=== PATIENT | female | born 1990 | race Caucasian/White ===

== ENCOUNTER → 2018-09-27 12:26 | Outpatient (CLI) | payer MEDICAID, SELFPAY ==
[2018-09-27 13:31] LABS: Absolute Lymphocyte Count 2.85 X10^3/ul (0.83-4.51); Absolute Neutrophil Count 3.1 X10^3/uL (2.0-7.7); Basophil# 0.03 X10^3/uL; Basophil% 0.4 % (0-1); Eosinophil# 0.21 X10^3/uL; Eosinophils% 3.1 % (0-5); Hematocrit 36.6 % (37-47); Hemoglobin 11.8 g/dl (12.0-15.0); Lymphocyte # 2.85 X10^3/ul (4.0); Lymphocyte % 41.9 % (19-41); Mean Corp Hgb Conc 32.2 g/gl (32-36); Mean Corpuscular Hgb 30.6 pg (27.0-32.0); Mean Corpuscular Volume 94.8 fL (81-99); Mean Platelet Vol. 11.3 fl (6.2-12.0); Monocyte# 0.66 X10^3/uL; Monocyte% 9.7 % (0-10); Neutrophil # 3.05 X10^3/uL (2.7-7.7); Neutrophil % 44.8 % (47-70); Platelet Count 215 K/mm3 (150-450); RBC Distribution Width SD 48.4 fl (35.1-43.9); Red Blood Count 3.86 M/mm3 (4.2-5.4); White Blood Count 6.8 K/mm3 (4.4-11.0)
[2018-09-27 13:32] LABS: POSITIVE COUNT NO; POSITIVE DIFFERENTIAL NO; POSITIVE MORPHOLOGY NO
[2018-09-27 13:39] LABS: Protein, Urine (Random) 15.2 mg/dL (<11.9); Protein:Creat Ratio 217 mg/g CRE (0-200)
[2018-09-27 14:02] LABS: ALB/GLOB Ratio 0.8 RATIO (0.9-2.4); AST(SGOT) 30 U/L (15-37); Alanine Aminotransfer ALT/SGPT 41 U/L (13-56); Alkaline Phosphatase 76 U/L (45-117); Anion Gap 8 (5-15); BUN 19 mg/dL (7-18); BUN/Creat Ratio 28.1 RATIO (10-20); Calcium,Total 8.4 mg/dL (8.5-10.1); Chloride 106 mmol/L (98-107); Creatinine, Serum 0.68 mg/dL (0.55-1.02); EST Glomerular Filtration Rate 112 mL/min (>60); Est Glom Filt Rate - Afr Amer 135 mL/min (>60); Globulin 3.9 g/dL (2.2-4.2); Glucose 88 mg/dL (74-106); Phosphorus 3.8 mg/dL (2.5-4.9); Potassium 4.2 mmol/L (3.5-5.1); Protein, Total 6.9 g/dL (6.4-8.2); Sodium Level 141 mmol/L (136-145)
[2018-09-27 14:09] LABS: PTHIN 55.6 pg/mL (18.4-80.1)
[2018-09-27 14:39] LABS: Carbamazepine (Tegretol) 5.2 ug/mL (4.0-12.0); Phenytoin (Dilantin) Level 14.4 mL (10.0-20.0); Valproic Acid (Depakene) Level 63 ug/mL (50-100)
== END ==
PROVIDERS: Family Provider Family Medicine; PCP Family Medicine; Referring Provider Psychiatry & Neurology Neurology; Visit Provider Psychiatry & Neurology Neurology
DX: N18.1 Chronic kidney disease, stage 1 (principal); R56.9 Unspecified convulsions
CPT/HCPCS: 36415; 80053; 80156; 80164; 80185; 82306; 82570; 83970; 84100; 84156; 85025

== ENCOUNTER → 2019-02-15 16:44 | Outpatient (CLI) | payer MEDICAID, SELFPAY ==
--- NOTE | 2019-02-15 17:00 | RAD_ITS ---
STUDY: X-RAY CHEST REASON FOR EXAM: Female, 28 years old. Abnormal weight loss. Cough. TECHNIQUE: PA and lateral views of the chest. COMPARISON: None. FINDINGS: The lungs are clear and expanded. There is no demonstrated pleural abnormality. Normal size heart. Normal mediastinum and nora. Normal visualized pulmonary arteries. Normal visualized aortic arch and descending thoracic aorta. Is marked scoliosis of the thoracolumbar spine. Normal visualized ribs, clavicles, and shoulders. There is no demonstrated abnormality of the visualized soft tissue structures of the upper abdomen. RAD/Chest PA and Lateral IMPRESSION: No acute cardiopulmonary disease. Electronically Signed: Tejas Bethea DO at 18:12 EDT Tel [phone], Service support ,
[2019-02-15 17:04] LABS: Absolute Lymphocyte Count 4.25 X10^3/uL (0.83-4.51); Basophil# 0.06 X10^3/uL; Basophil% 0.6 % (0-1); Eosinophil# 0.09 X10^3/uL; Eosinophils% 0.8 % (0-5); Hematocrit 42.7 % (37-47); Hemoglobin 13.7 g/dL (12.0-15.0); Lymphocyte # 4.25 X10^3/ul (4.0); Lymphocyte % 39.8 % (19-41); Mean Corp Hgb Conc 32.1 g/dL (32-36); Mean Corpuscular Hgb 30.6 pg (27.0-32.0); Mean Corpuscular Volume 95.3 fL (81-99); Mean Platelet Vol. 11.1 fl (6.2-12.0); Monocyte# 1.19 X10^3/uL; Monocyte% 11.2 % (0-10); NRBC Flagged by Analyzer 0 % (0-5); Neutrophil # 5.04 X10^3/uL (2.7-7.7); Neutrophil % 47.2 % (47-70); POSITIVE MORPHOLOGY YES; Platelet Count 162 K/mm3 (150-450); RBC Distribution Width CV 13.9 % (11.6-14.6); RBC Distribution Width SD 48.9 fl (35.1-43.9); Red Blood Count 4.48 M/mm3 (4.2-5.4); White Blood Count 10.7 K/mm3 (4.4-11.0)
[2019-02-15 17:12] LABS: Differential Indicated SCAN CRITERIA MET
[2019-02-15 17:30] LABS: Differential Comment SCANNED
[2019-02-15 17:35] LABS: ALB/GLOB Ratio 0.7 RATIO (0.9-2.4); AST(SGOT) 35 U/L (15-37); Alanine Aminotransfer ALT/SGPT 56 U/L (13-56); Albumin, Serum 3.1 g/dL (3.2-5.0); Alkaline Phosphatase 71 U/L (45-117); Anion Gap 10 (5-15); BUN 32 mg/dL (7-18); BUN/Creat Ratio 36.8 RATIO (10-20); Calcium,Total 8.9 mg/dL (8.5-10.1); Chloride 111 mmol/L (98-107); Creatinine, Serum 0.87 mg/dL (0.55-1.02); EST Glomerular Filtration Rate 83 mL/min (>60); Est Glom Filt Rate - Afr Amer 101 mL/min (>60); Globulin 4.3 g/dL (2.2-4.2); Glucose 94 mg/dL (74-106); Potassium 4.2 mmol/L (3.5-5.1); Prealbumin 21.3 mg/dL (20.0-40.0); Protein, Total 7.4 g/dL (6.4-8.2); Sodium Level 142 mmol/L (136-145)
== END ==
PROVIDERS: Family Provider Family Medicine; PCP Family Medicine; Referring Provider Nurse Practitioner Family; Visit Provider Nurse Practitioner Family
DX: R13.10 Dysphagia, unspecified (principal); R63.4 Abnormal weight loss
CPT/HCPCS: 36415; 71046; 80053; 84134; 85025

== ENCOUNTER → 2019-02-28 12:43 | Outpatient (CLI) | payer MEDICAID, SELFPAY ==
--- NOTE | 2019-02-28 12:44 | RAD_ITS ---
STUDY: SWALLOWING STUDY REASON FOR EXAM: Female, 28 years old. Dysphagia. TECHNIQUE: The examination was performed with Speech Pathology in attendance. Under fluoroscopic observation, the patient ingested thin barium, thick barium, barium pudding, and barium coated cracker. FLUOROSCOPY TIME: 1:00 minutes/seconds. 1157 fluoroscopic images were obtained. RADIOLOGIST INVOLVEMENT: Radiologist was present and providing direct supervision. COMPARISON: None. FINDINGS: The following was observed during swallowing of the various mixtures of barium: Thin Barium: Solid aspiration with ingestion of thin liquids. Thick Barium: There was no evidence of aspiration or laryngeal penetration. Barium Pudding: There was no evidence of aspiration or laryngeal penetration. Barium Coated Cracker: There was no evidence of aspiration or laryngeal penetration. RAD/Swallowing Function w/Video IMPRESSION: Silent aspiration with ingestion of thin liquids. The swallow study findings were discussed with the patient by the speech pathologist at the conclusion of the examination. Please see speech pathology report for more information and recommendations. Electronically Signed: Vitor Gaines, at 15:09 EDT , Service support ,
--- NOTE | 2019-02-28 13:53 | SP.MBSS_ITS ---
PRIMARY / SECONDARY DIAGNOSIS: Dysphagia, unspecified (R13.10) REFERRING PHYSICIAN: Werner Cummings DIRECTOR INTERNAL AUDIT-C CURRENT DIET: regular textures, thin liquids DENTITION: natural teeth MENTAL STATUS: Pt nonverbal with mother present to respond to questions. RESPIRATORY STATUS: O2 via room air PREVIOUS MODIFIED BARIUM SWALLOW STUDY: N/A ?REASON FOR REFERRAL: The patient?s mother has reported the patient is not eating well with roughly 20lb weight loss since November 2018. Patients mother reports patient having occasional coughing with liquids. MEDICAL HISTORY: chronic kidney disease, scoliosis, seizures ? STUDY FINDINGS: Patient participated in a Modified Barium Swallow (MBS) study on 02/28/2019. Dr. Gaines was the radiologist present for this evaluation. This study was recorded in the lateral view and images were sent to PACs for storage. The following consistencies were presented to this patient for analysis of oropharyngeal swallow function: thin liquid, nectar thick liquid, honey thick liquid, and Kitty Doone cookie. Results of the MBS are as follows: ? ? ? PENETRATION / ASPIRATION SCALE (JONES): 1 = does not enter airway 2 = enters airway/above vocal folds/ejected 3 = enters airway/above vocal folds/not ejected 4 = enters airway/contacts vocal folds/ejected 5 = enters airway/contacts vocal folds/not ejected 6 = enters airway/below vocal folds/ejected 7 = enters airway/below vocal folds/not ejected despite effort 8 = enters airway/below vocal folds/no effort ? PENETRATION / ASPIRATION SCALE (SCORE): 1) Thin liquid via single sip from cup= 8 2) [place] thick liquid via single sip from cup = 2 3) [place] thick liquid via single sip from cup =3 4) Honey thick liquid via single sip from cup = 1 5) Cookie = 5 *mixed with residue from honey thick liquid ? IMPRESSION: moderate oropharyngeal dysphagia (R13.12) ? ORAL PHASE CHARACTERIZED BY: ? LABIAL SEAL: no labial escape TONGUE CONTROL DURING BOLUS MANIPULATION: posterior escape of less than half of bolus BOLUS PREPARATION / MASTICATION: slow prolonged chewing/mashing with complete recollection BOLUS TRANSPORT / LINGUAL MOTION: slowed tongue motion ORAL RESIDUE: residue collection on oral structures PHARYNGEAL PHASE CHARACTERIZED BY: INITIATION OF PHARYNGEAL SWALLOW: bolus head in pyriforms at first hyoid excursion SOFT PALATE ELEVATION: no bolus between soft palate and pharyngeal wall LARYNGEAL ELEVATION: partial superior movement of thyroid cartilage/partial approximation of arytenoids cartilage to epiglottic petiole ANTERIOR HYOID EXCURSION: trace anterior movement EPIGLOTTIC MOVEMENT: partial epiglottic inversion *difficult to view due to patient positioning LARYNGEAL VESTIBULE CLOSURE AT HEIGHT OF SWALLOW: incomplete laryngeal vestibule closure with narrow column of air/contrast in laryngeal vestibule PHARYNGEAL STRIPPING WAVE: pharyngeal stripping wave present / complete PHARYNGOESOPHAGEAL SEGMENT OPENING: minimal distension and minimal duration with marked obstruction of flow TONGUE BASE RETRACTION: wide column of contrast between tongue base and posterior pharyngeal wall PHARYNGEAL RESIDUE: collection of residue within or on pharyngeal structures ESOPHAGEAL PHASE CHARACTERIZED BY: ESOPHAGEAL BOLUS CLEARANCE IN THE UPRIGHT POSITION: could not view due to patient positioning ? INTERPRETATION OF RESULTS: Patient presents with moderate oropharyngeal dysphagia (R13.12) likely secondary to increased lethargy and muscle atrophy of swallowing musculature due to decreased appetite over course of past several months. Results of this test were limited due to patient decreased participation (i.e. not initially wanting to trial sips/bites and pulling away) and decreased ability to follow directions. Assistance from patient?s mother required to feed patient bolus trials. Therefore, only a limited amount of trials were able to be completed this date. Oral phase primarily marked by mastication inefficiency with Kitty Doone shortbread cookie resulting in swallow onset delay and premature bolus loss. Oral residue remained. Pharyngeal phase primarily marked by delayed pharyngeal swallow onset timing resulting in reduced closure of the airway during deglutition leading to silent aspiration of thin liquids and penetration above vocal cords with nectar thick liquids. No aspiration with honey thick liquids. Pharyngeal residue noted with all consistencies. Given silent aspiration observed during assessment, clinical assessment at bedside relying on identification of classic overt signs and symptoms of aspiration would be unreliable. RECOMMENDATIONS: DIET TEXTURE RECOMMENDATIONS: Will recommend a mechanical soft textured, nectar liquid diet.? ? COMPENSATORY STRATEGIES RECOMMENDED: Will recommend 1:1 supervision during meals, double swallow with every bite/sip, reduced bolus volume, reduced rate of intake, avoid straws, seated upright at 90 degrees during PO intake, and remain upright for 30-60 minutes post meal (GERD precaution). The patient requires intensive skilled speech-language intervention targeting continued diet texture management, training and implementation of recommended compensatory strategies, training and implementation of recommended oropharyngeal strengthening exercises to facilitate improved oropharyngeal strength and coordination, training, implementation, and patient education regarding implementation of the May Free Water Protocol (FFWP), and patient and caregiver training targeting meal preparation / thickened liquid preparation. This patient would be an excellent candidate for the May Free Water Protocol (FFWP) to facilitate improved liquid intake between meals due to the patient?s strong family support following patient and family training. Would strongly discourage advancement past nectar thickened liquids without completion of a repeat modified barium swallow study in 3-6 months (if clinically appropriate) due to the extent of silent aspiration. The patient demonstrated significant difficulty following all directions presented, with concern for likelihood of compromise in successful execution of recommended compensatory strategies. Results and recommendations were discussed with the patient, patient?s mother, and patient?s sister immediately following MBS completion, with the patient?s mother and sister verbalizing understanding and agreement with all recommendations and education provided. ? IMAGE COUNT: [id number] Narda Singh M.A., CCC-PATIENT FINANCIAL SERVICES SPECIALIST Speech Language Pathologist [facility] [address] [place] [address] [phone]
== END ==
PROVIDERS: Family Provider Family Medicine; PCP Family Medicine; Referring Provider Nurse Practitioner Family; Visit Provider Nurse Practitioner Family
DX: R13.10 Dysphagia, unspecified (principal); R63.4 Abnormal weight loss
CPT/HCPCS: 74230; 92611

== ENCOUNTER 2019-03-26 11:08 | Inpatient (IN) | payer MEDICAID, SELFPAY ==
[2019-03-26] VITALS (12 sets, daily range): BP systolic 74–92; BP diastolic 48–60; PULSE 63–79; RESP 16–32; TEMP 36.1–37.4; O2SAT 95–99; BMI 17.3; BMI 16.5
[2019-03-26 12:46] LABS: Absolute Lymphocyte Count 1.21 X10^3/uL (0.83-4.51); Basophil# 0.03 X10^3/uL; Basophil% 0.3 % (0-1); Hematocrit 42.7 % (37-47); Hemoglobin 14.2 g/dL (12.0-15.0); Lymphocyte # 1.21 X10^3/ul (4.0); Lymphocyte % 11.6 % (19-41); Mean Corp Hgb Conc 33.3 g/dL (32-36); Mean Corpuscular Volume 93.2 fL (81-99); Mean Platelet Vol. 10.4 fl (6.2-12.0); Monocyte# 1.13 X10^3/uL; Monocyte% 10.9 % (0-10); NRBC Flagged by Analyzer 0 % (0-5); Neutrophil # 7.98 X10^3/uL (2.7-7.7); Neutrophil % 76.8 % (47-70); Platelet Count 98 K/mm3 (150-450); RBC Distribution Width CV 15.2 % (11.6-14.6); RBC Distribution Width SD 51.8 fl (35.1-43.9); Red Blood Count 4.58 M/mm3 (4.2-5.4); White Blood Count 10.4 K/mm3 (4.4-11.0)
[2019-03-26 13:04] LABS: ALB/GLOB Ratio 0.7 RATIO (0.9-2.4); AST(SGOT) 109 U/L (15-37); Alanine Aminotransfer ALT/SGPT 92 U/L (13-56); Albumin, Serum 3.3 g/dL (3.2-5.0); Alkaline Phosphatase 72 U/L (45-117); Anion Gap 11 (5-15); BUN 34 mg/dL (7-18); BUN/Creat Ratio 31.2 RATIO (10-20); Calcium,Total 9.5 mg/dL (8.5-10.1); Chloride 105 mmol/L (98-107); Creatinine, Serum 1.09 mg/dL (0.55-1.02); EST Glomerular Filtration Rate 64 mL/min (>60); Est Glom Filt Rate - Afr Amer 78 mL/min (>60); Estimated Creatinine Clearance 56.57 ml/min; Globulin 4.9 g/dL (2.2-4.2); Glucose 62 mg/dL (74-106); Potassium 5.2 mmol/L (3.5-5.1); Protein, Total 8.2 g/dL (6.4-8.2); Sodium Level 138 mmol/L (136-145)
[2019-03-26 13:11] LABS: White Blood Cells 0 SEEN /hpf (0-5)
[2019-03-26 13:16] LABS: Color, Urine Yellow (Yellow); Glucose, Dipstick Normal (Normal); Ketone-Dipstick 50 mg/dl (Negative); Leukocyte Esterase-Dipstick Negative /ul (Negative); Nitrite-Dipstick Negative (Negative); Occult Blood-Urine 25 /ul (Negative); Protein-Dipstick 30 mg/dl (Negative); Urine Clarity Sl. Cloudy (Clear); Urine Urobilinogen 4 mg/dl (Normal)
[2019-03-26 13:18] LABS: Urine Bilirubin Dipstick 1 mg/dL (Negative)
[2019-03-26 13:25] LABS: Bacteria RARE /hpf (None Seen); Mucous, Urine 1+ /hpf (<or=2+); Red Blood Cells-Urine 0-5 SEEN /hpf (0-5); Squamous Epithelial Cells - UA 0-5 SEEN /hpf (5-10)
[2019-03-26 13:47] LABS: Valproic Acid (Depakene) Level 86 ug/mL (50-100)
--- NOTE | 2019-03-26 15:20 | CM.ED ---
Social Work Consult: Support Informant: Dr. Rodriguez Met with patient and patient parents in room. Patient is unable to speak with this social media intern. Patient family stating that patient is dependent for care and treatment. Patient was able to eat on own up until the past few days when patient started to need family to feed patient. Patient family stating that patient has stopped swallowing food and that patient family believes patient change in behavior is due to medication change in 2018. Patient family concerned about patient having needed intake. Patient family stating to have support in the community and to want to see patient taken care of. This social media intern voicing that Emergency department doctor will work with patient and patient family on setting up course of treatment. Collaborating with Dr. Rodriguez, Dr. Rodriguez updated on above information and plans to speak with family about PEG tube options. Cody Marcial MSW, PUJA
--- NOTE | 2019-03-26 15:22 | CT_ITS ---
We are attempting to reach an attending provider to discuss findings. An addendum with communication details will be sent when the communication is complete. STUDY: CT BRAIN WITHOUT CONTRAST REASON FOR EXAM: Female, 28 years old. Mental status change. Seizures. RADIATION DOSAGE (If Supplied By Facility): CTDIvol = ( 44.99 ) mGy, DLP = ( 897.35 ) mGycm TECHNIQUE: Transaxial CT imaging of the brain was performed without administration of intravenous contrast material. Individualized dose optimization techniques were used for this CT. COMPARISON: No relevant priors. FINDINGS: Normal soft tissue structures. Normal calvarium. Normal size ventricles and extra-axial spaces for the patient's age. Normal white matter tracts of the cerebral hemispheres. There is incomplete development of the corpus callosum. There is calcification of the basal ganglia. There is subtle increased density of the right anterior basal ganglia, series 2 image 17/49. Normal brainstem. Normal cerebellum. There are no findings of an acute ischemic infarction. Normal visualized paranasal sinuses. CT/Brain/Head without Contrast IMPRESSION: Right basal ganglia increased density with hemorrhage versus early calcification. There is no mass effect or shift of midline structures. Congenital anomaly suggested. MRI recommended for further evaluation. Electronically Signed: Gerber Flores MD at 15:51 EDT , Service support ,
--- NOTE | 2019-03-26 15:31 | ED.VIS.GEN ---
History of Present Illness Chief Complaint: General Illness Detail of Chief Complaint: Not eating or drinking Informant: Family Limited by: - - Nonverbal with seizure disorder Onset: Days Context: Sudden Onset Timing: Continuous Quality: No solid intake for several days and minimal liquid intake Location: Home Current Severity: Severe Maximum Severity: Severe Worsened by: Unknown Relieved by: Nothing Associated Symptoms: No recent seizure Narrative: Patient is a 28-year-old cognitively impaired female with history of seizure disorder who was brought to the emerge department because she has not had anything to eat or drink of substance in the past week. She has not taken any of her medication. There is been no reported vomiting or diarrhea. Parent states she is nonverbal. History is limited. There is been no documented fever. There is no change in the color of her urine or odor to her urine. Prior similar symptoms: Yes Recent Illness/Hospitalization: No - Past Medical History (1) Chronic kidney disease Status: Chronic (2) Mental retardation, idiopathic moderate Status: Chronic (3) Scoliosis Status: Chronic (4) Seizures Status: Chronic Past Medical History - Allergies and Home Meds Allergies/Adverse Reactions: Allergies No Known Allergies Allergy (Unverified 03/26/19 11:23) Primary Care Physician: Zacarias Paz DO [Primary Care Provider] - Prior records reviewed: Yes Surgical History: no surgical history Lives: With Family Smoking Status: Never smoker Alcohol: None Drugs: None Review of Systems ROS: Unable to Obtain - Nonverbal Physical Exam Vital Signs/Narrative: Vital Signs Temp Pulse Resp BP Pulse Ox 03/26/19 15:00 97.6 F L 70 19 H 87/54 L 98 03/26/19 14:00 97.8 F 67 26 H 92/56 L 98 03/26/19 13:08 65 27 H 88/60 L 99 03/26/19 13:00 97.5 F L 67 27 H 88/60 L 99 03/26/19 12:56 97.5 F L 71 32 H 88/60 L 99 Inital Vital Signs reviewed: Yes General: Cachectic, - - Depressed level of consciousness Head: Normocephalic, Atraumatic Eyes: Perrl, EOMI. Negative for: Pale conjunctiva, Scleral icterus ENT: No rhinorrhea, TM's clear, Dry mucous membranes Neck: Supple, Nontender, No lymphadenopathy, No JVD Cardiovascular: Regular rate, Regular rhythm, No murmurs, Normal S1, Normal S2 Respiratory: No distress, CTA bilaterally, Chest nontender Abdomen: Soft, Nontender, Nondistended, Normal bowel sounds Rectal: Deferred Back: Nontender, Normal Inspection Extremities: Nontender, No edema Skin: No rash, Pallor. Negative for: Cyanosis, Diaphoresis, Jaundice Neurological: Cranial nerves II-XII grossly intact. Negative for: Alert, Oriented x3 Psychological: - - Nonverbal Diagnostic/Tx/Re-eval 03/26/19 15:22 CT Head [Brain/Head without Contrast] [CT] Stat Laboratory Results 03/26/19 03/26/19 03/26/19 12:35 12:35 12:35 WBC 10.4 RBC 4.58 Hgb 14.2 Hct 42.7 MCV 93.2 MCH 31.0 MCHC 33.3 RDW Std Deviation 51.8 H RDW Coeff of Narendra 15.2 H Plt Count 98 L MPV 10.4 Immature Gran % (Auto) 0.400 Neut % (Auto) 76.8 H Lymph % (Auto) 11.6 L Wilkes % (Auto) 10.9 H Eos % (Auto) 0.0 Baso % (Auto) 0.3 Absolute Neuts (auto) 8.0 H Absolute Lymphs (auto) 1.21 Nucleated RBC % 0 Sodium 138 Potassium 5.2 H Chloride 105 Carbon Dioxide 22.0 Anion Gap 11 BUN 34 H Creatinine 1.09 H Estim Creat Clear Calc 56.57 Est GFR (MDRD) Af Amer 78 Est GFR (MDRD) Non-Af 64 BUN/Creatinine Ratio 31.2 H Glucose 62 L Calcium 9.5 Total Bilirubin 0.70 AST 109 H ALT 92 H Alkaline Phosphatase 72 Total Protein 8.2 Albumin 3.3 Globulin 4.9 H Albumin/Globulin Ratio 0.7 L Urine Color Urine Clarity Urine pH Ur Specific Burg[place] Urine Protein Urine Glucose (UA) Urine Ketones Urine Occult Blood Urine Nitrite Urine Bilirubin Urine Urobilinogen Ur Leukocyte Esterase Urine RBC Urine WBC Ur Squamous Epith Cells Urine Bacteria Urine Mucus Valproic Acid 86 03/26/19 13:05 WBC RBC Hgb Hct MCV MCH MCHC RDW Std Deviation RDW Coeff of Narendra Plt Count MPV Immature Gran % (Auto) Neut % (Auto) Lymph % (Auto) Wilkes % (Auto) Eos % (Auto) Baso % (Auto) Absolute Neuts (auto) Absolute Lymphs (auto) Nucleated RBC % Sodium Potassium Chloride Carbon Dioxide Anion Gap BUN Creatinine Estim Creat Clear Calc Est GFR (MDRD) Af Amer Est GFR (MDRD) Non-Af BUN/Creatinine Ratio Glucose Calcium Total Bilirubin AST ALT Alkaline Phosphatase Total Protein Albumin Globulin Albumin/Globulin Ratio Urine Color Yellow Urine Clarity Sl. Cloudy Urine pH 5.0 Ur Specific [place] 1.020 Urine Protein 30 H Urine Glucose (UA) Normal Urine Ketones 50 H Urine Occult Blood 25 H Urine Nitrite Negative Urine Bilirubin 1 H Urine Urobilinogen 4 H Ur Leukocyte Esterase Negative Urine RBC 0-5 SEEN Urine WBC 0 SEEN Ur Squamous Epith Cells 0-5 SEEN Urine Bacteria RARE Urine Mucus 1+ Valproic Acid CT was reviewed by me. There is no acute intracranial pathology noted. Awaiting formal read. Hospitalist was paged for admission and placement of feeding tube by surgery tomorrow. - Medical Decision Making Patient brought in for evaluation because of poor p.o. intake. Parents were made aware of lab results. Clinically child is dehydrated. Discussed placement of feeding tube. Also had case management see patient. Case was discussed with Dr. Pratt who is willing to put a feeding tube in. Since we are concerned with her change in behavior. For this reason a CT of the head was obtained. ED Disposition - Plan for ED Patient: Disposition: Acute Care [facility] Diagnosis: Change in mental status, Weight loss of more than 10% body weight, Severe dehydration, History of seizure disorder, Mental retardation, idiopathic moderate Referrals: Zacarias Paz DO [Primary Care Provider] -
--- NOTE | 2019-03-26 15:51 | HP.PCM_ITS ---
Problem List (1) Weight loss of more than 10% body weight Status: Acute (2) Severe dehydration Status: Acute (3) History of seizure disorder Status: Chronic (4) Mental retardation, idiopathic moderate Status: Chronic (5) Chronic kidney disease Status: Chronic Qualifiers: Chronic kidney disease stage: stage 2 (mild) Qualified Code(s): N18.2 - Chronic kidney disease, stage 2 (mild) (6) Scoliosis Status: Chronic Qualifiers: Scoliosis type: idiopathic Idiopathic scoliosis type: adolescent Spinal region: thoracolumbar Qualified Code(s): M41.125 - Adolescent idiopathic scoliosis, thoracolumbar region (7) Seizures Status: Chronic History of Present Illness Date of Admission: 03/26/19 Chief Complaint: Fatigue, malaise, poor intake The patient is a 28 y/o F w/ PMHx: Moderate MRR, Seizure disorder, CKD stage II (baseilne 0.6-0.8), severe protein calorie nutrition who presents to the [facility] on 03/26/2019 with history of progressive decline over the last 4 weeks following changes to her antiepileptic drugs including di scontinuation of Tegretol with initiation of Keppra with increased seizure activity following with then transition to Zonegran and now Keppra wean with poor oral intake including both food and water with no specific intake of either over the last 3 days with > 10 pound weight loss over this time prompting ED presentation. Family notes that initially with Tegretol discontinuation patient has been much more alert and awake but then did have onset of increased seizure activity. Patient had breakthrough seizure approximately 1 week prior to current presentation and per family report was described as severe per school. Work-up in the ED included CBC with WBC 10.4, hemoglobin 14.2, platelet 98 with left shift, CMP with potassium 5.2, BUN/creatinine 34/1.09, glucose 62, AST/ALT 109/92, urinalysis with evidence of notable dehydration, 50 ketones, 25 blood, negative nitrite, negative leukocyte esterase, no evidence of UTI, CT brain with right basal ganglia increased density with hemorrhage versus early calcification with no mass-effect or shift of midline structures, congenital anomaly suggested. In the ED patient administered 10 cc/kg IVFs. ED discussion with General surgery with given notable decline, 15 lb weight loss < 4 weeks, no intake x 3 days, planned PEG tube placement 03/27/19 pending MRI of the brain given CT findings per discussion with the ED physician. Discussed the CT head findings with family and they understand that if there is any bleed patient would necessitate transfer to tertiary facility with neurosurgeon availability. Past Medical History Past Medical History (Chronic Problems): Chronic Problems (Last Reviewed 02/27/19 @ 10:29 by Zacarias Paz DO) History of seizure disorder (Chronic) Mental retardation, idiopathic moderate (Chronic) Chronic kidney disease (Chronic) Scoliosis (Chronic) Seizures (Chronic) Medical History: Medical History (Last Reviewed 02/27/19 @ 10:29 by Zacarias Paz DO) Chronic kidney disease (Chronic) N18.9 Scoliosis (Chronic) M41.9 Seizures (Chronic) R56.9 Allergies No Known Allergies Allergy (Unverified 03/26/19 11:23) Home Medications: Ambulatory Orders Medication Instructions Recorded divalproex 500 mg tablet,delayed 1,500 mg PO BID tab 02/15/19 release levetiracetam 500 mg tablet 500 mg PO BID tab 02/15/19 Clonazepam 0.5 mg PO UD 03/26/19 Multivitamin with Iron [Daily Dario 1 tab PO DAILY 03/26/19 with Iron] Zonisamide [Zonegran] 200 mg PO BID 03/26/19 Surgical History: Surgical History (Last Reviewed 02/27/19 @ 10:29 by Zacarias Paz DO) History of oral surgery Z98.890 Surgical History: - - Oral surgery, specifically gum surgery. 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 Patient does have a maternal grandfather with diabetes and hypertension. Paternal Family History: Family History (Last Reviewed 02/27/19 @ 10:29 by Zacarias Paz DO) Grandfather Diabetes Hypertension History Items: - - Patient denies any market maternal or paternal family history specifically with no history of heart disease, diabetes or cancer. Patient does have a maternal grandfather with diabetes and hypertension. Review of Systems Constitutional: Reports: Anorexia, Malaise, Weakness, Fatigue. Denies: Chills, Fever, Weight Change HEENT: Denies: Head Aches, Sinus Congestion, Sinus Drainage Cardiovascular: Denies: Chest Pain, Palpitations Respiratory: Denies: Cough, Shortness of breath at rest, Sputum production Gastrointestinal: Denies: Abdominal Pain, Nausea, Vomiting Genitourinary: Denies: Dysuria Musculoskeletal: Denies: Joint Pain, Joint Tenderness Skin: Denies: Rash, Wounds Neurological: Reports: Seizures. Denies: Focal weakness, Numbness, Tingling Psychiatric: Denies: Anxiety, Depression, Homicidal Ideations, Suicidal Ideations Hematologic/ Lymphatic: Denies: Easy Bruising, Easy Bleeding Comment: ROS given per family, patient non-verbal. VTE Information - Inpt Only VTE Present on Admission: No VTE Mechan Device Prophylaxis: SCD's VTE Pharm Prophylaxis ordered?: Yes Patient Problems: Active and Suspected Problems (Last Reviewed 02/27/19 @ 10:29 by Zacarias Paz DO) Change in mental status (Acute) Weight loss of more than 10% body weight (Acute) Severe dehydration (Acute) Subjective: Patient lying in the ED bed, fatigued appearance, very flat affect. Objective: Physical Examination: General: awake, appears alert, not answering any questions, remains cooperative, laying in the ED bed, fatigued appearance. Skin: No color, turgor, no icterus, cyanosis. HEENT: AT/NC, EOM appear intact, lazy eye left eye, PERRLA, dry MM, poor dentition, no carotid bruits or JVD noted. Lungs: Diminished breath sounds bilaterally, poor effort, no rales, ronchi or wheezing. Heart: Regular rate and rhythm; no gallop, rub audible. Abdomen: soft, thin mildly cachectic appearing habitus, NTTP, ND, normal BS, no HSM. Extremities: no cyanosis, clubbing, or edema. Neurological: patient awake, alert, not answering orientation questions; cognitive function baseline decreased given moderate MRDD, currently not baseline intact; pupils equally reactive to light and accomodation; cranial nerves II-XII grossly normal, moving all 4 extremities, no focal deficits, strength moderately to severely global decrease secondary to acute presentation. Psychiatric: affect appears flat, fatigued, no acute evidence of depressive or anxiety feelings. - Physical Exam Vital Signs Temp Pulse Resp BP Pulse Ox 97.6 F L 70 19 H 87/54 L 99 03/26/19 15:00 03/26/19 15:00 03/26/19 15:00 03/26/19 15:00 03/26/19 15:00 Weight: 101 lb Body Mass Index (BMI) 17.3 Intake and Output for Last 24 Hours 03/24/19 03/25/19 03/26/19 23:59 23:59 23:59 Intake Total 500 / 500 Balance 500 / 500 Laboratory Tests Past 24 Hrs 03/26/19 03/26/19 03/26/19 12:35 12:35 12:35 WBC 10.4 RBC 4.58 Hgb 14.2 Hct 42.7 MCV 93.2 MCH 31.0 MCHC 33.3 RDW Std Deviation 51.8 H RDW Coeff of Narendra 15.2 H Plt Count 98 L MPV 10.4 Immature Gran % (Auto) 0.400 Neut % (Auto) 76.8 H Lymph % (Auto) 11.6 L [place] % (Auto) 10.9 H Eos % (Auto) 0.0 Baso % (Auto) 0.3 Absolute Neuts (auto) 8.0 H Absolute Lymphs (auto) 1.21 Nucleated RBC % 0 Sodium 138 Potassium 5.2 H Chloride 105 Carbon Dioxide 22.0 Anion Gap 11 BUN 34 H Creatinine 1.09 H Estim Creat Clear Calc 56.57 Est GFR (MDRD) Af Amer 78 Est GFR (MDRD) Non-Af 64 BUN/Creatinine Ratio 31.2 H Glucose 62 L Calcium 9.5 Total Bilirubin 0.70 AST 109 H ALT 92 H Alkaline Phosphatase 72 Total Protein 8.2 Albumin 3.3 Globulin 4.9 H Albumin/Globulin Ratio 0.7 L Urine Color Urine Clarity Urine pH Ur Specific [place] Urine Protein Urine Glucose (UA) Urine Ketones Urine Occult Blood Urine Nitrite Urine Bilirubin Urine Urobilinogen Ur Leukocyte Esterase Urine RBC Urine WBC Ur Squamous Epith Cells Urine Bacteria Urine Mucus Valproic Acid 86 03/26/19 13:05 WBC RBC Hgb Hct MCV MCH MCHC RDW Std Deviation RDW Coeff of Narendra Plt Count MPV Immature Gran % (Auto) Neut % (Auto) Lymph % (Auto) [place] % (Auto) Eos % (Auto) Baso % (Auto) Absolute Neuts (auto) Absolute Lymphs (auto) Nucleated RBC % Sodium Potassium Chloride Carbon Dioxide Anion Gap BUN Creatinine Estim Creat Clear Calc Est GFR (MDRD) Af Amer Est GFR (MDRD) Non-Af BUN/Creatinine Ratio Glucose Calcium Total Bilirubin AST ALT Alkaline Phosphatase Total Protein Albumin Globulin Albumin/Globulin Ratio Urine Color Yellow Urine Clarity Sl. Cloudy Urine pH 5.0 Ur Specific [place] 1.020 Urine Protein 30 H Urine Glucose (UA) Normal Urine Ketones 50 H Urine Occult Blood 25 H Urine Nitrite Negative Urine Bilirubin 1 H Urine Urobilinogen 4 H Ur Leukocyte Esterase Negative Urine RBC 0-5 SEEN Urine WBC 0 SEEN Ur Squamous Epith Cells 0-5 SEEN Urine Bacteria RARE Urine Mucus 1+ Valproic Acid Assessment/Plan All Active Problems (Last Reviewed 02/27/19 @ 10:29 by Zacarias Paz DO) Change in mental status (Acute) Weight loss of more than 10% body weight (Acute) Severe dehydration (Acute) The patient is a 28 y/o F w/ PMHx: Moderate MRR, Seizure disorder, CKD stage II (baseilne 0.6-0.8), severe protein calorie nutrition who presents to the [facility] on 03/26/2019 with history of progressive decline over the l ast 4 weeks following changes to her antiepileptic drugs including discontinuation of Tegretol with initiation of Keppra with increased seizure activity following with then transition to Zonegran and now Keppra wean with poor oral intake including both food and water with no specific intake of either over the last 3 days with > 10 pound weight loss over this time. 1. Failure to thrive, adult with greater than 15 pound weight loss in <4 weeks, Lack of Intake: Work-up in the ED included CBC with WBC 10.4, hemoglobin 14.2, platelet 98 with left shift, CMP with potassium 5.2, BUN/creatinine 34/1.09, glucose 62, AST/ALT 109/92, urinalysis with evidence of notable dehydration, 50 ketones, 25 blood, negative nitrite, negative leukocyte esterase, no evidence of UTI, CT brain with right basal ganglia increased density with hemorrhage versus early calcification with no mass-effect or shift of midline structures, congenital anomaly suggested. In the ED patient administered 10 cc/kg IVFs. ED discussion with General surgery with given notable decline, 15 lb weight loss < 4 weeks, no intake x 3 days, planned PEG tube placement 03/27/19. In interim if MRI brain as noted with no evidence of intracranial hemorrhage would plan to maintain patient was to [facility] and would admit to medical surgical floor, maintain on IV fluids, obtain mag and fossa levels with supplementation as needed, nutrition consulted for recommendations with tube feed initiation once cleared per surgery. 2. Seizure disorder w/ Breakthrough seizures: Will continue patient home AEDs including Depakote, Keppra, Zonegran, valproic level 86 upon presentation. From discussion with patient family she had previously been on Depakote, Tegretol and Dilantin with breakthrough seizures however and was transitioned at that time to Keppra with discontinuation of Tegretol especially given increased lethargy and fatigue with Tegretol dosing but continued to have increased seizure activity and family noted this is when decline started to occur with most recent evaluation 03/04/2019 with her [facility] neurologist with at that time initiation of Zonegran with wean off Keppra. 3. Hyperkalemia: Admission K 5.2, aggressively hydrating given notable dehydration, repeat BMP. 4. Severe protein-calorie malnutrition: Evidenced per BMI, habitus, muscle and fat loss, extremely poor oral intake including foods and liquids with decline over the last several weeks, nutrition consulted, as noted planned PEG tube 03/27/2019. 5. CKD stage II with Insufficiency secondary to acute presentation, dehydration: Admission BUN/Cr 34/1.09, baseline C 0.6-0.8, hydrating as noted, repeat BMP in AM. 6. DVT Prophylaxis: SCDs, if MRI brain confirms no hemorrhage then would maintain on lovenox. 7. CODE status: Discussed CODE status at length including difference between FULL code, DNR-CCA and DNR-CC status. Following discussions about the differences in these status and currently has been differ on their i ntervention decisions. Has been noted his preference for DNR CCA no intubation however is still not sure and recommended that during this time patient remain full code until they have further discussed and come to a joint decision. Advanced Care Planning Face to Face Time: 18 minutes. Code Visit Inpatient E&M: 95987 Init Hosp L3 Procedures: 01553 Advncd Care Plan 30 Min
--- NOTE | 2019-03-26 15:59 | MRI_ITS ---
STUDY: MRI BRAIN WITHOUT CONTRAST REASON FOR EXAM: Female, [address] brain and altered mental status. TECHNIQUE: Standardized multiplanar fat and water weighted pulse sequences were obtained. COMPARISON: CT brain March 26, 2019 FINDINGS: Normal size of the ventricles and extra-axial spaces for the patient's age. Normal white matter tracts of the supratentorial brain. There is no evidence for recent intracranial ischemia or other cause of cytotoxic edema on diffusion weighted imaging (DWI). Subtle T1 shortening near the caudate head on the right. Basal ganglia otherwise normal. No magnetic susceptibility artifact on SWI. Normal thalami. There is no extra-axial fluid accumulation. Normal flow voids within the major intracranial circulation suggesting patency by spin echo criteria. Normal sella turcica, pituitary gland, infundibular stalk, optic chiasm and hypothalamus. Normal tectal plate and pineal gland. Normal midbrain, alicia and medulla. Normal cerebellum. Normal basal cisterns. Normal bilateral temporal bones. Normal bilateral internal auditory canals. No demonstrated orbital abnormality, within the constraints of a routine brain study. Normal visualized paranasal sinuses. Normal calvarium and skull base. Normal visualized soft tissue structures. Normal visualized upper cervical spine. MRI/Brain without Contrast IMPRESSION: Sagittal T1 shortening right caudate head of uncertain significance. No evidence of magnetic susceptibility to suggest hemorrhage at this time. Follow-up postcontrast image recommended. Electronically Signed: David Melgoza MD at 19:23 EDT , Service support ,
--- NOTE | 2019-03-26 16:47 | NURSING ---
Upon assessing information to prepare to take pt- noticed that CT scan impression is hemorrhage vs. early calcification. Vicki, casework specialist notified that pt would have MRI completed with results prior to leaving ER. Noticed that BGT at 1235 on labs was 62. No meds found on AUG to correct hypoglycemia- ED charge out clerk notified via cortext.
[2019-03-26] MEDS: 0.9% Normal Saline 1,000 ML 999 ML IV (20:37)
[2019-03-26] MEDS: 0.9% NaCl Peripheral Flush Adult/Peds IV ×2 (20:39→21:23)
[2019-03-26 20:40] LABS: Magnesium 2.1 mg/dL (1.6-2.6); Phosphorus 5.6 mg/dL (2.5-4.9)
[2019-03-26] MEDS: Dextrose 50%-Water 25 GM/50 ML DISP.SYRIN IV (21:24)
[2019-03-26 21:56] LABS: Bedside Glucose 50 mg/dL (70-110)
[2019-03-26 23:26] LABS: Bedside Glucose 113 mg/dL (70-110)
[2019-03-27] VITALS (23 sets, daily range): BP systolic 73–111; BP diastolic 42–71; PULSE 53–107; RESP 14–24; TEMP 36.2–38.8; O2SAT 94–100; BMI 16.5
--- NOTE | 2019-03-27 00:37 | NURSING ---
0037- spoke to Dr. Nowak to clarify order for clonazepam, per family pt only takes it prn for seizures. also made Dr. tovar pt BG after D50 was given went up to 113. pts bp still low 86/56 and vsa is q2 hes checks made Dr. Nowak aware per family pt runs on 90's DrBuck states to do vitals q4h. made Dr. tovar NS bolus still running because pt removed her IV line again and we have to insert another one and that we have to give her IV keppra and depakote as well.
[2019-03-27] MEDS: Dextrose 5%/0.9% NaCl 1,000 ML 100 ML IV ×3 (02:14→23:46)
--- NOTE | 2019-03-27 05:55 | RAD_ITS ---
STUDY: X-RAY CHEST REASON FOR EXAM: Female, 28 years old. Cough. TECHNIQUE: Frontal and lateral views of the chest. COMPARISON: None. FINDINGS: There are monitoring devices. The lungs are clear and expanded. There is no demonstrated pleural abnormality. Normal size heart. Normal mediastinum and nora. Normal visualized pulmonary arteries. Normal visualized aortic arch and descending thoracic aorta. There is thoracolumbar scoliosis. Normal visualized ribs, clavicles, and shoulders. There is no demonstrated abnormality of the visualized soft tissue structures of the upper abdomen. RAD/Chest PA and Lateral IMPRESSION: No acute cardiopulmonary disease. Electronically Signed: Gerber Flores MD at 13:13 EDT , Service support ,
[2019-03-27] MEDS: 0.9% NaCl Peripheral Flush Adult/Peds IV (06:02)
[2019-03-27 06:06] LABS: Absolute Lymphocyte Count 2.36 X10^3/uL (0.83-4.51); Absolute Neutrophil Count 3.9 X10^3/uL (2.0-7.7); Basophil# 0.04 X10^3/uL; Basophil% 0.5 % (0-1); Hemoglobin 10.7 g/dL (12.0-15.0); Lymphocyte # 2.36 X10^3/ul (4.0); Lymphocyte % 30.6 % (19-41); Mean Corp Hgb Conc 32.4 g/dL (32-36); Mean Corpuscular Hgb 30.6 pg (27.0-32.0); Mean Corpuscular Volume 94.3 fL (81-99); Monocyte# 1.35 X10^3/uL; Monocyte% 17.5 % (0-10); NRBC Flagged by Analyzer 0 % (0-5); Neutrophil # 3.92 X10^3/uL (2.7-7.7); RBC Distribution Width CV 15.4 % (11.6-14.6); RBC Distribution Width SD 53.1 fl (35.1-43.9); White Blood Count 7.7 K/mm3 (4.4-11.0)
[2019-03-27 06:08] LABS: Partial Thromboplast Time 32.9 Seconds (24.1-36.2)
[2019-03-27 06:22] LABS: ALB/GLOB Ratio 0.7 RATIO (0.9-2.4); AST(SGOT) 67 U/L (15-37); Alanine Aminotransfer ALT/SGPT 60 U/L (13-56); Albumin, Serum 2.3 g/dL (3.2-5.0); Alkaline Phosphatase 47 U/L (45-117); Anion Gap 10 (5-15); BUN 29 mg/dL (7-18); BUN/Creat Ratio 38.4 RATIO (10-20); Calcium,Total 8.1 mg/dL (8.5-10.1); Chloride 115 mmol/L (98-107); Creatinine, Serum 0.76 mg/dL (0.55-1.02); EST Glomerular Filtration Rate 98 mL/min (>60); Est Glom Filt Rate - Afr Amer 118 mL/min (>60); Estimated Creatinine Clearance 77.03 ml/min; Globulin 3.3 g/dL (2.2-4.2); Glucose 83 mg/dL (74-106); Platelet Count 72 K/mm3 (150-450); Potassium 4.5 mmol/L (3.5-5.1); Protein, Total 5.6 g/dL (6.4-8.2); Sodium Level 145 mmol/L (136-145)
--- NOTE | 2019-03-27 09:09 | PCM.PN.HOSP ---
Patient Problems: Active and Suspected Problems (Last Reviewed 02/27/19 @ 10:29 by Zacarias Paz DO) Change in mental status (Acute) Weight loss of more than 10% body weight (Acute) Severe dehydration (Acute) Vitals/I&O's: Vital Signs Temp Pulse Resp BP Pulse Ox 98.6 F 71 18 93/60 97 03/27/19 05:58 03/27/19 05:58 03/27/19 05:58 03/27/19 05:58 03/27/19 05:58 Oxygen Delivery Method Room Air Weight: 43.5 kg Body Mass Index (BMI) 16.5 Intake and Output for Last 24 Hours 03/25/19 03/26/19 03/27/19 23:59 23:59 23:59 Intake Total 1218.02 / 1218.02 1053.65 / 1053.65 Balance 1218.02 / 1218.02 1053.65 / 1053.65 Laboratory Results 03/26/19 12:35: WBC 10.4, RBC 4.58, Hgb 14.2, Hct 42.7, MCV 93.2, MCH 31.0, MCHC 33.3, RDW Std Deviation 51.8 H, RDW Coeff of Narendra 15.2 H, Plt Count 98 L, MPV 10.4, Immature Gran % (Auto) 0.400, Neut % (Auto) 76.8 H, Lymph % (Auto) 11.6 L, [place] % (Auto) 10.9 H, Eos % (Auto) 0.0, Baso % (Auto) 0.3, Absolute Neuts (auto) 8.0 H, Absolute Lymphs (auto) 1.21, Nucleated RBC % 0 03/26/19 12:35: Sodium 138, Potassium 5.2 H, Chloride 105, Carbon Dioxide 22.0, Anion Gap 11, BUN 34 H, Creatinine 1.09 H, Estim Creat Clear Calc 56.57, Est GFR (MDRD) Af Amer 78, Est GFR (MDRD) Non-Af 64, BUN/Creatinine Ratio 31.2 H, Glucose 62 L, Calcium 9.5, Total Bilirubin 0.70, AST 109 H, ALT 92 H, Alkaline Phosphatase 72, Total Protein 8.2, Albumin 3.3, Globulin 4.9 H, Albumin/Globulin Ratio 0.7 L 03/26/19 12:35: Valproic Acid 86 03/26/19 12:35: Phosphorus 5.6 H, Magnesium 2.1 03/26/19 13:05: Urine Color Yellow, Urine Clarity Sl. Cloudy, Urine pH 5.0, Ur Specific [place] 1.020, Urine Protein 30 H, Urine Glucose (UA) Normal, Urine Ketones 50 H, Urine Occult Blood 25 H, Urine Nitrite Negative, Urine Bilirubin 1 H, Urine Urobilinogen 4 H, Ur Leukocyte Esterase Negative, Urine RBC 0-5 SEEN, Urine WBC 0 SEEN, Ur Squamous Epith Cells 0-5 SEEN, Urine Bacteria RARE, Urine Mucus 1+ 03/26/19 20:36: POC Glucose 50 L 03/26/19 23:22: POC Glucose 113 H 03/27/19 05:40: WBC 7.7, RBC 3.50 L, Hgb 10.7 L, Hct 33.0 L, MCV 94.3, MCH 30.6, MCHC 32.4, RDW Std Deviation 53.1 H, RDW Coeff of Narendra 15.4 H, Plt Count 72 L, MPV 11.0, Immature Gran % (Auto) 0.400, Neut % (Auto) 51.0, Lymph % (Auto) 30.6, [place] % (Auto) 17.5 H, Eos % (Auto) 0.0, Baso % (Auto) 0.5, Absolute Neuts (auto) 3.9, Absolute Lymphs (auto) 2.36, Nucleated RBC % 0 03/27/19 05:40: Sodium 145, Potassium 4.5, Chloride 115 H, Carbon Dioxide 20.0 L, Anion Gap 10, BUN 29 H, Creatinine 0.76, Estim Creat Clear Calc 77.03, Est GFR (MDRD) Af Amer 118, Est GFR (MDRD) Non-Af 98, BUN/Creatinine Ratio 38.4 H, Glucose 83, Calcium 8.1 L, Total Bilirubin 0.60, AST 67 H, ALT 60 H, Alkaline Phosphatase 47, Total Protein 5.6 L, Albumin 2.3 L, Globulin 3.3, Albumin/Globulin Ratio 0.7 L 03/27/19 05:40: APTT 32.9 Current Medications Acetaminophen (Tylenol) 650 mg PO Q6H PRN PRN PRN Reason: Non-cardiac pain (mod-severe) Albuterol Sulfate (Ventolin Aerosols) 2.5 mg INHALATION Q2H PRN PRN PRN Reason: dyspnea, wheezing Clonazepam (Klonopin) 0.5 mg PO X1 PRN PRN Reason: SEIZURE Dextrose (D50w Syringe) 0 gm IV X1 PRN; Protocol PRN Reason: Hypoglycemia Last Admin: 03/26/19 21:24 Dose: 25 gm Documented by: Glucagon () 1 mg IM .X1 PRN PRN Reason: Hypoglycemia Hydralazine HCl (Apresoline Iv) 10 mg IV Q4H PRN PRN PRN Reason: SBP > 160 Sodium Chloride () 250 mls @ 15 mls/hr IV .[id number] PRN PRN Reason: SALINE FLUSH Dextrose/Sodium Chloride (Dextrose 5%/0.9% Nacl) 1,000 mls @ 100 mls/hr IV .Q10H ERWIN Last Infusion: 03/27/19 08:53 Dose: 0 mls/hr Documented by: Levetiracetam 500 mg/ Sodium (Chloride) 105 mls @ 400 mls/hr IV Q12 ERWIN Last Infusion: 03/26/19 23:15 Dose: Infused Documented by: Valproic Acid 750 mg/ Dextrose 57.5 mls @ 50 mls/hr IV Q6 ERWIN Last Infusion: 03/27/19 07:10 Dose: Infused Documented by: Lorazepam (Ativan) 2 mg IV X1 PRN PRN Reason: SEIZURES Multivitamins/Minerals (Multivitamin With Minerals) 1 tablet PO DAILY@0800 [facility] Last Admin: 03/27/19 09:08 Dose: Not Given Documented by: Ondansetron HCl (Zofran) 4 mg IV Q8H PRN PRN PRN Reason: NAUSEA/VOMITING Sodium Chloride () 5 - 15 ml IV UD PRN PRN Reason: SALINE FLUSH Last Admin: 03/27/19 06:02 Dose: 10 ml Documented by: Zonisamide (Zonegran) 200 mg PO BID ERWIN Last Admin: 03/27/19 09:08 Dose: Not Given Documented by: Medical Necessity - Tobacco Use Smoking Status: Never smoker Tobacco Use: Non-smoker Assessment/Plan All Active Problems (Last Reviewed 02/27/19 @ 10:29 by Zacarias Paz DO) Change in mental status (Acute) Weight loss of more than 10% body weight (Acute) Severe dehydration (Acute)
--- NOTE | 2019-03-27 09:31 | CON.PCM_ITS ---
Problem List (1) Weight loss of more than 10% body weight Status: Acute (2) Severe dehydration Status: Acute Reason for Consult Date of Consultation: 03/27/19 Reason for Consultation: Severe malnutrition History of Present Illness: The patient is a 28 year old F who presents with decreased appetite and lack of taking any liquid or solid food items for 1 week. Patient's mother and father provide all of patient's history as she is non-verbal and has moderate MRR and seizure disorder. Patient follows with a seizure specialist out of [facility]. Patient's last seizure was on March 18 per parents. Patient has recently had her seizure medication changed multiple times. Her mother notes an average of 2-3 seizures per month. She has only been hospitalized for 2 episodes in the past. She recently had a videofluoroscopy study and Barium swallow on 02/28 which demonstrated the following: Silent aspiration with ingestion of thin liquids. Recommendations included: RECOMMENDATIONS: DIET TEXTURE RECOMMENDATIONS: Will recommend a mechanical soft textured, nectar liquid diet. COMPENSATORY STRATEGIES RECOMMENDED: Will recommend 1:1 supervision during meals, double swallow with every bite/sip, reduced bolus volume, reduced rate of intake, avoid straws, seated upright at 90 degrees during PO intake, and remain upright for 30-60 minutes post meal (GERD precaution). The patient requires intensive skilled speech-language intervention targeting continued diet texture management, training and implementation of recommended compensatory strategies, training and implementation of recommended oropharyngeal strengthening exercises to facilitate improved oropharyngeal strength and coordination, training, implementation, and patient education regarding implementation of the May Free Water Protocol (FFWP), and patient and caregiver training targeting meal preparation / thickened liquid preparation. This patient would be an excellent candidate for the May Free W ater Protocol (FFWP) to facilitate improved liquid intake between meals due to the patient?s strong family support following patient and family training. Would strongly discourage advancement past nectar thickened liquids without completion of a repeat modified barium swallow study in 3-6 months (if clinically appropriate) due to the extent of silent aspiration. The patient demonstrated significant difficulty following all directions presented, with concern for likelihood of compromise in successful execution of recommended compensatory strategies. Results and recommendations were discussed with the patient, patient?s mother, and patient?s sister immediately following MBS completion, with the patient?s mother and sister verbalizing understanding and agreement with all recommendations and education provided. Patient's mother noted her lack of appetite started in January. She noted early February she would only consume liquids more specifically water an cappuccino. Patient's mother noted for the last week she has not even had this. Patient note no previous cardiac history or pulmonary history. Parents note only previous anesthesia was with a dental procedure. They deny any complications. She has no previous history of abdominal surgeries. Past Medical History Past Medical History (Chronic Problems): Chronic Problems (Last Reviewed 02/27/19 @ 10:29 by Zacarias Paz DO) History of seizure disorder (Chronic) Mental retardation, idiopathic moderate (Chronic) Chronic kidney disease (Chronic) Scoliosis (Chronic) Seizures (Chronic) Medical History: Medical History (Last Reviewed 03/27/19 @ 10:49 by Eunice Walsh PA-C) Chronic kidney disease (Chronic) N18.9 Scoliosis (Chronic) M41.9 Seizures (Chronic) R56.9 Allergies No Known Allergies Allergy (Unverified 03/26/19 11:23) Home Medications: Ambulatory Orders Medication Instructions Recorded divalproex 500 mg tablet,delayed 1,500 mg PO BID tab 02/15/19 release levetiracetam 500 mg tablet 500 mg PO BID tab 02/15/19 Clonazepam 0.5 mg PO UD 03/26/19 Multivitamin with Iron [Daily Dario 1 tab PO DAILY 03/26/19 with Iron] Zonisamide [Zonegran] 200 mg PO BID 03/26/19 Surgical History: Surgical History (Last Reviewed 03/27/19 @ 10:49 by Eunice Walsh PA-C) History of oral surgery Z98.890 Surgical History: - - Oral surgery, specifically gum surgery. Psychiatric History: No pertinent psych hx [employer] History: No pertinent [employer] history Lives: With Family Smoking Status: Never smoker Tobacco Use: Non-smoker Alcohol: None Drugs: None - *Family History Maternal Family History: Family History (Last Reviewed 03/27/19 @ 10:49 by Eunice Walsh PA-C) Grandfather Diabetes Hypertension History Items: - - Patient denies any market maternal or paternal family history specifically with no history of heart disease, diabetes or cancer. Patient does have a maternal grandfather with diabetes and hypertension. Paternal Family History: Family History (Last Reviewed 03/27/19 @ 10:49 by Eunice Walsh, PA-C) Grandfather Diabetes Hypertension History Items: - - Patient denies any market maternal or paternal family history specifically with no history of heart disease, diabetes or cancer. Patient does have a maternal grandfather with diabetes and hypertension. Review of Systems Constitutional: Reports: Anorexia, Weight Change HEENT: Reports: Difficulty Swallowing, Dysphasia Cardiovascular: Denies: Chest Pain, Palpitations Respiratory: Denies: Cough, Shortness of breath at rest, Sputum production Gastrointestinal: Denies: Abdominal Pain, Nausea, Vomiting Genitourinary: Denies: Dysuria Musculoskeletal: Denies: Joint Pain, Joint Tenderness Skin: Denies: Rash, Wounds Neurological: Reports: Seizures Psychiatric: Denies: Anxiety, Depression, Homicidal Ideations, Suicidal Ideations Hematologic/ Lymphatic: Reports: Anemia Patient Problems: Active and Suspected Problems (Last Reviewed 02/27/19 @ 10:29 by Zacarias Paz DO) Change in mental status (Acute) Weight loss of more than 10% body weight (Acute) Severe dehydration (Acute) - Physical Exam General: Alert, Cooperative, - - Poor dental hygiene HEENT: Atraumatic Neck: Supple Lungs: Clear to auscultation, Normal air movement Cardiovascular: Regular rate, No murmurs Abdomen: Soft, Non Tender, Non-Distended Extremities: - - Upper extremities contracted. Lower extremities constantly moving Skin: No rashes, No breakdown Musculoskeletal: No Tenderness to Palpation of Joints or Extremities Psych/Mental Status: Appropriate Vital Signs Temp Pulse Resp BP Pulse Ox 98.6 F 60 18 93/60 97 03/27/19 05:58 03/27/19 09:20 03/27/19 05:58 03/27/19 05:58 03/27/19 05:58 Oxygen Delivery Method Room Air Weight: 95 lb 14.4 oz Body Mass Index (BMI) 16.5 Intake and Output for Last 24 Hours 03/25/19 03/26/19 03/27/19 23:59 23:59 23:59 Intake Total 1218.02 / 1218.02 1053.65 / 1053.65 Balance 1218.02 / 1218.02 1053.65 / 1053.65 Laboratory Tests Past 24 Hrs 03/26/19 03/26/19 03/26/19 12:35 12:35 12:35 WBC 10.4 RBC 4.58 Hgb 14.2 Hct 42.7 MCV 93.2 MCH 31.0 MCHC 33.3 RDW Std Deviation 51.8 H RDW Coeff of Narendra 15.2 H Plt Count 98 L MPV 10.4 Immature Gran % (Auto) 0.400 Neut % (Auto) 76.8 H Lymph % (Auto) 11.6 L [place] % (Auto) 10.9 H Eos % (Auto) 0.0 Baso % (Auto) 0.3 Absolute Neuts (auto) 8.0 H Absolute Lymphs (auto) 1.21 Nucleated RBC % 0 APTT Sodium 138 Potassium 5.2 H Chloride 105 Carbon Dioxide 22.0 Anion Gap 11 BUN 34 H Creatinine 1.09 H Estim Creat Clear Calc 56.57 Est GFR (MDRD) Af Amer 78 Est GFR (MDRD) Non-Af 64 BUN/Creatinine Ratio 31.2 H Glucose 62 L Calcium 9.5 Phosphorus Magnesium Total Bilirubin 0.70 AST 109 H ALT 92 H Alkaline Phosphatase 72 Total Protein 8.2 Albumin 3.3 Globulin 4.9 H Albumin/Globulin Ratio 0.7 L Urine Color Urine Clarity Urine pH Ur Specific [place] Urine Protein Urine Glucose (UA) Urine Ketones Urine Occult Blood Urine Nitrite Urine Bilirubin Urine Urobilinogen Ur Leukocyte Esterase Urine RBC Urine WBC Ur Squamous Epith Cells Urine Bacteria Urine Mucus Valproic Acid 86 03/26/19 03/26/19 03/27/19 12:35 13:05 05:40 WBC 7.7 RBC 3.50 L Hgb 10.7 L Hct 33.0 L MCV 94.3 MCH 30.6 MCHC 32.4 RDW Std Deviation 53.1 H RDW Coeff of Narendra 15.4 H Plt Count 72 L MPV 11.0 Immature Gran % (Auto) 0.400 Neut % (Auto) 51.0 Lymph % (Auto) 30.6 [place] % (Auto) 17.5 H Eos % (Auto) 0.0 Baso % (Auto) 0.5 Absolute Neuts (auto) 3.9 Absolute Lymphs (auto) 2.36 Nucleated RBC % 0 APTT Sodium Potassium Chloride Carbon Dioxide Anion Gap BUN Creatinine Estim Creat Clear Calc Est GFR (MDRD) Af Amer Est GFR (MDRD) Non-Af BUN/Creatinine Ratio Glucose Calcium Phosphorus 5.6 H Magnesium 2.1 Total Bilirubin AST ALT Alkaline Phosphatase Total Protein Albumin Globulin Albumin/Globulin Ratio Urine Color Yellow Urine Clarity Sl. Cloudy Urine pH 5.0 Ur Specific [place] 1.020 Urine Protein 30 H Urine Glucose (UA) Normal Urine Ketones 50 H Urine Occult Blood 25 H Urine Nitrite Negative Urine Bilirubin 1 H Urine Urobilinogen 4 H Ur Leukocyte Esterase Negative Urine RBC 0-5 SEEN Urine WBC 0 SEEN Ur Squamous Epith Cells 0-5 SEEN Urine Bacteria RARE Urine Mucus 1+ Valproic Acid 03/27/19 03/27/19 05:40 05:40 WBC RBC Hgb Hct MCV MCH MCHC RDW Std Deviation RDW Coeff of Narendra Plt Count MPV Immature Gran % (Auto) Neut % (Auto) Lymph % (Auto) [place] % (Auto) Eos % (Auto) Baso % (Auto) Absolute Neuts (auto) Absolute Lymphs (auto) Nucleated RBC % APTT 32.9 Sodium 145 Potassium 4.5 Chloride 115 H Carbon Dioxide 20.0 L Anion Gap 10 BUN 29 H Creatinine 0.76 Estim Creat Clear Calc 77.03 Est GFR (MDRD) Af Amer 118 Est GFR (MDRD) Non-Af 98 BUN/Creatinine Ratio 38.4 H Glucose 83 Calcium 8.1 L Phosphorus Magnesium Total Bilirubin 0.60 AST 67 H ALT 60 H Alkaline Phosphatase 47 Total Protein 5.6 L Albumin 2.3 L Globulin 3.3 Albumin/Globulin Ratio 0.7 L Urine Color Urine Clarity Urine pH Ur Specific [place] Urine Protein Urine Glucose (UA) Urine Ketones Urine Occult Blood Urine Nitrite Urine Bilirubin Urine Urobilinogen Ur Leukocyte Esterase Urine RBC Urine WBC Ur Squamous Epith Cells Urine Bacteria Urine Mucus Valproic Acid POC Glucose 03/26/19 03/26/19 23:22 20:36 POC Glucose 113 H 50 L Assessment/Plan All Active Problems (Last Reviewed 02/27/19 @ 10:29 by Zacarias Paz, DO) Change in mental status (Acute) Weight loss of more than 10% body weight (Acute) Severe dehydration (Acute) I have been consulted in conjunction with Dr. Pratt. He will independently evaluate this patient. Impression: Severe malnutrition. Lack of appetite and difficulty swallowing Plan: Patient was discussed with Dr. Pratt. Dr. Pratt will plan to perform an upper scope with PEG tube placement. Procedure was explained to the mother and father with patient listening. Mother and father have had the opportunity to ask and have questions answered. Patient verbally understands and agrees to proceed with the proposed procedure. Thank you for allowing us to participate in this patient's care. Code Visit Office Visits / Consults: [id number] IP Consult L3
--- NOTE | 2019-03-27 09:56 | PCM.PN.HOSP ---
Patient Problems: Active and Suspected Problems (Last Reviewed 02/27/19 @ 10:29 by Zacarias Paz DO) Change in mental status (Acute) Weight loss of more than 10% body weight (Acute) Severe dehydration (Acute) Subjective: Patient is a 28-year-old lady with past medical history single for seizure disorder, moderate MRDD admitted with failure to thrive. Patient apparently lost over 15 pounds in less than a month. BMI on admission was 16.5. Objective: GENERAL: Not seen distress HEENT: Atraumatic; EYES; Anicteric, Normal Conjunctiva NECK; supple, normal thyroid, RESPIRATORY: Clear to auscultation CARDIOVASCULAR: Regular S1 S2, GI: soft, non-tender, normoactive bowel sounds, : No Renal angle tenderness; EXTREMITIES: No edema, no clubbing, MUSCULOSKELETAL:muscle waisting NEURO: Awake; appears not to have any lateralizing signs SKIN: No Rash PSYCH; significantly flat Vitals/I&O's: Vital Signs Temp Pulse Resp BP Pulse Ox 98.3 F 74 16 91/62 100 03/27/19 09:36 03/27/19 09:36 03/27/19 09:36 03/27/19 09:36 03/27/19 09:36 Oxygen Delivery Method Room Air Weight: 43.5 kg Body Mass Index (BMI) 16.5 Intake and Output for Last 24 Hours 03/25/19 03/26/19 03/27/19 23:59 23:59 23:59 Intake Total 1218.02 / 1218.02 1053.65 / 1053.65 Balance 1218.02 / 1218.02 1053.65 / 1053.65 Laboratory Results 03/26/19 12:35: WBC 10.4, RBC 4.58, Hgb 14.2, Hct 42.7, MCV 93.2, MCH 31.0, MCHC 33.3, RDW Std Deviation 51.8 H, RDW Coeff of Narendra 15.2 H, Plt Count 98 L, MPV 10.4, Immature Gran % (Auto) 0.400, Neut % (Auto) 76.8 H, Lymph % (Auto) 11.6 L, [place] % (Auto) 10.9 H, Eos % (Auto) 0.0, Baso % (Auto) 0.3, Absolute Neuts (auto) 8.0 H, Absolute Lymphs (auto) 1.21, Nucleated RBC % 0 03/26/19 12:35: Sodium 138, Potassium 5.2 H, Chloride 105, Carbon Dioxide 22.0, Anion Gap 11, BUN 34 H, Creatinine 1.09 H, Estim Creat Clear Calc 56.57, Est GFR (MDRD) Af Amer 78, Est GFR (MDRD) Non-Af 64, BUN/Creatinine Ratio 31.2 H, Glucose 62 L, Calcium 9.5, Total Bilirubin 0.70, AST 109 H, ALT 92 H, Alkaline Phosphatase 72, Total Protein 8.2, Albumin 3.3, Globulin 4.9 H, Albumin/Globulin Ratio 0.7 L 03/26/19 12:35: Valproic Acid 86 03/26/19 12:35: Phosphorus 5.6 H, Magnesium 2.1 03/26/19 13:05: Urine Color Yellow, Urine Clarity Sl. Cloudy, Urine pH 5.0, Ur Specific [place] 1.020, Urine Protein 30 H, Urine Glucose (UA) Normal, Urine Ketones 50 H, Urine Occult Blood 25 H, Urine Nitrite Negative, Urine Bilirubin 1 H, Urine Urobilinogen 4 H, Ur Leukocyte Esterase Negative, Urine RBC 0-5 SEEN, Urine WBC 0 SEEN, Ur Squamous Epith Cells 0-5 SEEN, Urine Bacteria RARE, Urine Mucus 1+ 03/26/19 20:36: POC Glucose 50 L 03/26/19 23:22: POC Glucose 113 H 03/27/19 05:40: WBC 7.7, RBC 3.50 L, Hgb 10.7 L, Hct 33.0 L, MCV 94.3, MCH 30.6, MCHC 32.4, RDW Std Deviation 53.1 H, RDW Coeff of Narendra 15.4 H, Plt Count 72 L, MPV 11.0, Immature Gran % (Auto) 0.400, Neut % (Auto) 51.0, Lymph % (Auto) 30.6, [place] % (Auto) 17.5 H, Eos % (Auto) 0.0, Baso % (Auto) 0.5, Absolute Neuts (auto) 3.9, Absolute Lymphs (auto) 2.36, Nucleated RBC % 0 03/27/19 05:40: Sodium 145, Potassium 4.5, Chloride 115 H, Carbon Dioxide 20.0 L, Anion Gap 10, BUN 29 H, Creatinine 0.76, Estim Creat Clear Calc 77.03, Est GFR (MDRD) Af Amer 118, Est GFR (MDRD) Non-Af 98, BUN/Creatinine Ratio 38.4 H, Glucose 83, Calcium 8.1 L, Total Bilirubin 0.60, AST 67 H, ALT 60 H, Alkaline Phosphatase 47, Total Protein 5.6 L, Albumin 2.3 L, Globulin 3.3, Albumin/Globulin Ratio 0.7 L 03/27/19 05:40: APTT 32.9 Current Medications Acetaminophen (Tylenol) 650 mg PO Q6H PRN PRN PRN Reason: Non-cardiac pain (mod-severe) Albuterol Sulfate (Ventolin Aerosols) 2.5 mg INHALATION Q2H PRN PRN PRN Reason: dyspnea, wheezing Clonazepam (Klonopin) 0.5 mg PO X1 PRN PRN Reason: SEIZURE Dextrose (D50w Syringe) 0 gm IV X1 PRN; Protocol PRN Reason: Hypoglycemia Last Admin: 03/26/19 21:24 Dose: 25 gm Documented by: Glucagon () 1 mg IM .X1 PRN PRN Reason: Hypoglycemia Hydralazine HCl (Apresoline Iv) 10 mg IV Q4H PRN PRN PRN Reason: SBP > 160 Sodium Chloride () 250 mls @ 15 mls/hr IV .[id number] PRN PRN Reason: SALINE FLUSH Dextrose/Sodium Chloride (Dextrose 5%/0.9% Nacl) 1,000 mls @ 100 mls/hr IV .Q10H [facility] Last Infusion: 03/27/19 09:41 Dose: 100 mls/hr Documented by: Levetiracetam 500 mg/ Sodium (Chloride) 105 mls @ 400 mls/hr IV Q12 ERWIN Last Infusion: 03/26/19 23:15 Dose: Infused Documented by: Valproic Acid 750 mg/ Dextrose 57.5 mls @ 50 mls/hr IV Q6 [facility] Last Infusion: 03/27/19 07:10 Dose: Infused Documented by: Lorazepam (Ativan) 2 mg IV X1 PRN PRN Reason: SEIZURES Multivitamins/Minerals (Multivitamin With Minerals) 1 tablet PO DAILY@0800 [facility] Last Admin: 03/27/19 09:08 Dose: Not Given Documented by: Ondansetron HCl (Zofran) 4 mg IV Q8H PRN PRN PRN Reason: NAUSEA/VOMITING Sodium Chloride () 5 - 15 ml IV UD PRN PRN Reason: SALINE FLUSH Last Admin: 03/27/19 06:02 Dose: 10 ml Documented by: Zonisamide (Zonegran) 200 mg PO BID ERWIN Last Admin: 03/27/19 09:08 Dose: Not Given Documented by: Medical Necessity - Tobacco Use Smoking Status: Never smoker Tobacco Use: Non-smoker Assessment/Plan All Active Problems (Last Reviewed 02/27/19 @ 10:29 by Zacarias Paz, DO) Change in mental status (Acute) Weight loss of more than 10% body weight (Acute) Severe dehydration (Acute) Patient is a 28-year-old lady with past medical history single for seizure disorder, moderate MRDD admitted with failure to thrive. Patient apparently lost over 15 pounds in less than a month. BMI on admission was 16.5. 1. Adult failure to thrive patient has been admitted to regular nursing floor for subsequent evaluation. In view of patient's severe cachexia and malnutrition consult was placed to general surgery to have a PEG tube placed 2. Severe protein calorie malnutrition as evidenced by significant weight loss, muscle wasting low BMI. Consult was placed to dietitian as well as general surgery patient is scheduled to undergo PEG tube placement on 03/27/2019 3. Seizure disorder patient placed on a seizure precautions 4. Moderate MRDD supportive care 5. DVT prophylaxis bilateral SCDs Code Visit Inpatient E&M: 00219 Subs Hosp L2
--- NOTE | 2019-03-27 10:39 | PN.SURG_ITS ---
Patient Problems: Active and Suspected Problems (Last Reviewed 02/27/19 @ 10:29 by Zacarias Paz DO) Change in mental status (Acute) Weight loss of more than 10% body weight (Acute) Severe dehydration (Acute) Subjective: Patient nonverbal - Physical Exam General: Alert, No apparent distress Lungs: Normal air movement Cardiovascular: Regular rate, Regular Rhythm Abdomen: Soft, Non Tender, Non-Distended Vital Signs Temp Pulse Resp BP Pulse Ox 98.3 F 74 16 91/62 100 03/27/19 09:36 03/27/19 09:36 03/27/19 09:36 03/27/19 09:36 03/27/19 09:36 Oxygen Delivery Method Room Air Weight: 95 lb 14.4 oz Body Mass Index (BMI) 16.5 Intake and Output for Last 24 Hours 03/25/19 03/26/19 03/27/19 23:59 23:59 23:59 Intake Total 1218.02 / 1218.02 1053.65 / 1053.65 Balance 1218.02 / 1218.02 1053.65 / 1053.65 Laboratory Tests Past 24 Hrs 03/26/19 03/26/19 03/26/19 12:35 12:35 12:35 WBC 10.4 RBC 4.58 Hgb 14.2 Hct 42.7 MCV 93.2 MCH 31.0 MCHC 33.3 RDW Std Deviation 51.8 H RDW Coeff of Narendra 15.2 H Plt Count 98 L MPV 10.4 Immature Gran % (Auto) 0.400 Neut % (Auto) 76.8 H Lymph % (Auto) 11.6 L [place] % (Auto) 10.9 H Eos % (Auto) 0.0 Baso % (Auto) 0.3 Absolute Neuts (auto) 8.0 H Absolute Lymphs (auto) 1.21 Nucleated RBC % 0 APTT Sodium 138 Potassium 5.2 H Chloride 105 Carbon Dioxide 22.0 Anion Gap 11 BUN 34 H Creatinine 1.09 H Estim Creat Clear Calc 56.57 Est GFR (MDRD) Af Amer 78 Est GFR (MDRD) Non-Af 64 BUN/Creatinine Ratio 31.2 H Glucose 62 L Calcium 9.5 Phosphorus Magnesium Total Bilirubin 0.70 AST 109 H ALT 92 H Alkaline Phosphatase 72 Total Protein 8.2 Albumin 3.3 Globulin 4.9 H Albumin/Globulin Ratio 0.7 L Urine Color Urine Clarity Urine pH Ur Specific [place] Urine Protein Urine Glucose (UA) Urine Ketones Urine Occult Blood Urine Nitrite Urine Bilirubin Urine Urobilinogen Ur Leukocyte Esterase Urine RBC Urine WBC Ur Squamous Epith Cells Urine Bacteria Urine Mucus Valproic Acid 86 03/26/19 03/26/19 03/27/19 12:35 13:05 05:40 WBC 7.7 RBC 3.50 L Hgb 10.7 L Hct 33.0 L MCV 94.3 MCH 30.6 MCHC 32.4 RDW Std Deviation 53.1 H RDW Coeff of Narendra 15.4 H Plt Count 72 L MPV 11.0 Immature Gran % (Auto) 0.400 Neut % (Auto) 51.0 Lymph % (Auto) 30.6 [place] % (Auto) 17.5 H Eos % (Auto) 0.0 Baso % (Auto) 0.5 Absolute Neuts (auto) 3.9 Absolute Lymphs (auto) 2.36 Nucleated RBC % 0 APTT Sodium Potassium Chloride Carbon Dioxide Anion Gap BUN Creatinine Estim Creat Clear Calc Est GFR (MDRD) Af Amer Est GFR (MDRD) Non-Af BUN/Creatinine Ratio Glucose Calcium Phosphorus 5.6 H Magnesium 2.1 Total Bilirubin AST ALT Alkaline Phosphatase Total Protein Albumin Globulin Albumin/Globulin Ratio Urine Color Yellow Urine Clarity Sl. Cloudy Urine pH 5.0 Ur Specific [place] 1.020 Urine Protein 30 H Urine Glucose (UA) Normal Urine Ketones 50 H Urine Occult Blood 25 H Urine Nitrite Negative Urine Bilirubin 1 H Urine Urobilinogen 4 H Ur Leukocyte Esterase Negative Urine RBC 0-5 SEEN Urine WBC 0 SEEN Ur Squamous Epith Cells 0-5 SEEN Urine Bacteria RARE Urine Mucus 1+ Valproic Acid 03/27/19 03/27/19 05:40 05:40 WBC RBC Hgb Hct MCV MCH MCHC RDW Std Deviation RDW Coeff of Narendra Plt Count MPV Immature Gran % (Auto) Neut % (Auto) Lymph % (Auto) [place] % (Auto) Eos % (Auto) Baso % (Auto) Absolute Neuts (auto) Absolute Lymphs (auto) Nucleated RBC % APTT 32.9 Sodium 145 Potassium 4.5 Chloride 115 H Carbon Dioxide 20.0 L Anion Gap 10 BUN 29 H Creatinine 0.76 Estim Creat Clear Calc 77.03 Est GFR (MDRD) Af Amer 118 Est GFR (MDRD) Non-Af 98 BUN/Creatinine Ratio 38.4 H Glucose 83 Calcium 8.1 L Phosphorus Magnesium Total Bilirubin 0.60 AST 67 H ALT 60 H Alkaline Phosphatase 47 Total Protein 5.6 L Albumin 2.3 L Globulin 3.3 Albumin/Globulin Ratio 0.7 L Urine Color Urine Clarity Urine pH Ur Specific [place] Urine Protein Urine Glucose (UA) Urine Ketones Urine Occult Blood Urine Nitrite Urine Bilirubin Urine Urobilinogen Ur Leukocyte Esterase Urine RBC Urine WBC Ur Squamous Epith Cells Urine Bacteria Urine Mucus Valproic Acid POC Glucose 03/26/19 03/26/19 23:22 20:36 POC Glucose 113 H 50 L Medical Necessity - Tobacco Use Smoking Status: Never smoker Tobacco Use: Non-smoker Assessment/Plan All Active Problems (Last Reviewed 02/27/19 @ 10:29 by Zacarias Paz DO) Change in mental status (Acute) Weight loss of more than 10% body weight (Acute) Severe dehydration (Acute) 28-year-old female with malnutrition and dehydration 1. The family is requesting PEG placement for nutrition for the patient who is nonverbal and has seizure disorder. She has not been eating or drinking well lately. I discussed PEG placement with the patient's parents in detail. I discussed the risks including but not limited to bleeding, infection, injury to colon, PEG dislodgment, PEG clogging. The patient's family understands risks and is willing to proceed. I will order a dose of Ancef prior to surgery. Alvaro Pratt MD Pager: [facility] [address] [place] [address], [address] [place] [address] Office:
--- NOTE | 2019-03-27 10:39 | CASEMGMT ---
RN CM Assessment Introduced role of RN CM to patient parents Marvel Mora at bedside.? Patient is currently resting, h/o Nonverbal and cognitively impaired. Information obtained from parents. ?Care providers, pharmacy, and demographics verified. Presentation: Change in mental status, has not been eating or drinking anything of substance in the past week, hasn't taken any medications, weight loss of 10% of body weight. Admit Dx: Weight Loss, FTT Re-Admit: No Barriers/Issues: Patient parents assist with ADLs. Patient attends [facility] and Patient SSA is Sheridan Whipple- person whom calls with any questions. PCP: Zacarias Paz Specialists: Neuro- Dr Ramirez, Nephro- Dr Warner Preferred Pharmacy: [facility], [place] Insurance: PATEL Rx Benefit: Yes? ?LNOK: Parents Henny and Hesham Mora Living Arrangements:?Lives with her parents in a 2 story home, bedroom on fl. 13 steps to enter home from the garage, 4-5 steps to enter from the back. ADL?s: Independent with ambulation, does hold on to things some times. Requires assistance with all ADLs- mother assists. States that patient is Non verbal but can signal when she is hungry or wants something and does go to the cabinets or get things out. Transportation: Hired drivers DME: None HHC: None SNF: None Goal: Home would like to learn from the hospital on how to administer feedings prior to DC if possible. States that if not, ok with HHC to educate them, List provided. This CM discussed would have to call HHC to see if they take PATEL once they choose if it goes that route. Mother states that she will call patient's SSA to see if they know how and teach on administering feedings. Also state that their neighbor who has a child that has had a PEG with feedings for a couple years and possible for them to ask who they used to teach them. Do not want SNF. Denies any further questions/concerns/or issues with DC planning at this time. Aware CM remains available for any emerging needs. DC PLAN: Home with TF set up/coordination and possible HHC for PEG tube Feeding training. NATASHA Wilder
--- NOTE | 2019-03-27 10:46 | NURSING ---
called report to Juanjose in AC
--- NOTE | 2019-03-27 10:48 | NURSING ---
1026 this RN at bedside. Father stated patient is having an episode. Patient with mild tremors and conscious. Lasted 30 seconds. Parents stated this has been the first episode since pt has been off medication for seizures. Stated this was not a seizure just an episode she has when she goes off her medication. Patient condition stable.
--- NOTE | 2019-03-27 11:31 | NURSING ---
1040- iv Depacon ivpb bag tubed down to AC for pt.
[2019-03-27] MEDS: Cefazolin 2 GM in 0.9% Normal Saline 100 ML IV (11:40)
--- NOTE | 2019-03-27 11:58 | OP.ENDO_ITS ---
03/27/2019 Zacarias Paz Re : Upper GI endoscopy procedure for Billie Mora Dear Dr. Paz This procedure was performed on Wednesday, March 27, 2019. My impressions and recommendations are as follows: Impressions : - An externally removable PEG placement was successfully completed. - No specimens collected. Recommendations : - Please follow the post-PEG recommendations including: Nutrition consult for formula and volume, advance food and medications per primary care provider, external bolster snug to abdominal wall, change dressing once per day, may use PEG today for meds and water, may use PEG tomorrow for feedings, antibiotic ointment to site, check site for bleeding q 4 hrs and clean site with soap and water daily and dry thoroughly. - Continue present medications. My findings are described in the full procedure note, which is enclosed. If I can be of further assistance, please feel free to contact me at Doctor phone number(s): , Work: . Sincerely, Alvaro Pratt MD 03/27/2019 11:58:02 AM This report has been signed electronically.
--- NOTE | 2019-03-27 11:58 | PCM.PN.BLA ---
Progress Note PEG successfully placed. May use for meds and tube feeds starting tomorrow. Alvaro Pratt MD
[2019-03-27] MEDS: Morphine 2 MG/ML Syringe IV (15:42)
[2019-03-27] MEDS: Acetaminophen 650 MG Suppository RECTAL (21:05)
--- NOTE | 2019-03-27 23:10 | NURSING ---
Pt mother requested patient not be turned or awaken during the night, unless for vitals signs or medications.
[2019-03-28] VITALS (15 sets, daily range): BP systolic 93–119; BP diastolic 61–94; PULSE 83–113; RESP 14–20; TEMP 36.7–38.2; O2SAT 93–99
--- NOTE | 2019-03-28 00:59 | RAD_ITS ---
STUDY: X-RAY CHEST REASON FOR EXAM: Female, 28 years old. Fever. Questionable aspiration. TECHNIQUE: Single AP portable view of the chest. COMPARISON: March 27, 2019 FINDINGS: Cardiac monitoring leads are present. The lungs are hyperexpanded. Heterogeneous groundglass attenuation is visible at the right lung base. There is patchy left basilar airspace consolidation and possible postobstructive atelectasis. There is no demonstrated pleural abnormality. Normal size heart. Normal mediastinum and nora. There is prominence of the pulmonary hilar arteries without peripheral pulmonary vascular congestion. There is atherosclerotic calcification of the aortic arch with tortuosity. There is a moderate curvature of the lower thoracic spine with convexity towards the left. Normal visualized ribs, clavicles, and shoulders. There is no demonstrated abnormality of the visualized soft tissue structures of the upper abdomen. RAD/Chest 1 View (Portable) IMPRESSION: Left lower lobe airspace consolidation and postobstructive atelectasis and possible right basilar airspace disease. Electronically Signed: Genoveva Mora MD at 3:27 EDT , Service support ,
--- NOTE | 2019-03-28 01:01 | PCM.HOSP.N ---
Hospitalist Note Patient having fever 101.8, 100.4 Fahrenheit; 2 times with heart rate in 90s to 107/min. Respiratory rate about 9 PM yesterday was 24. Patient had PEG tube placement for failure to thrive. She has history of seizure and physical deconditioning and severe protein calorie malnutrition. Sepsis screen labs ordered. First UA was negative WBC 0. UA with urine culture and blood cultures x2 ordered. Empirically started on IV Zosyn.
[2019-03-28] MEDS: Morphine 2 MG/ML Syringe IV ×2 (01:04→14:47)
[2019-03-28 01:52] LABS: Hematocrit 33.9 % (37-47); Hemoglobin 11.4 g/dL (12.0-15.0); Mean Corp Hgb Conc 33.6 g/dL (32-36); Mean Corpuscular Hgb 31.5 pg (27.0-32.0); Mean Corpuscular Volume 93.6 fL (81-99); Mean Platelet Vol. 11.1 fl (6.2-12.0); Platelet Count 64 K/mm3 (150-450); RBC Distribution Width CV 15.4 % (11.6-14.6); RBC Distribution Width SD 52.2 fl (35.1-43.9); Red Blood Count 3.62 M/mm3 (4.2-5.4); White Blood Count 19.4 K/mm3 (4.4-11.0)
[2019-03-28 02:00] LABS: International Normalized Ratio 1.5; Prothrombin Time (Protime)PT. 17.6 SECONDS (11.7-14.9)
[2019-03-28] MEDS: 0.9% NaCl IVPB Med Flush (250 mL) 15 ML IV (02:00)
[2019-03-28 02:08] LABS: Bacteria 0 SEEN /hpf (None Seen); Mucous, Urine 0 SEEN /hpf (<or=2+); Squamous Epithelial Cells - UA 0 SEEN /hpf (5-10); White Blood Cells 0 SEEN /hpf (0-5)
[2019-03-28 02:14] LABS: ALB/GLOB Ratio 0.6 RATIO (0.9-2.4); AST(SGOT) 48 U/L (15-37); Alanine Aminotransfer ALT/SGPT 48 U/L (13-56); Albumin, Serum 2.2 g/dL (3.2-5.0); Alkaline Phosphatase 47 U/L (45-117); Anion Gap 4 (5-15); BUN 16 mg/dL (7-18); BUN/Creat Ratio 18.9 RATIO (10-20); Chloride 116 mmol/L (98-107); Creatinine, Serum 0.84 mg/dL (0.55-1.02); EST Glomerular Filtration Rate 86 mL/min (>60); Est Glom Filt Rate - Afr Amer 104 mL/min (>60); Estimated Creatinine Clearance 69.69 ml/min; Globulin 3.4 g/dL (2.2-4.2); Glucose 145 mg/dL (74-106); Potassium 3.9 mmol/L (3.5-5.1); Protein, Total 5.6 g/dL (6.4-8.2); Sodium Level 143 mmol/L (136-145)
[2019-03-28 02:19] LABS: Lactic Acid 1.9 mmol/L (0.4-2.0)
[2019-03-28 02:20] LABS: Color, Urine Yellow (Yellow); Glucose, Dipstick Normal (Normal); Ketone-Dipstick 5 mg/dl (Negative); Leukocyte Esterase-Dipstick Negative /ul (Negative); Nitrite-Dipstick Negative (Negative); Occult Blood-Urine 25 /ul (Negative); Protein-Dipstick 15 mg/dl (Negative); Urine Bilirubin Dipstick Negative (Negative); Urine Clarity Clear (Clear); Urine Urobilinogen 1 mg/dl (Normal)
[2019-03-28 02:21] LABS: Red Blood Cells-Urine 0-5 SEEN /hpf (0-5)
--- NOTE | 2019-03-28 07:10 | PCM.PN.HOSP ---
Patient Problems: Active and Suspected Problems (Last Reviewed 03/27/19 @ 10:49 by Eunice Walsh PA-C) Change in mental status (Acute) Weight loss of more than 10% body weight (Acute) Severe dehydration (Acute) Subjective: CC: Aspiration pneumonia Patient is a 28-year-old lady admitted with severe adult failure to thrive and severe protein calorie malnutrition. Underwent PEG tube placement on 03/27/[address] Pratt. Her night was complicated by fever tachypnea and subsequent imaging studies demonstrated evidence of aspiration pneumonia subsequently started on Zosyn Objective: GENERAL: Noncommunicative HEENT: Atraumatic; EYES; Anicteric, Normal Conjunctiva NECK; supple, normal thyroid, RESPIRATORY: Diminished to auscultation CARDIOVASCULAR: Regular S1 S2, GI: soft, non-tender, normoactive bowel sounds, : No Renal angle tenderness; EXTREMITIES: No edema, no clubbing, MUSCULOSKELETAL:muscle waisting NEURO: easily arousable SKIN: No Rash PSYCH; significantly flat Vitals/I&O's: Vital Signs Temp Pulse Resp BP Pulse Ox 99.1 F 90 20 H 119/94 H 93 03/28/19 06:20 03/28/19 03:57 03/28/19 02:03 03/28/19 02:03 03/28/19 02:03 Oxygen Delivery Method Room Air Weight: 43.5 kg Body Mass Index (BMI) 16.5 Intake and Output for Last 24 Hours 03/26/19 03/27/19 03/28/19 23:59 23:59 23:59 Intake Total 1218.02 / 1218.02 2716.98 / 2716.98 665.67 / 665.67 Output Total 60 / 60 Balance 1218.02 / 1218.02 2716.98 / 2716.98 605.67 / 605.67 Microbiology Past 72 Hours 03/28/19 01:55 Urine Catheter - Catheter Streptococcus pneumoniae Antigen (M - Final 03/28/19 01:55 Urine Catheter - Catheter Legionella Antigen - Final Laboratory Results 03/28/19 01:36: WBC 19.4 H, RBC 3.62 L, Hgb 11.4 L, Hct 33.9 L, MCV 93.6, MCH 31.5, MCHC 33.6, RDW Std Deviation 52.2 H, RDW Coeff of Narendra 15.4 H, Plt Count 64 L, MPV 11.1 03/28/19 01:36: PT 17.6 H, INR 1.5, APTT 33.0 03/28/19 01:36: Sodium 143, Potassium 3.9, Chloride 116 H, Carbon Dioxide 23.0, Anion Gap 4 L, BUN 16, Creatinine 0.84, Estim Creat Clear Calc 69.69, Est GFR (MDRD) Af Amer 104, Est GFR (MDRD) Non-Af 86, BUN/Creatinine Ratio 18.9, Glucose 145 H, Calcium 8.0 L, Total Bilirubin 0.40, AST 48 H, ALT 48, Alkaline Phosphatase 47, Total Protein 5.6 L, Albumin 2.2 L, Globulin 3.4, Albumin/Globulin Ratio 0.6 L 03/28/19 01:36: Lactic Acid 1.9 03/28/19 01:55: Urine Color Yellow, Urine Clarity Clear, Urine pH 6.0, Ur Specific [place] 1.020, Urine Protein 15 H, Urine Glucose (UA) Normal, Urine Ketones 5 H, Urine Occult Blood 25 H, Urine Nitrite Negative, Urine Bilirubin Negative, Urine Urobilinogen 1 H, Ur Leukocyte Esterase Negative, Urine RBC 0-5 SEEN, Urine WBC 0 SEEN, Ur Squamous Epith Cells 0 SEEN, Urine Bacteria 0 SEEN, Urine Mucus 0 SEEN 03/28/19 06:20: MRSA (PCR) Pending Current Medications Acetaminophen (Tylenol) 650 mg PO Q6H PRN PRN PRN Reason: Non-cardiac pain (mod-severe) Acetaminophen (Tylenol) 650 mg RECTAL Q4H PRN PRN PRN Reason: FEVER, t>101F, Mild pain Last Admin: 03/27/19 21:05 Dose: 650 mg Documented by: Albuterol Sulfate (Ventolin Aerosols) 2.5 mg INHALATION Q2H PRN PRN PRN Reason: dyspnea, wheezing Clonazepam (Klonopin) 0.5 mg PO X1 PRN PRN Reason: SEIZURE Dextrose (D50w Syringe) 0 gm IV X1 PRN; Protocol PRN Reason: Hypoglycemia Last Admin: 03/26/19 21:24 Dose: 25 gm Documented by: Glucagon () 1 mg IM .X1 PRN PRN Reason: Hypoglycemia Guaifenesin (Robitussin Dm) 10 ml PO Q6H PRN PRN PRN Reason: COUGH Hydralazine HCl (Apresoline Iv) 10 mg IV Q4H PRN PRN PRN Reason: SBP > 160 Sodium Chloride () 250 mls @ 15 mls/hr IV .[id number] PRN PRN Reason: SALINE FLUSH Last Infusion: 03/28/19 06:00 Dose: 15 mls/hr Documented by: Dextrose/Sodium Chloride (Dextrose 5%/0.9% Nacl) 1,000 mls @ 100 mls/hr IV .Q10H [facility] Last Infusion: 03/28/19 06:29 Dose: 0 mls/hr Documented by: Levetiracetam 500 mg/ Sodium (Chloride) 105 mls @ 400 mls/hr IV Q12 [facility] Last Infusion: 03/27/19 21:29 Dose: Infused Documented by: Valproic Acid 750 mg/ Dextrose 57.5 mls @ 50 mls/hr IV Q6 [facility] Last Admin: 03/28/19 06:28 Dose: 50 mls/hr Documented by: Piperacillin Sod/Tazobactam (Sod 3.375 gm/ Sodium Chloride) 50 mls @ 12.5 mls/hr IV Q8 [facility] Last Infusion: 03/28/19 06:00 Dose: Infused Documented by: Lorazepam (Ativan) 2 mg IV X1 PRN PRN Reason: SEIZURES Morphine Sulfate () 2 mg IV Q4H PRN PRN PRN Reason: Pain Score 1-10/10 Last Admin: 03/28/19 01:04 Dose: 2 mg Documented by: Multivitamins/Minerals (Multivitamin With Minerals) 1 tablet PO DAILY@0800 [facility] Last Admin: 03/27/19 09:08 Dose: Not Given Documented by: Ondansetron HCl (Zofran) 4 mg IV Q8H PRN PRN PRN Reason: NAUSEA/VOMITING Sodium Chloride () 5 - 15 ml IV UD PRN PRN Reason: SALINE FLUSH Last Admin: 03/27/19 06:02 Dose: 10 ml Documented by: Zonisamide (Zonegran) 200 mg PO BID [facility] Last Admin: 03/27/19 21:59 Dose: Not Given Documented by: Medical Necessity - Tobacco Use Smoking Status: Never smoker Tobacco Use: Non-smoker Assessment/Plan All Active Problems (Last Reviewed 03/27/19 @ 10:49 by Eunice Walsh PA-C) Change in mental status (Acute) Weight loss of more than 10% body weight (Acute) Severe dehydration (Acute) Patient is a 28-year-old lady with past medical history single for seizure disorder, moderate MRDD admitted with failure to thrive. Patient apparently lost over 15 pounds in less than a month. BMI on admission was 16.5. 1. Aspiration pneumonia. ~Patient did develop fever and tachypnea following her procedure. Subsequent imaging studies demonstrated left lower lobe airspace consolidation and possible right basilar airspace disease. Her WBC count also did worsen. Patient was subsequently placed on supplemental oxygen and broad-spectrum antibiotic therapy with IV Zosyn after cultures obtained. 2. Adult failure to thrive ~patient has been admitted to regular nursing floor for subsequent evaluation. In view of patient's severe cachexia and malnutrition consult was placed to general surgery to have a PEG tube placed ~PEG tube was placed on 03/27/2019 3. Severe protein calorie malnutrition as evidenced by significant weight loss, muscle wasting low BMI. Consult was placed to dietitian as well as general surgery patient is scheduled to undergo PEG tube placement on 03/27/2019 ~PEG tube was placed on 03/27/2019 4. Seizure disorder ~patient placed on a seizure precautions ~Continued with Keppra 5. Moderate MRDD ~supportive care 5. DVT prophylaxis ~bilateral SCDs ~Started on Lovenox on 03/28/2019 Active Medications Acetaminophen (Tylenol) 650 mg PO Q6H PRN PRN PRN Reason: Non-cardiac pain (mod-severe) Acetaminophen (Tylenol) 650 mg RECTAL Q4H PRN PRN PRN Reason: FEVER, t>101F, Mild pain Last Admin: 03/27/19 21:05 Dose: 650 mg Documented by: Albuterol Sulfate (Ventolin Aerosols) 2.5 mg INHALATION Q2H PRN PRN PRN Reason: dyspnea, wheezing Clonazepam (Klonopin) 0.5 mg PO X1 PRN PRN Reason: SEIZURE Dextrose (D50w Syringe) 0 gm IV X1 PRN; Protocol PRN Reason: Hypoglycemia Last Admin: 03/26/19 21:24 Dose: 25 gm Documented by: Glucagon () 1 mg IM .X1 PRN PRN Reason: Hypoglycemia Guaifenesin (Robitussin Dm) 10 ml PO Q6H PRN PRN PRN Reason: COUGH Hydralazine HCl (Apresoline Iv) 10 mg IV Q4H PRN PRN PRN Reason: SBP > 160 Sodium Chloride () 250 mls @ 15 mls/hr IV .[id number] PRN PRN Reason: SALINE FLUSH Last Infusion: 03/28/19 06:00 Dose: 15 mls/hr Documented by: Dextrose/Sodium Chloride (Dextrose 5%/0.9% Nacl) 1,000 mls @ 100 mls/hr IV .Q10H [facility] Last Infusion: 03/28/19 06:29 Dose: 0 mls/hr Documented by: Levetiracetam 500 mg/ Sodium (Chloride) 105 mls @ 400 mls/hr IV Q12 [facility] Last Infusion: 03/27/19 21:29 Dose: Infused Documented by: Valproic Acid 750 mg/ Dextrose 57.5 mls @ 50 mls/hr IV Q6 [facility] Last Admin: 03/28/19 06:28 Dose: 50 mls/hr Documented by: Piperacillin Sod/Tazobactam (Sod 3.375 gm/ Sodium Chloride) 50 mls @ 12.5 mls/hr IV Q8 [facility] Last Infusion: 03/28/19 06:00 Dose: Infused Documented by: Lorazepam (Ativan) 2 mg IV X1 PRN PRN Reason: SEIZURES Morphine Sulfate () 2 mg IV Q4H PRN PRN PRN Reason: Pain Score 1-10/10 Last Admin: 03/28/19 01:04 Dose: 2 mg Documented by: Multivitamins/Minerals (Multivitamin With Minerals) 1 tablet PO DAILY@0800 [facility] Last Admin: 03/27/19 09:08 Dose: Not Given Documented by: Ondansetron HCl (Zofran) 4 mg IV Q8H PRN PRN PRN Reason: NAUSEA/VOMITING Sodium Chloride () 5 - 15 ml IV UD PRN PRN Reason: SALINE FLUSH Last Admin: 03/27/19 06:02 Dose: 10 ml Documented by: Zonisamide (Zonegran) 200 mg PO BID [facility] Last Admin: 03/27/19 21:59 Dose: Not Given Documented by: Clinical Impression(s) from Imaging Studies Chest X-Ray 03/27/19 05:55 IMPRESSION: No acute cardiopulmonary disease. Electronically Signed: Gerber Flores MD at 13:13 EDT , Service support , Chest X-Ray 03/28/19 00:59 IMPRESSION: Left lower lobe airspace consolidation and postobstructive atelectasis and possible right basilar airspace disease. Electronically Signed: Genoveva Mora MD at 3:27 EDT , Service support , Code Visit Inpatient E&M: 02092 Subs Hosp L3
[2019-03-28 08:55] LABS: M R Staph aureus DNA By PCR Negative (Negative); Probe Check PASS; Specimen Processing Control PASS
[2019-03-28] MEDS: Enoxaparin 40 MG/0.4 ML Syringe SC (10:20)
[2019-03-28] MEDS: Dextrose 5%/0.9% NaCl 1,000 ML 100 ML IV ×2 (12:32→22:55)
[2019-03-28] MEDS: Zonisamide 50 MG Capsule 200 MG PO ×2 (12:37→22:29)
[2019-03-28] MEDS: Multivitamins,Ther W-Minerals Tablet 1 TABLET PO (12:37)
--- NOTE | 2019-03-28 12:48 | PCM.PN.SRG ---
Patient Problems: Active and Suspected Problems (Last Reviewed 03/27/19 @ 10:49 by Eunice Walsh PA-C) Change in mental status (Acute) Weight loss of more than 10% body weight (Acute) Severe dehydration (Acute) Subjective: Patient had fevers overnight. She also developed a cough. - Physical Exam General: Alert Lungs: Normal air movement Cardiovascular: Regular rate Abdomen: Soft, Non Tender, Non-Distended Vital Signs Temp Pulse Resp BP Pulse Ox 98.9 F 102 H 14 97/61 93 03/28/19 10:21 03/28/19 08:00 03/28/19 08:00 03/28/19 08:00 03/28/19 08:02 Oxygen Delivery Method Room Air Weight: 95 lb 14.4 oz Body Mass Index (BMI) 16.5 Intake and Output for Last 24 Hours 03/26/19 03/27/19 03/28/19 23:59 23:59 23:59 Intake Total 1218.02 / 1218.02 2716.98 / 2716.98 1110.00 / 1110.00 Output Total 60 / 60 Balance 1218.02 / 1218.02 2716.98 / 2716.98 1050.00 / 1050.00 Microbiology Past 72 Hours 03/28/19 05:35 Respiratory Panel (PCR) - Final Mucosa - Nasopharyngeal 03/28/19 01:55 Streptococcus pneumoniae Antigen (M - Final Urine Catheter - Catheter 03/28/19 01:55 Legionella Antigen - Final Urine Catheter - Catheter Laboratory Tests Past 24 Hrs 03/28/19 03/28/19 03/28/19 01:36 01:36 01:36 WBC 19.4 H RBC 3.62 L Hgb 11.4 L Hct 33.9 L MCV 93.6 MCH 31.5 MCHC 33.6 RDW Std Deviation 52.2 H RDW Coeff of Narendra 15.4 H Plt Count 64 L MPV 11.1 PT 17.6 H INR 1.5 APTT 33.0 Sodium 143 Potassium 3.9 Chloride 116 H Carbon Dioxide 23.0 Anion Gap 4 L BUN 16 Creatinine 0.84 Estim Creat Clear Calc 69.69 Est GFR (MDRD) Af Amer 104 Est GFR (MDRD) Non-Af 86 BUN/Creatinine Ratio 18.9 Glucose 145 H Lactic Acid Calcium 8.0 L Total Bilirubin 0.40 AST 48 H ALT 48 Alkaline Phosphatase 47 Total Protein 5.6 L Albumin 2.2 L Globulin 3.4 Albumin/Globulin Ratio 0.6 L Urine Color Urine Clarity Urine pH Ur Specific [place] Urine Protein Urine Glucose (UA) Urine Ketones Urine Occult Blood Urine Nitrite Urine Bilirubin Urine Urobilinogen Ur Leukocyte Esterase Urine RBC Urine WBC Ur Squamous Epith Cells Urine Bacteria Urine Mucus MRSA (PCR) 03/28/19 03/28/19 03/28/19 01:36 01:55 06:20 WBC RBC Hgb Hct MCV MCH MCHC RDW Std Deviation RDW Coeff of Narendra Plt Count MPV PT INR APTT Sodium Potassium Chloride Carbon Dioxide Anion Gap BUN Creatinine Estim Creat Clear Calc Est GFR (MDRD) Af Amer Est GFR (MDRD) Non-Af BUN/Creatinine Ratio Glucose Lactic Acid 1.9 Calcium Total Bilirubin AST ALT Alkaline Phosphatase Total Protein Albumin Globulin Albumin/Globulin Ratio Urine Color Yellow Urine Clarity Clear Urine pH 6.0 Ur Specific [place] 1.020 Urine Protein 15 H Urine Glucose (UA) Normal Urine Ketones 5 H Urine Occult Blood 25 H Urine Nitrite Negative Urine Bilirubin Negative Urine Urobilinogen 1 H Ur Leukocyte Esterase Negative Urine RBC 0-5 SEEN Urine WBC 0 SEEN Ur Squamous Epith Cells 0 SEEN Urine Bacteria 0 SEEN Urine Mucus 0 SEEN MRSA (PCR) Negative Medical Necessity - Tobacco Use Smoking Status: Never smoker Tobacco Use: Non-smoker Assessment/Plan All Active Problems (Last Reviewed 03/27/19 @ 10:49 by Eunice Walsh PA-C) Change in mental status (Acute) Weight loss of more than 10% body weight (Acute) Severe dehydration (Acute) 28-year-old female status post PEG insertion 1. The patient had fever overnight and chest x-ray showed bilateral lower lobe infiltrate. There is concern for aspiration. The abdomen is soft and nontender and PEG tube is able to be used today. Alvaro Pratt MD Pager: [facility] [address] [place] [address], [address] [place] [address] Office:
[2019-03-28] MEDS: 0.9% NaCl Peripheral Flush Adult/Peds IV (14:47)
[2019-03-28] MEDS: Jevity 1.5. 1,000 ML Bottle 240 ML GT ×2 (18:15→22:31)
[2019-03-28] MEDS: BACITRACIN 15 GM Tube 1 APPLIC TOPICAL (22:31)
[2019-03-28] MEDS: Albuterol 2.5 MG/3 ML VIAL.NEB. INHALATION (23:38)
[2019-03-29] VITALS (10 sets, daily range): BP systolic 100–107; BP diastolic 62–74; PULSE 82–109; RESP 16–18; TEMP 37.1–37.8; O2SAT 94–100
[2019-03-29] MEDS: Jevity 1.5. 1,000 ML Bottle 240 ML GT ×4 (06:17→21:22)
[2019-03-29 06:33] LABS: Absolute Lymphocyte Count 2.26 X10^3/uL (0.83-4.51); Absolute Neutrophil Count 8.6 X10^3/uL (2.0-7.7); Basophil# 0.02 X10^3/uL; Basophil% 0.2 % (0-1); Hematocrit 32.8 % (37-47); Hemoglobin 10.7 g/dL (12.0-15.0); Lymphocyte # 2.26 X10^3/ul (4.0); Lymphocyte % 17.1 % (19-41); Mean Corp Hgb Conc 32.6 g/dL (32-36); Mean Corpuscular Hgb 31.2 pg (27.0-32.0); Mean Corpuscular Volume 95.6 fL (81-99); Mean Platelet Vol. 11.1 fl (6.2-12.0); Monocyte# 2.36 X10^3/uL; Monocyte% 17.8 % (0-10); NRBC Flagged by Analyzer 0 % (0-5); Neutrophil # 8.55 X10^3/uL (2.7-7.7); Neutrophil % 64.4 % (47-70); POSITIVE DIFFERENTIAL YES; POSITIVE MORPHOLOGY YES; Platelet Count 71 K/mm3 (150-450); Red Blood Count 3.43 M/mm3 (4.2-5.4); White Blood Count 13.3 K/mm3 (4.4-11.0)
[2019-03-29 06:35] LABS: Differential Indicated SCAN CRITERIA MET
[2019-03-29 06:47] LABS: Anion Gap 5 (5-15); BUN 13 mg/dL (7-18); BUN/Creat Ratio 19.8 RATIO (10-20); Calcium,Total 7.6 mg/dL (8.5-10.1); Chloride 120 mmol/L (98-107); Creatinine, Serum 0.66 mg/dL (0.55-1.02); EST Glomerular Filtration Rate 115 mL/min (>60); Est Glom Filt Rate - Afr Amer 139 mL/min (>60); Glucose 88 mg/dL (74-106); Magnesium 1.8 mg/dL (1.6-2.6); Potassium 3.6 mmol/L (3.5-5.1); Sodium Level 148 mmol/L (136-145)
--- NOTE | 2019-03-29 08:03 | PCM.PN.HOSP ---
Patient Problems: Active and Suspected Problems (Last Reviewed 03/27/19 @ 10:49 by Eunice Walsh PA-C) Change in mental status (Acute) Weight loss of more than 10% body weight (Acute) Severe dehydration (Acute) Subjective: CC follow-up aspiration pneumonia Patient seen appears comfortable at rest. Did spike fever during the night. WBC count trending down but still elevated at 13 K Objective: GENERAL: Noncommunicative HEENT: Atraumatic; EYES; Anicteric, Normal Conjunctiva NECK; supple, normal thyroid, RESPIRATORY: Diminished to auscultation CARDIOVASCULAR: Regular S1 S2, GI: soft, non-tender, normoactive bowel sounds, : No Renal angle tenderness; EXTREMITIES: No edema, no clubbing, MUSCULOSKELETAL:muscle waisting NEURO: easily arousable SKIN: No Rash PSYCH; significantly flat Vitals/I&O's: Vital Signs Temp Pulse Resp BP Pulse Ox 98.9 F 100 18 100/62 100 03/29/19 04:27 03/29/19 04:27 03/29/19 04:27 03/29/19 04:27 03/29/19 04:27 Oxygen Delivery Method Room Air Weight: 43.5 kg Body Mass Index (BMI) 16.5 Intake and Output for Last 24 Hours 03/27/19 03/28/19 03/29/19 23:59 23:59 23:59 Intake Total 2716.98 / 2716.98 3584.34 / 3584.34 106.75 / 106.75 Output Total 60 / 60 Balance 2716.98 / 2716.98 3524.34 / 3524.34 106.75 / 106.75 Microbiology Past 72 Hours 03/28/19 05:35 Mucosa - Nasopharyngeal Respiratory Panel (PCR) - Final 03/28/19 01:55 Urine Catheter - Catheter Streptococcus pneumoniae Antigen (M - Final 03/28/19 01:55 Urine Catheter - Catheter Legionella Antigen - Final Laboratory Results 03/28/19 06:20: MRSA (PCR) Negative 03/29/19 06:06: WBC 13.3 H, RBC 3.43 L, Hgb 10.7 L, Hct 32.8 L, MCV 95.6, MCH 31.2, MCHC 32.6, RDW Std Deviation 57.0 H, RDW Coeff of Narendra 16.0 H, Plt Count 71 L, MPV 11.1, Immature Gran % (Auto) 0.500, Neut % (Auto) 64.4, Lymph % (Auto) 17.1 L, [place] % (Auto) 17.8 H, Eos % (Auto) 0.0, Baso % (Auto) 0.2, Absolute Neuts (auto) 8.6 H, Absolute Lymphs (auto) 2.26, Nucleated RBC % 0, Diff Path Review October03/29/19 06:06: Sodium 148 H, Potassium 3.6, Chloride 120 H, Carbon Dioxide 23.0, Anion Gap 5, BUN 13, Creatinine 0.66, Estim Creat Clear Calc 88.70, Est GFR (MDRD) Af Amer 139, Est GFR (MDRD) Non-Af 115, BUN/Creatinine Ratio 19.8, Glucose 88, Calcium 7.6 L, Magnesium 1.8 Current Medications Acetaminophen (Tylenol) 650 mg PO Q6H PRN PRN PRN Reason: Non-cardiac pain (mod-severe) Acetaminophen (Tylenol) 650 mg RECTAL Q4H PRN PRN PRN Reason: FEVER, t>101F, Mild pain Last Admin: 03/27/19 21:05 Dose: 650 mg Documented by: Albuterol Sulfate (Ventolin Aerosols) 2.5 mg INHALATION Q2H PRN PRN PRN Reason: dyspnea, wheezing Last Admin: 03/28/19 23:38 Dose: 2.5 mg Documented by: Bacitracin (Bacitracin Ointment) 1 applic TOPICAL DAILY ERWIN; Protocol Last Admin: 03/28/19 22:31 Dose: 1 applicatio Documented by: Clonazepam (Klonopin) 0.5 mg PO X1 PRN PRN Reason: SEIZURE Dextrose (D50w Syringe) 0 gm IV X1 PRN; Protocol PRN Reason: Hypoglycemia Last Admin: 03/26/19 21:24 Dose: 25 gm Documented by: Enoxaparin Sodium (Lovenox) 40 mg SC DAILY ERWIN Last Admin: 03/28/19 10:20 Dose: 40 mg Documented by: Enteral Nutritional Formula (Jevity 1.5) 240 ml GT 5X/DAY [facility] Last Admin: 03/29/19 06:17 Dose: 240 ml Documented by: Glucagon () 1 mg IM .X1 PRN PRN Reason: Hypoglycemia Guaifenesin (Robitussin Dm) 10 ml PO Q6H PRN PRN PRN Reason: COUGH Hydralazine HCl (Apresoline Iv) 10 mg IV Q4H PRN PRN PRN Reason: SBP > 160 Sodium Chloride () 250 mls @ 15 mls/hr IV .[id number] PRN PRN Reason: SALINE FLUSH Last Infusion: 03/29/19 06:17 Dose: 0 mls/hr Documented by: Dextrose/Sodium Chloride (Dextrose 5%/0.9% Nacl) 1,000 mls @ 100 mls/hr IV .Q10H [facility] Last Admin: 03/28/19 22:55 Dose: 100 mls/hr Documented by: Piperacillin Sod/Tazobactam (Sod 3.375 gm/ Sodium Chloride) 50 mls @ 12.5 mls/hr IV Q8 [facility] Last Admin: 03/29/19 06:16 Dose: 12.5 mls/hr Documented by: Levetiracetam (Keppra Tablet) 500 mg GT BID [facility] Lorazepam (Ativan) 2 mg IV X1 PRN PRN Reason: SEIZURES Morphine Sulfate () 2 mg IV Q4H PRN PRN PRN Reason: Pain Score 1-1010 Last Admin: 03/28/19 14:47 Dose: 2 mg Documented by: Multivitamins/Minerals (Multivitamin With Minerals) 1 tablet PO DAILY@0800 [facility] Last Admin: 03/28/19 12:37 Dose: 1 tablet Documented by: Ondansetron HCl (Zofran) 4 mg IV Q8H PRN PRN PRN Reason: NAUSEA/VOMITING Sodium Chloride () 5 - 15 ml IV UD PRN PRN Reason: SALINE FLUSH Last Admin: 03/28/19 14:47 Dose: 10 ml Documented by: Valproic Acid (Depakene) 750 mg GT Q6 [facility] Last Admin: 03/29/19 06:15 Dose: 750 mg Documented by: Zonisamide (Zonegran) 200 mg PO BID [facility] Last Admin: 03/28/19 22:29 Dose: 200 mg Documented by: Medical Necessity - Tobacco Use Smoking Status: Never smoker Tobacco Use: Non-smoker Assessment/Plan All Active Problems (Last Reviewed 03/27/19 @ 10:49 by Eunice Walsh PA-C) Change in mental status (Acute) Weight loss of more than 10% body weight (Acute) Severe dehydration (Acute) Patient is a 28-year-old lady with past medical history single for seizure disorder, moderate MRDD admitted with failure to thrive. Patient apparently lost over 15 pounds in less than a month. BMI on admission was 16.5. 1. Aspiration pneumonia. ~Patient did develop fever and tachypnea following her procedure. Subsequent imaging studies demonstrated left lower lobe airspace consolidation and possible right basilar airspace disease. Her WBC count also did worsen. Patient was subsequently placed on supplemental oxygen and broad-spectrum antibiotic therapy with IV Zosyn after cultures obtained. ~03/29/2019: Patient continues to experience fever WBC count is however trending down. 2. Adult failure to thrive ~patient has been admitted to regular nursing floor for subsequent evaluation. In view of patient's severe cachexia and malnutrition consult was placed to general surgery to have a PEG tube placed ~PEG tube was placed on 03/27/2019 ~03/29/2019: Tube feeding was started the day prior and has tolerated well so far 3. Severe protein calorie malnutrition as evidenced by significant weight loss, muscle wasting low BMI. Consult was placed to dietitian as well as general surgery patient is scheduled to undergo PEG tube placement on 03/27/2019 ~PEG tube was placed on 03/27/2019 4. Seizure disorder ~patient placed on a seizure precautions ~Continued with Keppra 5. Moderate MRDD ~supportive care 5. DVT prophylaxis ~bilateral SCDs ~Started on Lovenox on 03/28/2019 Code Visit Inpatient E&M: 92417 Subs Hosp L2
[2019-03-29] MEDS: Dextrose 5%/0.9% NaCl 1,000 ML 100 ML IV ×2 (09:31→19:52)
[2019-03-29] MEDS: Multivitamins,Ther W-Minerals Tablet 1 TABLET PO (09:40)
[2019-03-29] MEDS: Enoxaparin 40 MG/0.4 ML Syringe SC (09:40)
[2019-03-29] MEDS: BACITRACIN 15 GM Tube 1 APPLIC TOPICAL (09:40)
[2019-03-29] MEDS: levETIRAcetam 500 MG Tablet GT ×2 (09:41→21:22)
[2019-03-29 10:16] LABS: Pathologist Review Reviewed
[2019-03-29] MEDS: Zonisamide 50 MG Capsule 200 MG PO (14:52)
--- NOTE | 2019-03-29 15:28 | CASEMGMT ---
MAHI LEAL updated that patient may discharge over the weekend and will require tube feed and HHC at discharge. MAHI LEAL received script for tube feed. MAHI LEAL in to talk with patient's mother who is agreeable to HHC with a company in-network with insurance and goes to [place] and accepts insurance. Family updated with choice for suppliers for tube feed and agreeable to [facility]. MAHI LEAL sent referral to [facility] and patient is covered at 100%. [facility] will call nursing floor on weekend to confirm discharge. MAHI LEAL sent referrals to [facility], and [facility] and they are not able to provided HHC services due to staffing. MAHI LEAL sent referral to [facility] and they are able to accept the patient. MAHI LEAL updated the patient's mother regarding setup of tube feed and HHC. Mother voiced understanding. Disposition Plan: Patient to discharge home with [facility] for HHC and [facility] for tube feed supplies.
[2019-03-30] VITALS (7 sets, daily range): BP systolic 101–133; BP diastolic 53–68; PULSE 77–92; RESP 16–18; TEMP 36.6–37.6; O2SAT 95–100
[2019-03-30] MEDS: Zonisamide 50 MG Capsule 200 MG PO ×3 (00:32→22:56)
[2019-03-30] MEDS: Jevity 1.5. 1,000 ML Bottle 240 ML GT ×5 (06:17→22:35)
[2019-03-30] MEDS: 0.9% NaCl IVPB Med Flush (250 mL) 15 ML IV (06:17)
[2019-03-30 07:33] LABS: Absolute Lymphocyte Count 2.81 X10^3/uL (0.83-4.51); Absolute Neutrophil Count 5.7 X10^3/uL (2.0-7.7); Basophil# 0.04 X10^3/uL; Basophil% 0.4 % (0-1); Hematocrit 29.3 % (37-47); Hemoglobin 9.8 g/dL (12.0-15.0); Lymphocyte # 2.81 X10^3/ul (4.0); Lymphocyte % 27.5 % (19-41); Mean Corp Hgb Conc 33.4 g/dL (32-36); Mean Corpuscular Hgb 31.4 pg (27.0-32.0); Mean Corpuscular Volume 93.9 fL (81-99); Mean Platelet Vol. 11.2 fl (6.2-12.0); Monocyte# 1.63 X10^3/uL; NRBC Flagged by Analyzer 0 % (0-5); Neutrophil # 5.69 X10^3/uL (2.7-7.7); Neutrophil % 55.7 % (47-70); POSITIVE DIFFERENTIAL YES; Platelet Count 85 K/mm3 (150-450); RBC Distribution Width CV 16.1 % (11.6-14.6); RBC Distribution Width SD 55.6 fl (35.1-43.9); Red Blood Count 3.12 M/mm3 (4.2-5.4); White Blood Count 10.2 K/mm3 (4.4-11.0)
[2019-03-30 07:47] LABS: Differential Indicated SCAN CRITERIA MET
[2019-03-30 07:49] LABS: Anion Gap 6 (5-15); BUN 16 mg/dL (7-18); BUN/Creat Ratio 27.3 RATIO (10-20); Calcium,Total 7.6 mg/dL (8.5-10.1); Chloride 116 mmol/L (98-107); Creatinine, Serum 0.59 mg/dL (0.55-1.02); EST Glomerular Filtration Rate 131 mL/min (>60); Est Glom Filt Rate - Afr Amer 159 mL/min (>60); Estimated Creatinine Clearance 99.23 ml/min; Glucose 80 mg/dL (74-106); Potassium 3.5 mmol/L (3.5-5.1); Sodium Level 145 mmol/L (136-145)
[2019-03-30 08:09] LABS: Differential Comment SCANNED
--- NOTE | 2019-03-30 08:10 | PN_ITS ---
Patient Problems: Active and Suspected Problems (Last Reviewed 03/27/19 @ 10:49 by Eunice Walsh PA-C) Change in mental status (Acute) Weight loss of more than 10% body weight (Acute) Severe dehydration (Acute) Subjective: CC follow-up aspiration pneumonia Per family patient was restless during the evening. Patient underwent speech evaluation today prior and she was given okay to have medications via mouth Objective: GENERAL: Noncommunicative HEENT: Atraumatic; EYES; Anicteric, Normal Conjunctiva NECK; supple, normal thyroid, RESPIRATORY: Diminished to auscultation CARDIOVASCULAR: Regular S1 S2, GI: soft, non-tender, normoactive bowel sounds, : No Renal angle tenderness; EXTREMITIES: No edema, no clubbing, MUSCULOSKELETAL:muscle waisting NEURO: easily arousable SKIN: No Rash PSYCH; significantly flat Vitals/I&O's: Vital Signs Temp Pulse Resp BP Pulse Ox 99.4 F H 86 16 103/62 99 03/30/19 06:13 03/30/19 06:13 03/30/19 06:13 03/30/19 06:13 03/30/19 06:13 Oxygen Delivery Method Room Air Weight: 43.5 kg Body Mass Index (BMI) 16.5 Intake and Output for Last 24 Hours 03/28/19 03/29/19 03/30/19 23:59 23:59 23:59 Intake Total 3584.34 / 3584.34 3866.75 / 3866.75 465.25 / 465.25 Output Total 60 / 60 Balance 3524.34 / 3524.34 3866.75 / 3866.75 465.25 / 465.25 Microbiology Past 72 Hours 03/28/19 01:55 Urine, Catheterized Urine Culture - Final Culture exhibits no growth. 03/28/19 05:35 Mucosa - Nasopharyngeal Respiratory Panel (PCR) - Final 03/28/19 01:55 Urine Catheter - Catheter Streptococcus pneumoniae Antigen (M - Final 03/28/19 01:55 Urine Catheter - Catheter Legionella Antigen - Final Laboratory Results 03/29/19 06:06: Diff Path Review Reviewed 03/30/19 06:18: WBC 10.2, RBC 3.12 L, Hgb 9.8 L, Hct 29.3 L, MCV 93.9, MCH 31.4, MCHC 33.4, RDW Std Deviation 55.6 H, RDW Coeff of Narendra 16.1 H, Plt Count 85 L, MPV 11.2, Immature Gran % (Auto) 0.400, Neut % (Auto) 55.7, Lymph % (Auto) 27.5, [place] % (Auto) 16.0 H, Eos % (Auto) 0.0, Baso % (Auto) 0.4, Absolute Neuts (auto) 5.7, Absolute Lymphs (auto) 2.81, Nucleated RBC % 0, Differential Comment SCANNED 03/30/19 06:18: Sodium 145, Potassium 3.5, Chloride 116 H, Carbon Dioxide 23.0, Anion Gap 6, BUN 16, Creatinine 0.59, Estim Creat Clear Calc 99.23, Est GFR (MDRD) Af Amer 159, Est GFR (MDRD) Non-Af 131, BUN/Creatinine Ratio 27.3 H, Glucose 80, Calcium 7.6 L Current Medications Acetaminophen (Tylenol) 650 mg PO Q6H PRN PRN PRN Reason: Non-cardiac pain (mod-severe) Acetaminophen (Tylenol) 650 mg RECTAL Q4H PRN PRN PRN Reason: FEVER, t>101F, Mild pain Last Admin: 03/27/19 21:05 Dose: 650 mg Documented by: Albuterol Sulfate (Ventolin Aerosols) 2.5 mg INHALATION Q2H PRN PRN PRN Reason: dyspnea, wheezing Last Admin: 03/28/19 23:38 Dose: 2.5 mg Documented by: Bacitracin (Bacitracin Ointment) 1 applic TOPICAL DAILY ERWIN; Protocol Last Admin: 03/29/19 09:40 Dose: 1 applicatio Documented by: Clonazepam (Klonopin) 0.5 mg PO X1 PRN PRN Reason: SEIZURE Dextrose (D50w Syringe) 0 gm IV X1 PRN; Protocol PRN Reason: Hypoglycemia Last Admin: 03/26/19 21:24 Dose: 25 gm Documented by: Enteral Nutritional Formula (Jevity 1.5) 240 ml GT 5X/DAY [facility] Last Admin: 03/30/19 06:17 Dose: 240 ml Documented by: Glucagon () 1 mg IM .X1 PRN PRN Reason: Hypoglycemia Guaifenesin (Robitussin Dm) 10 ml PO Q6H PRN PRN PRN Reason: COUGH Hydralazine HCl (Apresoline Iv) 10 mg IV Q4H PRN PRN PRN Reason: SBP > 160 Sodium Chloride () 250 mls @ 15 mls/hr IV .[id number] PRN PRN Reason: SALINE FLUSH Last Infusion: 03/30/19 06:18 Dose: 0 mls/hr Documented by: Dextrose/Sodium Chloride (Dextrose 5%/0.9% Nacl) 1,000 mls @ 100 mls/hr IV .Q10H [facility] Last Admin: 03/29/19 19:52 Dose: 100 mls/hr Documented by: Piperacillin Sod/Tazobactam (Sod 3.375 gm/ Sodium Chloride) 50 mls @ 12.5 mls/hr IV Q8 [facility] Last Admin: 03/30/19 06:15 Dose: 12.5 mls/hr Documented by: Levetiracetam (Keppra Tablet) 500 mg GT BID [facility] Last Admin: 03/29/19 21:22 Dose: 500 mg Documented by: Lorazepam (Ativan) 2 mg IV X1 PRN PRN Reason: SEIZURES Morphine Sulfate () 2 mg IV Q4H PRN PRN PRN Reason: Pain Score 1-1010 Last Admin: 03/28/19 14:47 Dose: 2 mg Documented by: Multivitamins/Minerals (Multivitamin With Minerals) 1 tablet PO DAILY@0800 [facility] Last Admin: 03/29/19 09:40 Dose: 1 tablet Documented by: Ondansetron HCl (Zofran) 4 mg IV Q8H PRN PRN PRN Reason: NAUSEA/VOMITING Sodium Chloride () 5 - 15 ml IV UD PRN PRN Reason: SALINE FLUSH Last Admin: 03/28/19 14:47 Dose: 10 ml Documented by: Valproic Acid (Depakene) 750 mg GT Q6 [facility] Last Admin: 03/30/19 06:16 Dose: 750 mg Documented by: Zonisamide (Zonegran) 200 mg PO BID [facility] Last Admin: 03/30/19 00:32 Dose: 200 mg Documented by: Medical Necessity - Tobacco Use Smoking Status: Never smoker Tobacco Use: Non-smoker Assessment/Plan All Active Problems (Last Reviewed 03/27/19 @ 10:49 by Eunice Walsh PA-C) Change in mental status (Acute) Weight loss of more than 10% body weight (Acute) Severe dehydration (Acute) Patient is a 28-year-old lady with past medical history single for seizure disorder, moderate MRDD admitted with failure to thrive. Patient apparently lost over 15 pounds in less than a month. BMI on admission was 16.5. 1. Aspiration pneumonia. ~Patient did develop fever and tachypnea following her procedure. Subsequent imaging studies demonstrated left lower lobe airspace consolidation and possible right basilar airspace disease. Her WBC count also did worsen. Patient was subsequently placed on supplemental oxygen and broad-spectrum antibiotic therapy with IV Zosyn after cultures obtained. ~03/29/2019: Patient continues to experience fever WBC count is however trending down. ~03/30/2019 patient seen WBC count continues to trend down still experiencing low-grade fevers 2. Adult failure to thrive ~patient has been admitted to regular nursing floor for subsequent evaluation. In view of patient's severe cachexia and malnutrition consult was placed to general surgery to have a PEG tube placed ~PEG tube was placed on 03/27/2019 ~03/29/2019: Tube feeding was started the day prior and has tolerated well so far 3. Severe protein calorie malnutrition as evidenced by significant weight loss, muscle wasting low BMI. Consult was placed to dietitian as well as general surgery patient is scheduled to undergo PEG tube placement on 03/27/2019 ~PEG tube was placed on 03/27/2019 4. Seizure disorder ~patient placed on a seizure precautions ~Continued with Keppra ~Zonisamide and on 03/29/2019 after getting the okay from speech therapy for patient to swallow pills 5. Moderate MRDD ~supportive care 5. DVT prophylaxis ~bilateral SCDs ~Started on Lovenox on 03/28/2019 Active Medications Acetaminophen (Tylenol) 650 mg PO Q6H PRN PRN PRN Reason: Non-cardiac pain (mod-severe) Acetaminophen (Tylenol) 650 mg RECTAL Q4H PRN PRN PRN Reason: FEVER, t>101F, Mild pain Last Admin: 03/27/19 21:05 Dose: 650 mg Documented by: Albuterol Sulfate (Ventolin Aerosols) 2.5 mg INHALATION Q2H PRN PRN PRN Reason: dyspnea, wheezing Last Admin: 03/28/19 23:38 Dose: 2.5 mg Documented by: Bacitracin (Bacitracin Ointment) 1 applic TOPICAL DAILY ERWIN; Protocol Last Admin: 03/30/19 09:32 Dose: 1 applicatio Documented by: Clonazepam (Klonopin) 0.5 mg PO X1 PRN PRN Reason: SEIZURE Dextrose (D50w Syringe) 0 gm IV X1 PRN; Protocol PRN Reason: Hypoglycemia Last Admin: 03/26/19 21:24 Dose: 25 gm Documented by: Enteral Nutritional Formula (Jevity 1.5) 240 ml GT 5X/DAY [facility] Last Admin: 03/30/19 06:17 Dose: 240 ml Documented by: Glucagon () 1 mg IM .X1 PRN PRN Reason: Hypoglycemia Guaifenesin (Robitussin Dm) 10 ml PO Q6H PRN PRN PRN Reason: COUGH Hydralazine HCl (Apresoline Iv) 10 mg IV Q4H PRN PRN PRN Reason: SBP > 160 Sodium Chloride () 250 mls @ 15 mls/hr IV .[id number] PRN PRN Reason: SALINE FLUSH Last Infusion: 03/30/19 06:18 Dose: 0 mls/hr Documented by: Dextrose/Sodium Chloride (Dextrose 5%/0.9% Nacl) 1,000 mls @ 100 mls/hr IV .Q10H [facility] Last Admin: 03/30/19 09:28 Dose: 100 mls/hr Documented by: Piperacillin Sod/Tazobactam (Sod 3.375 gm/ Sodium Chloride) 50 mls @ 12.5 mls/hr IV Q8 [facility] Last Admin: 03/30/19 06:15 Dose: 12.5 mls/hr Documented by: Levetiracetam (Keppra Oral Solution) 500 mg GT BID [facility] Lorazepam (Ativan) 2 mg IV X1 PRN PRN Reason: SEIZURES Morphine Sulfate () 2 mg IV Q4H PRN PRN PRN Reason: Pain Score 1-10/10 Last Admin: 03/28/19 14:47 Dose: 2 mg Documented by: Multivitamins/Minerals (Multivitamin With Minerals) 1 tablet PO DAILY@0800 [facility] Last Admin: 03/30/19 08:58 Dose: 1 tablet Documented by: Ondansetron HCl (Zofran) 4 mg IV Q8H PRN PRN PRN Reason: NAUSEA/VOMITING Sodium Chloride () 5 - 15 ml IV UD PRN PRN Reason: SALINE FLUSH Last Admin: 03/28/19 14:47 Dose: 10 ml Documented by: Valproic Acid (Depakene) 750 mg GT Q6 [facility] Last Admin: 03/30/19 06:16 Dose: 750 mg Documented by: Zonisamide (Zonegran) 200 mg PO BID [facility] Last Admin: 03/30/19 09:11 Dose: 200 mg Documented by: Code Visit Inpatient E&M: [id number] Subs Hosp L2
[2019-03-30] MEDS: Multivitamins,Ther W-Minerals Tablet 1 TABLET PO (08:58)
[2019-03-30] MEDS: levETIRAcetam 500 MG Tablet GT (09:05)
[2019-03-30] MEDS: Dextrose 5%/0.9% NaCl 1,000 ML 100 ML IV ×2 (09:28→19:31)
[2019-03-30] MEDS: BACITRACIN 15 GM Tube 1 APPLIC TOPICAL (09:32)
--- NOTE | 2019-03-30 14:30 | NURSING ---
pt bladder scanned for 550cc. assisted pt to bathroom, pt unable to void at this time. mother wants to wait for straight cath. Will continue to monitor.
[2019-03-30] MEDS: Acetaminophen 325 MG Tablet 650 MG PO (14:35)
[2019-03-30] MEDS: levETIRAcetam Oral Solution 500 MG/5 ML GT (22:33)
[2019-03-31 05:17] VITALS: BP 103/71; PULSE 79; RESP 18; TEMP 36.9; O2SAT 99
[2019-03-31] MEDS: 0.9% NaCl Peripheral Flush Adult/Peds IV ×2 (05:42→06:05)
[2019-03-31] MEDS: Dextrose 5%/0.9% NaCl 1,000 ML 100 ML IV (06:00)
[2019-03-31] MEDS: Jevity 1.5. 1,000 ML Bottle 240 ML GT ×3 (06:07→15:32)
[2019-03-31 06:28] LABS: Absolute Lymphocyte Count 2.71 X10^3/uL (0.83-4.51); Absolute Neutrophil Count 2.8 X10^3/uL (2.0-7.7); Anion Gap 5 (5-15); BUN 20 mg/dL (7-18); Basophil# 0.03 X10^3/uL; Basophil% 0.5 % (0-1); Calcium,Total 7.3 mg/dL (8.5-10.1); Chloride 116 mmol/L (98-107); Creatinine, Serum 0.54 mg/dL (0.55-1.02); EST Glomerular Filtration Rate 144 mL/min (>60); Eosinophil# 0.11 X10^3/uL; Eosinophils% 1.7 % (0-5); Est Glom Filt Rate - Afr Amer 174 mL/min (>60); Estimated Creatinine Clearance 108.41 ml/min; Glucose 77 mg/dL (74-106); Hematocrit 31.4 % (37-47); Hemoglobin 10.3 g/dL (12.0-15.0); Lymphocyte # 2.71 X10^3/ul (4.0); Lymphocyte % 40.9 % (19-41); Mean Corp Hgb Conc 32.8 g/dL (32-36); Mean Corpuscular Hgb 31.2 pg (27.0-32.0); Mean Corpuscular Volume 95.2 fL (81-99); Monocyte# 0.97 X10^3/uL; Monocyte% 14.7 % (0-10); NRBC Flagged by Analyzer 0 % (0-5); Neutrophil # 2.76 X10^3/uL (2.7-7.7); Neutrophil % 41.6 % (47-70); Platelet Count 85 K/mm3 (150-450); Potassium 3.7 mmol/L (3.5-5.1); RBC Distribution Width CV 15.8 % (11.6-14.6); RBC Distribution Width SD 54.9 fl (35.1-43.9); Sodium Level 143 mmol/L (136-145); White Blood Count 6.6 K/mm3 (4.4-11.0)
[2019-03-31 07:05] VITALS: O2SAT 96
--- NOTE | 2019-03-31 09:45 | PCM.PN.HOSP ---
Patient Problems: Active and Suspected Problems (Last Reviewed 03/27/19 @ 10:49 by Eunice Walsh PA-C) Change in mental status (Acute) Weight loss of more than 10% body weight (Acute) Severe dehydration (Acute) Subjective: CC follow-up aspiration pneumonia Patient seen she appears much more awake and engaging compared to the prior day. Patient did remain afebrile during the night. Patient appears medically stable for discharge however scheduled to have home health on 04/01/2019 for education and teaching regarding tube feeding. More so patient will need her oral medication except for Zonegran(cannot be crushed) switched from p.o. to liquid for GT use. Family pharmacy closed on 03/31/2019. Family requested to stay an additional day in view of above logistics reason. Objective: GENERAL: Noncommunicative HEENT: Atraumatic; EYES; Anicteric, Normal Conjunctiva NECK; supple, normal thyroid, RESPIRATORY: Diminished to auscultation CARDIOVASCULAR: Regular S1 S2, GI: soft, non-tender, normoactive bowel sounds, : No Renal angle tenderness; EXTREMITIES: No edema, no clubbing, MUSCULOSKELETAL:muscle waisting NEURO: easily arousable SKIN: No Rash PSYCH; significantly flat Vitals/I&O's: Vital Signs Temp Pulse Resp BP Pulse Ox 98.4 F 79 18 103/71 96 03/31/19 05:17 03/31/19 05:17 03/31/19 05:17 03/31/19 05:17 03/31/19 07:05 Oxygen Delivery Method Room Air Weight: 43.5 kg Body Mass Index (BMI) 16.5 Intake and Output for Last 24 Hours 03/29/19 03/30/19 03/31/19 23:59 23:59 23:59 Intake Total 3866.75 / 3866.75 4265.25 / 4265.25 1936.75 / 1936.75 Output Total 2700 / 2700 600 / 600 Balance 3866.75 / 3866.75 1565.25 / 1565.25 1336.75 / 1336.75 Microbiology Past 72 Hours 03/28/19 01:36 Blood Culture (Wb) - Anticubital Right Blood Culture - Preliminary No growth in 48 hours. 03/28/19 01:29 Blood Culture (Wb) - Anticubital Right Blood Culture - Preliminary No growth in 48 hours. 03/28/19 01:55 Urine, Catheterized Urine Culture - Final Culture exhibits no growth. 03/28/19 05:35 Mucosa - Nasopharyngeal Respiratory Panel (PCR) - Final Laboratory Results 03/31/19 05:44: WBC 6.6, RBC 3.30 L, Hgb 10.3 L, Hct 31.4 L, MCV 95.2, MCH 31.2, MCHC 32.8, RDW Std Deviation 54.9 H, RDW Coeff of Narendra 15.8 H, Plt Count 85 L, MPV 11.0, Immature Gran % (Auto) 0.600, Neut % (Auto) 41.6 L, Lymph % (Auto) 40.9, [place] % (Auto) 14.7 H, Eos % (Auto) 1.7, Baso % (Auto) 0.5, Absolute Neuts (auto) 2.8, Absolute Lymphs (auto) 2.71, Nucleated RBC % 0 03/31/19 05:44: Sodium 143, Potassium 3.7, Chloride 116 H, Carbon Dioxide 22.0, Anion Gap 5, BUN 20 H, Creatinine 0.54 L, Estim Creat Clear Calc 108.41, Est GFR (MDRD) Af Amer 174, Est GFR (MDRD) Non-Af 144, BUN/Creatinine Ratio 37.0 H, Glucose 77, Calcium 7.3 L Current Medications Acetaminophen (Tylenol) 650 mg PO Q6H PRN PRN PRN Reason: Non-cardiac pain (mod-severe) Last Admin: 03/30/19 14:35 Dose: 650 mg Documented by: Acetaminophen (Tylenol) 650 mg RECTAL Q4H PRN PRN PRN Reason: FEVER, t>101F, Mild pain Last Admin: 03/27/19 21:05 Dose: 650 mg Documented by: Albuterol Sulfate (Ventolin Aerosols) 2.5 mg INHALATION Q2H PRN PRN PRN Reason: dyspnea, wheezing Last Admin: 03/28/19 23:38 Dose: 2.5 mg Documented by: Bacitracin (Bacitracin Ointment) 1 applic TOPICAL DAILY ERWIN; Protocol Last Admin: 03/30/19 09:32 Dose: 1 applicatio Documented by: Clonazepam (Klonopin) 0.5 mg PO X1 PRN PRN Reason: SEIZURE Dextrose (D50w Syringe) 0 gm IV X1 PRN; Protocol PRN Reason: Hypoglycemia Last Admin: 03/26/19 21:24 Dose: 25 gm Documented by: Enteral Nutritional Formula (Jevity 1.5) 240 ml GT 5X/DAY [facility] Last Admin: 03/31/19 06:07 Dose: 240 ml Documented by: Glucagon () 1 mg IM .X1 PRN PRN Reason: Hypoglycemia Guaifenesin (Robitussin Dm) 10 ml PO Q6H PRN PRN PRN Reason: COUGH Hydralazine HCl (Apresoline Iv) 10 mg IV Q4H PRN PRN PRN Reason: SBP > 160 Sodium Chloride () 250 mls @ 15 mls/hr IV .[id number] PRN PRN Reason: SALINE FLUSH Last Infusion: 03/31/19 06:05 Dose: 0 mls/hr Documented by: Dextrose/Sodium Chloride (Dextrose 5%/0.9% Nacl) 1,000 mls @ 100 mls/hr IV .Q10H [facility] Last Admin: 03/31/19 06:00 Dose: 100 mls/hr Documented by: Piperacillin Sod/Tazobactam (Sod 3.375 gm/ Sodium Chloride) 50 mls @ 12.5 mls/hr IV Q8 [facility] Last Admin: 03/31/19 06:05 Dose: 12.5 mls/hr Documented by: Levetiracetam (Keppra Oral Solution) 500 mg GT BID [facility] Last Admin: 03/30/19 22:33 Dose: 500 mg Documented by: Lorazepam (Ativan) 2 mg IV X1 PRN PRN Reason: SEIZURES Morphine Sulfate () 2 mg IV Q4H PRN PRN PRN Reason: Pain Score 1-10/10 Last Admin: 03/28/19 14:47 Dose: 2 mg Documented by: Multivitamins/Minerals (Multivitamin With Minerals) 1 tablet PO DAILY@0800 [facility] Last Admin: 03/30/19 08:58 Dose: 1 tablet Documented by: Ondansetron HCl (Zofran) 4 mg IV Q8H PRN PRN PRN Reason: NAUSEA/VOMITING Sodium Chloride () 5 - 15 ml IV UD PRN PRN Reason: SALINE FLUSH Last Admin: 03/31/19 06:05 Dose: 10 ml Documented by: Valproic Acid (Depakene) 750 mg GT Q6 [facility] Last Admin: 03/31/19 06:08 Dose: 750 mg Documented by: Zonisamide (Zonegran) 200 mg PO BID [facility] Last Admin: 03/30/19 22:56 Dose: 200 mg Documented by: Medical Necessity - Tobacco Use Smoking Status: Never smoker Tobacco Use: Non-smoker Assessment/Plan All Active Problems (Last Reviewed 03/27/19 @ 10:49 by Eunice Walsh PA-C) Change in mental status (Acute) Weight loss of more than 10% body weight (Acute) Severe dehydration (Acute) Patient is a 28-year-old lady with past medical history single for seizure disorder, moderate MRDD admitted with failure to thrive. Patient apparently lost over 15 pounds in less than a month. BMI on admission was 16.5. 1. Aspiration pneumonia. ~Patient did develop fever and tachypnea following her procedure. Subsequent imaging studies demonstrated left lower lobe airspace consolidation and possible right basilar airspace disease. Her WBC count also did worsen. Patient was subsequently placed on supplemental oxygen and broad-spectrum antibiotic therapy with IV Zosyn after cultures obtained. ~03/29/2019: Patient continues to experience fever WBC count is however trending down. ~03/30/2019 patient seen WBC count continues to trend down still experiencing low-grade fevers ~03/31/2019. Patient did remain afebrile however has a wet cough 2. Adult failure to thrive ~patient has been admitted to regular nursing floor for subsequent evaluation. In view of patient's severe cachexia and malnutrition consult was placed to general surgery to have a PEG tube placed ~PEG tube was placed on 03/27/2019 ~03/29/2019: Tube feeding was started the day prior and has tolerated well so far 3. Severe protein calorie malnutrition as evidenced by significant weight loss, muscle wasting low BMI. Consult was placed to dietitian as well as general surgery patient is scheduled to undergo PEG tube placement on 03/27/2019 ~PEG tube was placed on 03/27/2019 4. Seizure disorder ~patient placed on a seizure precautions ~Continued with Keppra ~Zonisamide and on 03/29/2019 after getting the okay from speech therapy for patient to swallow pills 5. Moderate MRDD ~supportive care 6. Thrombocytopenia present on admission; remained fairly stable 7. DVT prophylaxis ~bilateral SCDs Active Medications Acetaminophen (Tylenol) 650 mg PO Q6H PRN PRN PRN Reason: Non-cardiac pain (mod-severe) Acetaminophen (Tylenol) 650 mg RECTAL Q4H PRN PRN PRN Reason: FEVER, t>101F, Mild pain Last Admin: 03/27/19 21:05 Dose: 650 mg Documented by: Albuterol Sulfate (Ventolin Aerosols) 2.5 mg INHALATION Q2H PRN PRN PRN Reason: dyspnea, wheezing Last Admin: 03/28/19 23:38 Dose: 2.5 mg Documented by: Bacitracin (Bacitracin Ointment) 1 applic TOPICAL DAILY ERWIN; Protocol Last Admin: 03/30/19 09:32 Dose: 1 applicatio Documented by: Clonazepam (Klonopin) 0.5 mg PO X1 PRN PRN Reason: SEIZURE Dextrose (D50w Syringe) 0 gm IV X1 PRN; Protocol PRN Reason: Hypoglycemia Last Admin: 03/26/19 21:24 Dose: 25 gm Documented by: Enteral Nutritional Formula (Jevity 1.5) 240 ml GT 5X/DAY [facility] Last Admin: 03/30/19 06:17 Dose: 240 ml Documented by: Glucagon () 1 mg IM .X1 PRN PRN Reason: Hypoglycemia Guaifenesin (Robitussin Dm) 10 ml PO Q6H PRN PRN PRN Reason: COUGH Hydralazine HCl (Apresoline Iv) 10 mg IV Q4H PRN PRN PRN Reason: SBP > 160 Sodium Chloride () 250 mls @ 15 mls/hr IV .[id number] PRN PRN Reason: SALINE FLUSH Last Infusion: 03/30/19 06:18 Dose: 0 mls/hr Documented by: Dextrose/Sodium Chloride (Dextrose 5%/0.9% Nacl) 1,000 mls @ 100 mls/hr IV .Q10H [facility] Last Admin: 03/30/19 09:28 Dose: 100 mls/hr Documented by: Piperacillin Sod/Tazobactam (Sod 3.375 gm/ Sodium Chloride) 50 mls @ 12.5 mls/hr IV Q8 [facility] Last Admin: 03/30/19 06:15 Dose: 12.5 mls/hr Documented by: Levetiracetam (Keppra Oral Solution) 500 mg GT BID [facility] Lorazepam (Ativan) 2 mg IV X1 PRN PRN Reason: SEIZURES Morphine Sulfate () 2 mg IV Q4H PRN PRN PRN Reason: Pain Score -03/28 Last Admin: 03/28/19 14:47 Dose: 2 mg Documented by: Multivitamins/Minerals (Multivitamin With Minerals) 1 tablet PO DAILY@0800 [facility] Last Admin: 03/30/19 08:58 Dose: 1 tablet Documented by: Ondansetron HCl (Zofran) 4 mg IV Q8H PRN PRN PRN Reason: NAUSEA/VOMITING Sodium Chloride () 5 - 15 ml IV UD PRN PRN Reason: SALINE FLUSH Last Admin: 03/28/19 14:47 Dose: 10 ml Documented by: Valproic Acid (Depakene) 750 mg GT Q6 [facility] Last Admin: 03/30/19 06:16 Dose: 750 mg Documented by: Zonisamide (Zonegran) 200 mg PO BID [facility] Last Admin: 03/30/19 09:11 Dose: 200 mg Documented by: Code Visit Inpatient E&M: 85944 Subs Hosp L2
[2019-03-31] MEDS: BACITRACIN 15 GM Tube 1 APPLIC TOPICAL (11:22)
[2019-03-31] MEDS: Zonisamide 50 MG Capsule 200 MG PO (11:23)
[2019-03-31] MEDS: Multivitamins,Ther W-Minerals Tablet 1 TABLET PO (11:23)
[2019-03-31] MEDS: levETIRAcetam Oral Solution 500 MG/5 ML GT (11:24)
--- NOTE | 2019-03-31 13:14 | DCINST_ITS ---
- Discharge Diagnoses Current Active Problems: Current Active and Chronic Problems (Last Reviewed 03/27/19 @ 10:49 by Eunice Walsh PA-C) Change in mental status (Acute) Weight loss of more than 10% body weight (Acute) Severe dehydration (Acute) History of seizure disorder (Chronic) Mental retardation, idiopathic moderate (Chronic) You will use the following diet at home:: Other - via Tube feed Allergies/Adverse Reactions: Allergies No Known Allergies Allergy (Unverified 03/26/19 11:23) Medications to take at Discharge Clonazepam 0.5 mg PO UD 03/26/19 Multivitamin with Iron [Daily Dario with Iron] 1 tab PO DAILY 03/26/19 Zonisamide [Zonegran] 200 mg PO BID 03/26/19 Amox/Clav 600mg/5ml Suspension [Augmentin ES-600/5ml Suspension] 5 ml PO Q12H 7 Days #70 ml 03/31/19 Guaifenesin Dm [Robitussin Dm] 10 ml PO Q6H PRN PRN #300 ml 03/31/19 Valproate Sodium [Depakene] 750 mg GT Q6 30 Days #1800 ml 03/31/19 levETIRAcetam oral solution [Keppra Solution] 500 mg GT BID 30 Days #300 ml 03/31/19 The following prescriptions were given: Amox/Clav 600mg/5ml Suspension [Augmentin ES-600/5ml Suspension] 5 ml PO Q12H 7 Days #70 ml Transmission Status: Pending to [facility] Valproate Sodium [Depakene] 750 mg GT Q6 30 Days #1800 ml Transmission Status: Pending to [facility] levETIRAcetam oral solution [Keppra Solution] 500 mg GT BID 30 Days #300 ml Transmission Status: Pending to [facility] Guaifenesin Dm [Robitussin Dm] 10 ml PO Q6H PRN PRN #300 ml PRN Reason: COUGH Transmission Status: Pending to [facility] Primary Care Physician: Zacarias Paz DO [Primary Care Provider] - Please follow up with your Primary Care Physician in: in 3-5 days Test Results: Test results from this visit will be discussed in further detail at your follow- up appointment, if applicable. Proposed Discharge Date: 03/31/19
--- NOTE | 2019-03-31 13:18 | PCM.DC.SUM ---
Discharge Date and Diagnosis - Problem List Patient Problems: Active and Suspected Problems (Last Reviewed 03/27/19 @ 10:49 by Eunice Walsh PA-C) Change in mental status (Acute) Weight loss of more than 10% body weight (Acute) Severe dehydration (Acute) Date of Admission: 03/26/19 Date of Discharge: 03/31/19 - Primary Discharge Diagnosis Active and Suspected Problems (Last Reviewed 03/27/19 @ 10:49 by Eunice Walsh PA-C) Change in mental status (Acute) Weight loss of more than 10% body weight (Acute) Severe dehydration (Acute) - Secondary Discharge Diagnosis Chronic Problems (Last Reviewed 03/27/19 @ 10:49 by Eunice Walsh PA-C) History of seizure disorder (Chronic) Mental retardation, idiopathic moderate (Chronic) Chronic kidney disease (Chronic) Scoliosis (Chronic) Seizures (Chronic) Hospital Course and Treatment Imaging Results: Clinical Impression(s) from Imaging Studies Brain CT 03/26/19 15:22 IMPRESSION: Right basal ganglia increased density with hemorrhage versus early calcification. There is no mass effect or shift of midline structures. Congenital anomaly suggested. MRI recommended for further evaluation. Electronically Signed: Gerber Flores MD at 15:51 EDT , Service support , ADDENDUM: 03/26/19 1601 IMPRESSION: Right basal ganglia increased density with hemorrhage versus early calcification. There is no mass effect or shift of midline structures. Congenital anomaly suggested. MRI recommended for further evaluation. N.B. : The above information has been verbally conveyed by Gerber Flores MD to Dewayne Rodriguez MD, on 03/26/2019 15:57:49 (ET). Electronically Signed: Gerber Flores MD at 15:51 EDT , Service support , ADDENDUM: 03/26/19 1605 ADDENDUM: 03/26/19 1605 Brain MRI 03/26/19 15:59 IMPRESSION: Sagittal T1 shortening right caudate head of uncertain significance. No evidence of magnetic susceptibility to suggest hemorrhage at this time. Follow-up postcontrast image recommended. Electronically Signed: David Melgoza MD at 19:23 EDT , Service support , Chest X-Ray 03/27/19 05:55 IMPRESSION: No acute cardiopulmonary disease. Electronically Signed: Gerber Flores MD at 13:13 EDT , Service support , Chest X-Ray 03/28/19 00:59 IMPRESSION: Left lower lobe airspace consolidation and postobstructive atelectasis and possible right basilar airspace disease. Electronically Signed: Genoveva Mora MD at 3:27 EDT , Service support , Summary of Care Provided: Patient is a 28-year-old lady with past medical history single for seizure disorder, moderate MRDD admitted with failure to thrive. Patient apparently lost over 15 pounds in less than a month. BMI on admission was 16.5. 1. Aspiration pneumonia. This did occur following patient PEG tube placement managed with Zosyn discharged home on Augmentin 2. Adult failure to thrive admitted to the regular nursing floor PEG tube was placed on 03/27/2019. Patient did tolerate tube feeding following the insertion of the PEG tube 3. Severe protein calorie malnutrition as evidenced by significant weight loss, muscle wasting low BMI. Underwent PEG tube placement as stated above 4. Seizure disorder continue with patient antiseizure medications. Prescription was written for the liquid form except for Zonisamide which was left as previously prescribed since it could not be crushed. Patient is scheduled to follow-up with her neurologist at [facility] for alternative medication if indicated 5. Moderate MRDD ~supportive care 6. Thrombocytopenia present on admission; remained fairly stable 7. DVT prophylaxis ~bilateral SCDs Patient Problems: Active and Suspected Problems (Last Reviewed 03/27/19 @ 10:49 by Eunice Walsh PA-C) Change in mental status (Acute) Weight loss of more than 10% body weight (Acute) Severe dehydration (Acute) Objective: GENERAL: Noncommunicative HEENT: Atraumatic; EYES; Anicteric, Normal Conjunctiva NECK; supple, normal thyroid, RESPIRATORY: Diminished to auscultation CARDIOVASCULAR: Regular S1 S2, GI: soft, non-tender, normoactive bowel sounds, : No Renal angle tenderness; EXTREMITIES: No edema, no clubbing, MUSCULOSKELETAL:muscle waisting NEURO: easily arousable SKIN: No Rash PSYCH; significantly flat - Physical Exam Vital Signs Temp Pulse Resp BP Pulse Ox 98.4 F 79 18 103/71 96 03/31/19 05:17 03/31/19 05:17 03/31/19 05:17 03/31/19 05:17 03/31/19 07:05 Oxygen Delivery Method Room Air Weight: 43.5 kg Body Mass Index (BMI) 16.5 Intake and Output for Last 24 Hours 03/29/19 03/30/19 03/31/19 23:59 23:59 23:59 Intake Total 3866.75 / 3866.75 4265.25 / 4265.25 1986.75 / 1986.75 Output Total 2700 / 2700 600 / 600 Balance 3866.75 / 3866.75 1565.25 / 1565.25 1386.75 / 1386.75 Microbiology Past 72 Hours 03/28/19 01:36 Blood Culture - Preliminary Blood Culture (Wb) - Anticubital Right No growth in 48 hours. 03/28/19 01:29 Blood Culture - Preliminary Blood Culture (Wb) - Anticubital Right No growth in 48 hours. 03/28/19 01:55 Urine Culture - Final Urine, Catheterized Culture exhibits no growth. 03/28/19 05:35 Respiratory Panel (PCR) - Final Mucosa - Nasopharyngeal Laboratory Tests Past 24 Hrs 03/31/19 03/31/19 05:44 05:44 WBC 6.6 RBC 3.30 L Hgb 10.3 L Hct 31.4 L MCV 95.2 MCH 31.2 MCHC 32.8 RDW Std Deviation 54.9 H RDW Coeff of Narendra 15.8 H Plt Count 85 L MPV 11.0 Immature Gran % (Auto) 0.600 Neut % (Auto) 41.6 L Lymph % (Auto) 40.9 [place] % (Auto) 14.7 H Eos % (Auto) 1.7 Baso % (Auto) 0.5 Absolute Neuts (auto) 2.8 Absolute Lymphs (auto) 2.71 Nucleated RBC % 0 Sodium 143 Potassium 3.7 Chloride 116 H Carbon Dioxide 22.0 Anion Gap 5 BUN 20 H Creatinine 0.54 L Estim Creat Clear Calc 108.41 Est GFR (MDRD) Af Amer 174 Est GFR (MDRD) Non-Af 144 BUN/Creatinine Ratio 37.0 H Glucose 77 Calcium 7.3 L Discharge Diet: - - VIA TUBE FEED Home Medications: Medications to take at Discharge Clonazepam 0.5 mg PO UD 03/26/19 Multivitamin with Iron [Daily Dario with Iron] 1 tab PO DAILY 03/26/19 Zonisamide [Zonegran] 200 mg PO BID 03/26/19 Amox/Clav 600mg/5ml Suspension [Augmentin ES-600/5ml Suspension] 5 ml PO Q12H 7 Days #70 ml 03/31/19 Guaifenesin Dm [Robitussin Dm] 10 ml PO Q6H PRN PRN #300 ml 03/31/19 Valproate Sodium [Depakene] 750 mg GT Q6 30 Days #1800 ml 03/31/19 levETIRAcetam oral solution [Keppra Solution] 500 mg GT BID 30 Days #300 ml 03/31/19 Following Prescrptions Were Given to Patient: Amox/Clav 600mg/5ml Suspension [Augmentin ES-600/5ml Suspension] 5 ml PO Q12H 7 Days #70 ml Transmission Status: [facility] Valproate Sodium [Depakene] 750 mg GT Q6 30 Days #1800 ml Transmission Status: [facility] levETIRAcetam oral solution [Keppra Solution] 500 mg GT BID 30 Days #300 ml Transmission Status: Pending to [facility] Guaifenesin Dm [Robitussin Dm] 10 ml PO Q6H PRN PRN #300 ml PRN Reason: COUGH Transmission Status: Pending to [facility] Primary Care Physician: Zacarias Paz DO [Primary Care Provider] - Please follow up with your Primary Care Physician in: in 3-5 days Disposition: Home with Home Health Minutes spent on discharge:: 45 Patient Condition:: Stable Medical Necessity - Tobacco Use Smoking Status: Never smoker Tobacco Use: Non-smoker Meaningful Use Info Meaningful Use Diagnoses (Choose all that apply): None applicable Code Visit Inpatient E&M: 75605 Disch Hosp
[2019-03-31] MEDS: Acetaminophen 650 MG/20 ML UDC GT (16:22)
== END 2019-03-31 18:40 | disposition home or self-care (01) | DRG 421 ==
LOC: ED 15:37 → MS3 16:54
PROVIDERS: Anesthesiology; Internal Medicine; Surgery; Admitting Provider Family Medicine; Emergency Provider Emergency Medicine; Family Provider Family Medicine; PCP Family Medicine; Visit Provider Internal Medicine
PROC: 0DJ08ZZ Inspection of Upper Intestinal Tract, Via Natural or Artificial Opening Endoscopic (ICD-10-PCS; CPT 43235; principal; 2019-03-27 12:25)
DX: R62.7 Adult failure to thrive (principal); Z68.1 Body mass index [BMI] 19.9 or less, adult; G40.909 Epilepsy, unspecified, not intractable, without status epilepticus; E87.5 Hyperkalemia; E43 Unspecified severe protein-calorie malnutrition; N18.3 Chronic kidney disease, stage 3 (moderate); F71 Moderate intellectual disabilities; E86.0 Dehydration; J69.0 Pneumonitis due to inhalation of food and vomit; R64 Cachexia; D69.6 Thrombocytopenia, unspecified
CPT/HCPCS: 36415; 70450; 70551; 71045; 71046; 80048; 80053; 80164; 81001; 82962; 83605; 83735; 84100; 85025; 85027; 85610; 85730; 87040; 87086; 87449; 87633; 87641; 92526; 92610; 94640; 97110; 97162; 97166; 97802; 99285; J7030; J7050; P9612; A4216; J2405

== ENCOUNTER → 2019-04-24 14:46 | Outpatient (CLI) | payer MEDICAID, SELFPAY ==
[2019-04-03 13:47] VITALS: BMI 16.5
[2019-04-24 15:42] LABS: Absolute Lymphocyte Count 2.14 X10^3/uL (0.83-4.51); Absolute Neutrophil Count 2.6 X10^3/uL (2.0-7.7); Basophil# 0.03 X10^3/uL; Basophil% 0.5 % (0-1); Eosinophils% 1.7 % (0-5); Hematocrit 37.5 % (37-47); Hemoglobin 12.1 g/dL (12.0-15.0); Lymphocyte # 2.14 X10^3/ul (4.0); Lymphocyte % 36.1 % (19-41); Mean Corp Hgb Conc 32.3 g/dL (32-36); Mean Corpuscular Volume 102.2 fL (81-99); Mean Platelet Vol. 12.7 fl (6.2-12.0); Monocyte# 1.03 X10^3/uL; Monocyte% 17.4 % (0-10); NRBC Flagged by Analyzer 0 % (0-5); Neutrophil # 2.61 X10^3/uL (2.7-7.7); POSITIVE COUNT YES; Platelet Count 84 K/mm3 (150-450); RBC Distribution Width CV 17.2 % (11.6-14.6); RBC Distribution Width SD 64.6 fl (35.1-43.9); Red Blood Count 3.67 M/mm3 (4.2-5.4); White Blood Count 5.9 K/mm3 (4.4-11.0)
[2019-04-24 15:45] LABS: Differential Indicated SCAN CRITERIA MET
[2019-04-24 16:18] LABS: Differential Comment SCANNED
[2019-04-24 16:22] LABS: Anion Gap 5 (5-15); BUN 35 mg/dL (7-18); BUN/Creat Ratio 46.9 RATIO (10-20); Calcium,Total 8.9 mg/dL (8.5-10.1); Chloride 102 mmol/L (98-107); Creatinine, Serum 0.75 mg/dL (0.55-1.02); EST Glomerular Filtration Rate 99 mL/min (>60); Est Glom Filt Rate - Afr Amer 120 mL/min (>60); Glucose 84 mg/dL (74-106); Potassium 4.9 mmol/L (3.5-5.1); Sodium Level 136 mmol/L (136-145)
[2019-04-24 16:26] LABS: Valproic Acid (Depakene) Level 135 ug/mL (50-100)
== END ==
PROVIDERS: Family Provider Family Medicine; PCP Family Medicine; Referring Provider Family Medicine; Visit Provider Family Medicine
DX: Z86.69 Personal history of other diseases of the nervous system and sense organs (principal); R41.82 Altered mental status, unspecified; R53.83 Other fatigue
CPT/HCPCS: 80048; 80164; 85025

== ENCOUNTER → 2019-05-02 13:39 | Outpatient (CLI) | payer MEDICAID, SELFPAY ==
[2019-04-03 13:47] VITALS: BMI 16.5
[2019-05-02 14:15] LABS: Vitamin B12 1148 pg/mL (211-911)
== END ==
PROVIDERS: Family Provider Family Medicine; PCP Family Medicine; Referring Provider Family Medicine; Visit Provider Family Medicine
DX: D64.9 Anemia, unspecified (principal)
CPT/HCPCS: 82607

== ENCOUNTER → 2019-05-23 16:26 | Outpatient (CLI) | payer MEDICAID, SELFPAY ==
[2019-04-03 13:47] VITALS: BMI 16.5
[2019-05-23 16:51] LABS: Valproic Acid (Depakene) Level 106 ug/mL (50-100)
[2019-05-23 16:52] LABS: ALB/GLOB Ratio 0.9 RATIO (0.9-2.4); AST(SGOT) 20 U/L (15-37); Alanine Aminotransfer ALT/SGPT 16 U/L (13-56); Alkaline Phosphatase 74 U/L (45-117); Anion Gap 4 (5-15); BUN 37 mg/dL (7-18); BUN/Creat Ratio 41.2 RATIO (10-20); Calcium,Total 8.4 mg/dL (8.5-10.1); Chloride 106 mmol/L (98-107); EST Glomerular Filtration Rate 80 mL/min (>60); Est Glom Filt Rate - Afr Amer 97 mL/min (>60); Globulin 3.4 g/dL (2.2-4.2); Glucose 95 mg/dL (74-106); Potassium 5.3 mmol/L (3.5-5.1); Protein, Total 6.4 g/dL (6.4-8.2); Sodium Level 137 mmol/L (136-145)
== END ==
PROVIDERS: Family Provider Family Medicine; PCP Family Medicine
DX: G40.219 Localization-related (focal) (partial) symptomatic epilepsy and epileptic syndromes with complex partial seizures, intractable, without status epilepticus (principal)
CPT/HCPCS: 80053; 80164

== ENCOUNTER → 2019-07-17 | Outpatient (CLI) | payer MEDICAID, SELFPAY ==
[2019-05-29 13:53] VITALS: BMI 19.7
[2019-07-17 11:15] LABS: ALB/GLOB Ratio 0.9 RATIO (0.9-2.4); AST(SGOT) 18 U/L (15-37); Alanine Aminotransfer ALT/SGPT 22 U/L (13-56); Albumin, Serum 3.3 g/dL (3.2-5.0); Alkaline Phosphatase 103 U/L (45-117); Anion Gap 4 (5-15); BUN 37 mg/dL (7-18); BUN/Creat Ratio 40.2 RATIO (10-20); Calcium,Total 8.8 mg/dL (8.5-10.1); Chloride 107 mmol/L (98-107); Creatinine, Serum 0.92 mg/dL (0.55-1.02); EST Glomerular Filtration Rate 78 mL/min (>60); Est Glom Filt Rate - Afr Amer 94 mL/min (>60); Globulin 3.8 g/dL (2.2-4.2); Glucose 87 mg/dL (74-106); Protein, Total 7.1 g/dL (6.4-8.2); Sodium Level 138 mmol/L (136-145)
== END | disposition home or self-care (01) ==
PROVIDERS: PCP Family Medicine
DX: G40.219 Localization-related (focal) (partial) symptomatic epilepsy and epileptic syndromes with complex partial seizures, intractable, without status epilepticus (principal)
CPT/HCPCS: 80053; 82140

== ENCOUNTER → 2019-08-27 16:23 | Outpatient (CLI) | payer MEDICAID, SELFPAY ==
[2019-08-27 15:50] VITALS: BMI 19.5
[2019-08-27 16:58] LABS: Absolute Neutrophil Count 3.1 X10^3/uL (2.0-7.7); Basophil# 0.04 X10^3/uL; Basophil% 0.6 % (0-1); Eosinophil# 0.15 X10^3/uL; Eosinophils% 2.2 % (0-5); Hematocrit 37.4 % (37-47); Hemoglobin 11.9 g/dL (12.0-15.0); Mean Corp Hgb Conc 31.8 g/dL (32-36); Mean Corpuscular Hgb 32.2 pg (27.0-32.0); Mean Corpuscular Volume 101.4 fL (81-99); Mean Platelet Vol. 12.5 fl (6.2-12.0); Monocyte# 1.17 X10^3/uL; Monocyte% 17.1 % (0-10); NRBC Flagged by Analyzer 0 % (0-5); Neutrophil # 3.09 X10^3/uL (2.7-7.7); Platelet Count 127 K/mm3 (150-450); RBC Distribution Width CV 12.6 % (11.6-14.6); RBC Distribution Width SD 47.2 fl (35.1-43.9); Red Blood Count 3.69 M/mm3 (4.2-5.4); White Blood Count 6.9 K/mm3 (4.4-11.0)
[2019-08-27 17:27] LABS: ALB/GLOB Ratio 0.8 RATIO (0.9-2.4); AST(SGOT) 13 U/L (15-37); Alanine Aminotransfer ALT/SGPT 18 U/L (13-56); Albumin, Serum 3.3 g/dL (3.2-5.0); Alkaline Phosphatase 86 U/L (45-117); Anion Gap 7 (5-15); BUN 34 mg/dL (7-18); BUN/Creat Ratio 37.3 RATIO (10-20); Calcium,Total 8.4 mg/dL (8.5-10.1); Chloride 106 mmol/L (98-107); Creatinine, Serum 0.91 mg/dL (0.55-1.02); EST Glomerular Filtration Rate 79 mL/min (>60); Est Glom Filt Rate - Afr Amer 95 mL/min (>60); Globulin 4.1 g/dL (2.2-4.2); Glucose 83 mg/dL (74-106); Potassium 4.2 mmol/L (3.5-5.1); Protein, Total 7.4 g/dL (6.4-8.2); Sodium Level 138 mmol/L (136-145); T4 Free Direct 0.83 ng/dL (0.76-1.46); Thyroid Stim Hormone (TSH) 3.94 uIU/mL (0.358-3.74)
== END ==
PROVIDERS: PCP Family Medicine; Referring Provider Internal Medicine; Visit Provider Internal Medicine
DX: R56.9 Unspecified convulsions (principal)
CPT/HCPCS: 80053; 84439; 84443; 85025

== ENCOUNTER 2019-12-26 12:39 | Emergency (ER) | payer MEDICAID, SELFPAY ==
[2019-12-25 11:35] VITALS: BMI 19.7
[2019-12-26 12:41] VITALS: BP 141/80; PULSE 107; RESP 22; TEMP 37.7; O2SAT 99
--- NOTE | 2019-12-26 12:42 | CT_ITS ---
STUDY: CT BRAIN WITHOUT CONTRAST REASON FOR EXAM: Female, 29 years old. SEIZURE RADIATION DOSAGE (If Supplied By Facility): CTDIvol = ( 60.81 ) mGy, DLP = ( 1317.94 ) mGycm TECHNIQUE: Transaxial CT imaging of the brain was performed without administration of intravenous contrast material. Individualized dose optimization techniques were used for this CT. COMPARISON: No relevant priors. FINDINGS: Normal soft tissue structures. Normal calvarium. Normal size ventricles and extra-axial spaces for the patient''s age. Normal white matter tracts of the cerebral hemispheres. There are small punctate calcifications of the bilateral basal ganglia. This is more prominent on the right side. This is unchanged as compared to prior study. The differential diagnostic considerations includes: Fahrs disease, or endocrine disorders (hyperparathyroidism, hypoparathyroidism, pseudohypoparathyroidism). The incidental discovery of basal ganglia calcifications in a patient less than 50 years of age merits investigation. Normal brainstem. Normal cerebellum. There is no intracranial hemorrhage. There are no findings of an acute ischemic infarction. Normal visualized paranasal sinuses. CT/Brain/Head without Contrast IMPRESSION: Stable bilateral calcification of the basal ganglia more prominent on the right side. Electronically Signed: Vitor Gaines, at 14:19 EDT , Service support ,
--- NOTE | 2019-12-26 12:43 | EKG12_ITS ---
Test Reason : DYSRHYTHMIA Blood Pressure : / mmHG Vent. Rate : 155 BPM Atrial Rate : 155 BPM P-R Int : 122 ms QRS Dur : 068 ms QT Int : 258 ms P-R-T Axes : 057 077 016 degrees QTc Int : 414 [address]cardia Nonspecific [address] abnormality Abnormal ECG Confirmed by MASHA ALANIZ, YAYA ([id number]), commissioning editor TIFFANIE BUSTAMANTE ([id number]) on 12/30/2019 8:11:06 AM Referred By: GLORIA Confirmed By:YAYA FLANAGAN MD
[2019-12-26] MEDS: LORazepam 2 MG/ML Syringe 1 MG IV (12:52)
--- NOTE | 2019-12-26 12:53 | ED.DCSUM_ITS ---
History of Present Illness Chief Complaint: Seizure Informant: Patient, Family Onset: Yesterday Context: Gradual Onset Timing: Intermittent Current Severity: Moderate Maximum Severity: Moderate Narrative: The patient is a 29-year-old female with medical history significant for focal epilepsy, developmental delay, and prior PEG tube that presents to the emergency department with recurrent seizures. The patient was actually seen by her physician yesterday. She was having preoperative clearance because she was going to have dental surgery. She had discussed with neurology through [facility] plan to undergo continuous EEG monitoring if the surgery had not helped. Overnight, the patient was having multiple seizures. She was having 6-8 seizures at night. They last about 20 seconds without secondary generalization. She has rhythmic shaking of her right arm, and will have gaze deviation to the left. She then will return to her baseline but have recurrent seizure. This is been going on throughout the morning. Her father at the bedside states that she has been compliant with her medications. There have been no recent changes in her medications. Prior similar symptoms: Yes Recent Illness/Hospitalization: No Past Medical History - Allergies and Home Meds Allergies/Adverse Reactions: Allergies No Known Allergies Allergy (Verified 12/26/19 12:58) Primary Care Physician: Zacarias Paz DO [Primary Care Provider] - Prior records reviewed: Yes Past Medical History: - - MRDD, seizure disorder Surgical History: - - Oral surgery, specifically gum surgery. Smoking Status: Never smoker - Family History Maternal Family History: Family History (Last Reviewed 12/25/19 @ 11:[address] Zacarias Paz DO) Grandfather Diabetes Hypertension Family History: Reports: - - Patient denies any market maternal or paternal family history specifically with no history of heart disease, diabetes or cancer. Patient does have a maternal grandfather with diabetes and hy pertension. Paternal Family History: Family History (Last Reviewed 12/25/19 @ 11:[address] Zacarias Paz DO) Grandfather Diabetes Hypertension Family History: Reports: - - Patient denies any market maternal or paternal family history specifically with no history of heart disease, diabetes or canc er. Patient does have a maternal grandfather with diabetes and hypertension. Review of Systems ROS: Unable to Obtain Physical Exam Vital Signs/Narrative: Vital Signs Temp Pulse Resp BP Pulse Ox 12/26/19 12:41 100 F H 107 H 22 H 141/80 H 99 Inital Vital Signs reviewed: Yes General: Well nourished, No Acute Distress Head: Normocephalic, Atraumatic Eyes: Perrl, EOMI ENT: Moist mucous membranes, No rhinorrhea Neck: Supple, Nontender Cardiovascular: Regular rhythm, No murmurs, Tachycardia Respiratory: No distress, CTA bilaterally, Chest nontender Abdomen: Soft, Nontender, Nondistended, Normal bowel sounds Back: Nontender, Normal Inspection Extremities: Nontender, No edema Skin: Normal color, No rash Neurological: Cranial nerves II-XII grossly intact, Normal Strength, Confused Diagnostic/Tx/Re-eval - Medical Decision Making The patient presents with recurrent partial seizure without secondary generalization. However, she is had multiple recurrent seizures. They last about 20 seconds. They are rhythmic right-sided upper extremity jerking with left gaze deviation. She then will stop seizing and return to baseline. Initially was going to give her Dilantin, but discussed the patient immediately with neurology at [facility]. They do want to hold on antiepileptics for now as these are partial seizures without secondary generalization. They want to get her immediately to the monitoring unit for continuous EEG. The patient was given Ativan and it seemed to control her symptoms much better. Screening labs were obtained and are currently pending. The patient will be transferred immediately to [facility] for recurrent partial seizures. Impression 1. Multiple partial seizures 2. History of epilepsy 3. History of MRDD ED Disposition - Plan for ED Patient: Referrals: Zacarias Paz DO [Primary Care Provider] -
--- NOTE | 2019-12-26 12:58 | ED.RN ---
pt nonverbal, parents at bedside.
[2019-12-26] MEDS: 0.9% Normal Saline 1,000 ML 1000 ML IV ×2 (13:11→14:06)
[2019-12-26 13:14] VITALS: BP 162/96; PULSE 110; RESP 25; O2SAT 99
[2019-12-26 13:15] VITALS: BP 155/93; PULSE 110; RESP 17; O2SAT 96
[2019-12-26 13:43] LABS: CPK Total, Creatine Kinase 103 U/L (26-192)
[2019-12-26 13:45] LABS: ALB/GLOB Ratio 0.7 RATIO (0.9-2.4); AST(SGOT) 13 U/L (15-37); Alanine Aminotransfer ALT/SGPT 17 U/L (13-56); Albumin, Serum 2.7 g/dL (3.2-5.0); Alkaline Phosphatase 75 U/L (45-117); Anion Gap 7 (5-15); BUN 33 mg/dL (7-18); BUN/Creat Ratio 35.7 RATIO (10-20); Calcium,Total 7.8 mg/dL (8.5-10.1); Chloride 108 mmol/L (98-107); Creatinine, Serum 0.92 mg/dL (0.55-1.02); EST Glomerular Filtration Rate 77 mL/min (>60); Est Glom Filt Rate - Afr Amer 93 mL/min (>60); Estimated Creatinine Clearance 7.25 ml/min; Globulin 3.8 g/dL (2.2-4.2); Glucose 99 mg/dL (74-106); Potassium 4.2 mmol/L (3.5-5.1); Protein, Total 6.5 g/dL (6.4-8.2); Sodium Level 139 mmol/L (136-145)
[2019-12-26 13:48] LABS: Lactic Acid 1.7 mmol/L (0.4-1.9)
[2019-12-26 14:08] VITALS: BP 159/96; PULSE 120; RESP 16; O2SAT 99
--- NOTE | 2019-12-26 14:08 | ED.RN ---
pt having seizure. hr elevated to 150.
[2019-12-26 14:24] LABS: Valproic Acid (Depakene) Level 77 ug/mL (50-100)
[2019-12-26 14:44] LABS: Absolute Lymphocyte Count 1.57 X10^3/uL (0.83-4.51); Absolute Neutrophil Count 10.8 X10^3/uL (2.0-7.7); Basophil# 0.03 X10^3/uL; Basophil% 0.2 % (0-1); Eosinophil# 0.02 X10^3/uL; Eosinophils% 0.1 % (0-5); Hematocrit 37.2 % (37-47); Lymphocyte # 1.57 X10^3/ul (4.0); Lymphocyte % 11.4 % (19-41); Mean Corp Hgb Conc 32.3 g/dL (32-36); Mean Corpuscular Hgb 32.3 pg (27.0-32.0); Mean Corpuscular Volume 100.3 fL (81-99); Mean Platelet Vol. 11.9 fl (6.2-12.0); Monocyte# 1.23 X10^3/uL; NRBC Flagged by Analyzer 0 % (0-5); Neutrophil % 78.8 % (47-70); Platelet Count 174 K/mm3 (150-450); RBC Distribution Width CV 13.1 % (11.6-14.6); RBC Distribution Width SD 48.5 fl (35.1-43.9); Red Blood Count 3.71 M/mm3 (4.2-5.4); White Blood Count 13.7 K/mm3 (4.4-11.0)
[2019-12-26 15:00] VITALS: BP 153/91; PULSE 138; RESP 41; O2SAT 99
[2019-12-26 15:35] LABS: Bedside Glucose 127 mg/dL (70-110)
== END 2019-12-26 15:41 | disposition short-term general hospital (02) ==
PROVIDERS: Emergency Provider Emergency Medicine; PCP Family Medicine
DX: G40.109 Localization-related (focal) (partial) symptomatic epilepsy and epileptic syndromes with simple partial seizures, not intractable, without status epilepticus (principal); F79 Unspecified intellectual disabilities; R62.50 Unspecified lack of expected normal physiological development in childhood
CPT/HCPCS: 70450; 80053; 80164; 82550; 82962; 83605; 85025; 93005; 96361; 96374; 99285; J7030

== ENCOUNTER 2020-01-12 02:37 | Inpatient (IN) | payer MEDICAID, SELFPAY ==
[2020-01-12] VITALS (39 sets, daily range): BP systolic 90–111; BP diastolic 53–81; PULSE 90–114; RESP 15–20; TEMP 37.2–38.2; O2SAT 91–100; BMI 22.8
--- NOTE | 2020-01-12 02:51 | PCM.HP.STD ---
Problem List (1) Septic shock Status: Acute (2) Dental abscess Status: Chronic (3) Severe dehydration Status: Acute (4) History of seizure disorder Status: Chronic (5) Mental retardation, idiopathic moderate Status: Chronic (6) Chronic kidney disease Status: Chronic Qualifiers: Chronic kidney disease stage: stage 2 (mild) Qualified Code(s): N18.2 - Chronic kidney disease, stage 2 (mild) (7) Scoliosis Status: Chronic Qualifiers: Scoliosis type: idiopathic Idiopathic scoliosis type: adolescent Spinal region: thoracolumbar Qualified Code(s): M41.125 - Adolescent idiopathic scoliosis, thoracolumbar region (8) Seizures Status: Chronic History of Present Illness Date of Admission: 01/12/20 Chief Complaint: Shortness of breath The patient is a 29 year old F with a significant history of mental retardation who lives at an extended care facility; and seizure disorder who was transferred from outside hospital department ([facility] [place]). Patient presented to outside hospital with shortness of breath. Because of respiratory distress patient was intubated at outside hospital. Since systolic blood pressure was initially in the 60s over 40s at outside hospital, patient received 30 Ml per kilogram bolus which brought her blood pressure to 70s over 40s. Patient was given 20 mcg of epinephrine bolus. Also she was placed on Levophed drip. Reportedly urinalysis was unremarkable although nurse reports that in her report received form outside Hospital patient's urine looked like pus. A Jacobo catheter was placed from outside hospital. Chest x-ray showed right-sided pneumonia. White count was 23,000. Her lactic acid was 1. BUN was elevated at 70. Her creatinine was 1.1. Blood culture was also obtained at the outside hospital ED Reportedly recently admitted at [facility] for seizures. Patient was transferred from outside hospital ED to our hospital because patient's need critical care service. Past Medical History Past Medical History (Chronic Problems): Chronic Problems (Last Reviewed 01/12/20 @ 03:[address] Luis Antonio Adams MD) Dental abscess (Chronic) History of seizure disorder (Chronic) Mental retardation, idiopathic moderate (Chronic) Chronic kidney disease (Chronic) Scoliosis (Chronic) Seizures (Chronic) Medical History: Medical History (Last Reviewed 01/12/20 @ 03:[address] Luis Antonio Adams MD) Chronic kidney disease (Chronic) N18.9 Scoliosis (Chronic) M41.9 Seizures (Chronic) R56.9 Allergies No Known Allergies Allergy (Verified 12/26/19 12:58) Home Medications: Ambulatory Orders Medication Instructions Recorded Multivitamin with Iron [Daily Dario 1 tab GT DAILY 03/26/19 with Iron] clonazepam 0.5 mg disintegrating 0.5 mg GT UD PRN 05/29/19 tablet Wheelchair #1 ea 07/30/19 Skilled home nursing #1 ea 11/28/19 Acetaminophen Liquid [Tylenol 325 mg GT Q8H PRN PRN 01/12/20 Liquid] Calcium 500+D Tablet Chew 1 tab GT DAILY 01/12/20 Ciprofloxacin [Cipro] 1 tab GT BID 01/12/20 Clobazam 10 mg GT BID 01/12/20 Clobazam 20 mg GT QHS 01/12/20 Divalproex Sodium [Depakote ER] 750 mg GT Q8H 01/12/20 Lacosamide Solution [Vimpat 200 mg GT BID 01/12/20 Solution] Lactose-Reduced Food/Fiber 60 ml GT BID 01/12/20 [Isosource 1.5 Santi Tube Feed Lq] Levetiracetam [Keppra] 10 ml GT DAILY 01/12/20 Levetiracetam [Keppra] 15 ml GT QHS 01/12/20 Magnesium Oxide 400 mg GT DAILY 01/12/20 Multivitamin 1 ea GT DAILY 01/12/20 Polyethylene Glycol 3350 [Miralax] 17 gm GT DAILY PRN 01/12/20 Zonisamide 300 mg PO BID 01/12/20 Surgical History: Surgical History (Last Reviewed 01/12/20 @ 03:[address] Luis Antonio Adams MD) History of oral surgery Z98.890 Status post insertion of percutaneous endoscopic gastrostomy (PEG) tube Z93.1 Surgical History: - - Oral surgery, specifically gum surgery. 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 Luis Antonio Adams MD) Grandfather Diabetes Hypertension History Items: - - Patient denies any market maternal or paternal family history specifically with no history of heart disease, diabetes or cancer. Patient does have a maternal grandfather with diabetes and hypertension. Paternal Family History: Family History (Last Reviewed 01/12/20 @ 03:[address] Luis Antonio Adams MD) Grandfather Diabetes Hypertension History Items: - - Patient denies any market maternal or paternal family history specifically with no history of heart disease, diabetes or cancer. Patient does have a maternal grandfather with diabetes and hypertension. Review of Systems Unable to obtain accurate/complete ROS d/t: Intubated and sedated on Mechanical ventilation VTE Information - Inpt Only VTE Present on Admission: No VTE Mechan Device Prophylaxis: None VTE Pharm Prophylaxis ordered?: Yes Patient Problems: Active and Suspected Problems (Last Reviewed 01/12/20 @ 03:[address] Luis Antonio Adams MD) Septic shock (Acute) - Physical Exam Vitals/I&O's: Vital Signs Pulse Resp Pulse Ox 93 16 100 01/12/20 02:15 01/12/20 02:15 01/12/20 02:15 Weight: 58.5 kg Body Mass Index (BMI) 22.8 General: - - Intubated and sedated on mechanical ventilation. HEENT: Atraumatic, Normocephalic Neck: No Nodes, Trachea Midline Lungs: No wheeze, Rhonchi Cardiovascular: Regular rate, Normal S1, Normal S2, No murmurs Abdomen: Bowel Sounds Present, Soft Extremities: No edema, Capillary Refill Less than 3 Seconds Skin: No rashes, No breakdown Musculoskeletal: No Muscle Wasting Neurological: - - Intubated and sedated on Mechanical ventilation Psych/Mental Status: - - Intubated and sedated on Mechanical ventilation Current Medications Sodium Chloride () 250 mls @ 15 mls/hr IV .[id number] PRN PRN Reason: Saline Flush Norepinephrine Bitartrate 8 mg (/ Sodium Chloride) 250 mls @ 9.375 mls/hr CONT INF .[id number] ERWIN; Protocol Vancomycin HCl () 500 mg in 100 mls @ 100 mls/hr IV X1 ONE Stop: 01/12/20 03:21 Fentanyl Citrate 1,000 mcg/ (Sodium Chloride) 100 mls @ 2.5 mls/hr CONT INF .Q40H ERWIN; Protocol Sodium Chloride () 10 - 40 ml IV UD PRN PRN Reason: SALINE FLUSH Assessment/Plan All Active Problems (Last Reviewed 01/12/20 @ 03:[address] Luis Antonio Adams MD) Septic shock (Acute) Severe dehydration (Acute) The patient is a 29 year old F with a significant history of mental retardation who lives at an extended care facility; and seizure disorder who was transferred from outside hospital department ([facility]) right-sided pneumonia and septic shock. Septic shock secondary to right-sided pneumonia Probable gram-positive or gram-negative and at risk for multidrug resistance pneumonia as patient lives at an extended care facility. Tachycardia with heart rate in 100s at outside hospital. Initial blood pressure of 60/40 improved to 70/40 with 30 MS per kilogram normal saline bolus and started on Levophed at outside Hospital. Will continue Levophed. Titrate Levophed to keep map of at least 65. Lactic acid: 1.1 at outside hospital. Repeat lactic acid here. Blood culture ?2 at outside hospital; follow. Chest x-ray: X-ray showed right-sided infiltrates consistent with pneumonia. Actual chest x-ray from [facility] was reviewed. It was consistent with right middle lobe and right lower lobe pneumonia. Respiratory Gram stain and culture ordered COVID screen by bronchial wash. Antibiotics: Received 1000 mg of vancomycin out of 1,500 mg planned by outside hospital ED. Vancomycin 500 mg IV x 1 ordered to make up loading dose. Then Pharmacy to dose vancomycin. Received Zosyn at outside hospital ED. Zosyn continued.. IV hydration: Status po 30 ML per kilogram bolus. Continue patient on normal saline 75 mL's per hour. Water flushes 240 mLs every 6 hours by G-tube. Albuterol as needed Legionella antigen screen and Strep antigen ordered On vent placed at outside hospital; continued GI prophylaxis with Pepcid. Emergent department doctor at outside hospital discussed case with librarian head. Smelter Liner consult. Epilepsy Continue home anti-epileptic drugs MARYLU/severe dehydration. Reportedly her BUN was 70 at outside hospital; Creatinine was 1.1. . Reportedly her BUN about a day before presentation at [facility] system was 57. Reportedly creatinine day before presentation was and was 0.8. IV hydration Avoid nephrotoxic's. DVT Subcutaneous Lovenox. Inpatient E&M: 48448 In Hosp L3
[2020-01-12 03:04] LABS: Absolute Lymphocyte Count 1.99 X10^3/uL (0.83-4.51); Basophil# 0.05 X10^3/uL; Basophil% 0.2 % (0-1); Hematocrit 30.6 % (37-47); Hemoglobin 9.7 g/dL (12.0-15.0); Lymphocyte # 1.99 X10^3/ul (4.0); Lymphocyte % 8.3 % (19-41); Mean Corp Hgb Conc 31.7 g/dL (32-36); Mean Corpuscular Hgb 32.7 pg (27.0-32.0); Mean Platelet Vol. 10.8 fl (6.2-12.0); Monocyte# 3.77 X10^3/uL; Monocyte% 15.7 % (0-10); NRBC Flagged by Analyzer 0 % (0-5); Neutrophil # 18.04 X10^3/uL (2.7-7.7); Neutrophil % 75.1 % (47-70); POSITIVE DIFFERENTIAL YES; POSITIVE MORPHOLOGY YES; Platelet Count 142 K/mm3 (150-450); RBC Distribution Width CV 13.2 % (11.6-14.6); RBC Distribution Width SD 50.1 fl (35.1-43.9); Red Blood Count 2.97 M/mm3 (4.2-5.4)
[2020-01-12 03:06] LABS: Differential Indicated SCAN CRITERIA MET
[2020-01-12] MEDS: Vancomycin IV 500 MG/100 ML BAG 100 MG IV (03:12)
[2020-01-12 03:18] LABS: Anion Gap 6 (5-15); BUN 55 mg/dL (7-18); BUN/Creat Ratio 69.2 RATIO (10-20); Calcium,Total 8.3 mg/dL (8.5-10.1); Chloride 111 mmol/L (98-107); EST Glomerular Filtration Rate 92 mL/min (>60); Est Glom Filt Rate - Afr Amer 111 mL/min (>60); Estimated Creatinine Clearance 87.38 ml/min; Glucose 103 mg/dL (74-106); Potassium 3.5 mmol/L (3.5-5.1); Sodium Level 141 mmol/L (136-145)
[2020-01-12 03:30] LABS: Lactic Acid 0.7 mmol/L (0.4-1.9)
[2020-01-12 03:31] LABS: Differential Comment SCANNED
--- NOTE | 2020-01-12 03:41 | PHA.PHARE_ITS ---
Consult Pharmacy has been consulted to manage selected antiobiotic: Vancomycin Type of Consult: New start Suspected Infection: Sepsis, Pneumonia Prior Doses of Antibiotics Received/Current Regimen: Medications Vancomycin HCl (Vancomycin) 1,000 mg in 200 mls @ 200 mls/hr IV Q12H ERWIN Discontinued Medications Vancomycin HCl () 500 mg in 100 mls @ 100 mls/hr IV X1 ONE Stop: 01/12/20 03:21 Last Admin: 01/12/20 03:12 Dose: 100 mls/hr + 1000[facility] dose given [facility] 01/11/20 Labs: Sodium 141 mmol/L (136-145) 01/12/20 02:55 Potassium 3.5 mmol/L (3.5-5.1) 01/12/20 02:55 Chloride 111 mmol/L (98-107) H 01/12/20 02:55 Carbon Dioxide 24.0 mmol/L (21.0-32.0) 01/12/20 02:55 Anion Gap 6 (5-15) 01/12/20 02:55 BUN 55 mg/dL (7-18) H 01/12/20 02:55 Creatinine 0.80 mg/dL (0.55-1.02) 01/12/20 02:55 Est GFR (MDRD) Af Amer 111 mL/min (>60) 01/12/20 02:55 Est GFR (MDRD) Non-Af 92 mL/min (>60) 01/12/20 02:55 BUN/Creatinine Ratio 69.2 RATIO (10-20) H 01/12/20 02:55 Glucose 103 mg/dL (74-106) 01/12/20 02:55 Weight used for dosin.5 kg Estimated Creatinine Clearance: 87 Goal Trough: 15-20 mcg/mL Pharmacy Plan for Drug Dosing: Patient received an initial 1000mg dose at [facility] 01/11/20 evening. An additional 500mg was given here to equal a loading 1500mg dose. Will continue dosing at 1000mg q12h and draw a trough level prior to 4th dose. Pharmacy Service will continue to monitor and adjust dosing as required. Follow-Up Labs: Trough Vancomycin Labs to be done on [date and time ordered]: 01/13/20 @1430
[2020-01-12] MEDS: 0.9% Normal Saline 1,000 ML 75 ML IV ×2 (04:40→18:33)
[2020-01-12 05:15] LABS: Probe Check PASS; Specimen Processing Control PASS
[2020-01-12 05:15] LABS: M R Staph aureus DNA By PCR Negative (Negative); Probe Check PASS; Specimen Processing Control PASS
[2020-01-12] MEDS: Valproic Acid 250 MG/5 ML UDC 750 MG GT ×3 (06:01→22:37)
[2020-01-12] MEDS: clonazePAM 0.5 MG Tablet GT ×2 (06:01→13:17)
[2020-01-12] MEDS: 0.9% Saline Lock 10 ML Syringe IV ×2 (06:08→13:18)
--- NOTE | 2020-01-12 06:20 | RAD_ITS ---
STUDY: X-RAY CHEST REASON FOR EXAM: Female, 29 years old. ETT tube placement TECHNIQUE: Frontal view COMPARISON: 03-28-19 FINDINGS: The endotracheal tube is in the mid trachea. The lungs are clear and expanded. There is no demonstrated pleural abnormality. Normal size heart. Normal mediastinum and nora. Normal visualized pulmonary arteries. Normal visualized aortic arch and descending thoracic aorta. There is kyphosis and levoscoliosis of the thoracic spine. Normal visualized ribs, clavicles, and shoulders. There is no demonstrated abnormality of the visualized soft tissue structures of the upper abdomen. RAD/Chest 1 View (Portable) IMPRESSION: Endotracheal tube is in proper position. The lungs are clear and expanded. Electronically Signed: Hank Marion MD at 7:34 EDT , Service support ,
--- NOTE | 2020-01-12 07:25 | PCM.PN.BLA ---
Progress Note 29-year-old with past medical history of an MRDD, seizure who was admitted with septic shock/pneumonia. Patient was seen in the ICU. She is intubated, on mechanical ventilator. Minimum oxygen requirement with PEEP 5, FiO2 35%. No acute events overnight. Vitals remained stable, not on pressors Urine streptococcal and legionella antigen are negative. Sputum cultures are pending We will continue on IV Zosyn and vancomycin for now STROKE Vital Signs/Narrative: Vital Signs Pulse Resp BP Pulse Ox 01/12/20 05:00 100 16 100 01/12/20 04:00 101 H 16 105/72 100 01/12/20 03:45 99 16 100/69 100 01/12/20 03:30 96 16 102/63 100
--- NOTE | 2020-01-12 08:05 | CON.PCM_ITS ---
Problem List (1) Septic shock Status: Acute (2) Change in mental status Status: Inactive (3) History of seizure disorder Status: Chronic (4) Mental retardation, idiopathic moderate Status: Chronic (5) Chronic kidney disease Status: Chronic Qualifiers: Chronic kidney disease stage: stage 2 (mild) Qualified Code(s): N18.2 - Chronic kidney disease, stage 2 (mild) (6) Scoliosis Status: Chronic Qualifiers: Scoliosis type: idiopathic Idiopathic scoliosis type: adolescent Spinal region: thoracolumbar Qualified Code(s): M41.125 - Adolescent idiopathic sc oliosis, thoracolumbar region (7) Seizures Status: Chronic Reason for Consult Date of Consultation: 01/12/20 Reason for Consultation: Respiratory failure History of Present Illness: The patient is a 29 year old F, with past medical history listed below, who presented from an extended care facility secondary to decreased mental status and shortness of breath. Patient reportedly was desaturating at the outside hospital and was intubated. Patient also noted to have systolic blood pressures of 60s over 40s and received 30 cc/kg fluid bolus without improvement. Patient was given an epinephrine bolus and initiated on Levophed drip. Jacobo catheter was also placed at the outside facility and reportedly a chest x-ray showed a right-sided pneumonia. Patient had a white count of 23,000, but lactate was not significantly elevated. BUN was 70 with a creatinine of 1.1. Patient reportedly does follow with [facility] for seizures. Patient was transferred to [facility] secondary to critical care needs. There is no family at the bedside to provide additional history. Patient is opening her eyes and tracking. Patient was able to be taken off of Levophed shortly after arrival. Patient also had to COVID testing from an endobronchial washing that came back negative. Chest x-ray shows appropriate positioning of supportive devices. Unable to obtain a review of systems at this time. Past Medical History Past Medical History (Chronic Problems): Chronic Problems (Last Reviewed 01/12/20 @ 03:[address] Luis Antonio Adams MD) Dental abscess (Chronic) History of seizure disorder (Chronic) Mental retardation, idiopathic moderate (Chronic) Chronic kidney disease (Chronic) Scoliosis (Chronic) Seizures (Chronic) Medical History: Medical History (Last Reviewed 01/12/20 @ 03:[address] Luis Antonio Adams MD) Chronic kidney disease (Chronic) N18.9 Scoliosis (Chronic) M41.9 Seizures (Chronic) R56.9 Allergies No Known Allergies Allergy (Verified 12/26/19 12:58) Home Medications: Ambulatory Orders Medication Instructions Recorded Multivitamin with Iron [Daily Dario 1 tab GT DAILY 03/26/19 with Iron] clonazepam 0.5 mg disintegrating 0.5 mg GT UD PRN 05/29/19 tablet Wheelchair #1 ea 07/30/19 Skilled home nursing #1 ea 11/28/19 Acetaminophen Liquid [Tylenol 325 mg GT Q8H PRN PRN 01/12/20 Liquid] Calcium 500+D Tablet Chew 1 tab GT DAILY 01/12/20 Ciprofloxacin [Cipro] 1 tab GT BID 01/12/20 Clobazam 10 mg GT BID 01/12/20 Clobazam 20 mg GT QHS 01/12/20 Divalproex Sodium [Depakote ER] 750 mg GT Q8H 01/12/20 Lacosamide Solution [Vimpat 200 mg GT BID 01/12/20 Solution] Lactose-Reduced Food/Fiber 60 ml GT BID 01/12/20 [Isosource 1.5 Santi Tube Feed Lq] Levetiracetam [Keppra] 10 ml GT DAILY 01/12/20 Levetiracetam [Keppra] 15 ml GT QHS 01/12/20 Magnesium Oxide 400 mg GT DAILY 01/12/20 Multivitamin 1 ea GT DAILY 01/12/20 Polyethylene Glycol 3350 [Miralax] 17 gm GT DAILY PRN 01/12/20 Zonisamide 300 mg PO BID 01/12/20 Surgical History: Surgical History (Last Reviewed 01/12/20 @ 03:[address] Luis Antonio Adams MD) History of oral surgery Z98.890 Status post insertion of percutaneous endoscopic gastrostomy (PEG) tube Z93.1 Surgical History: - - Oral surgery, specifically gum surgery. 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 Luis Antonio Adams MD) Grandfather Diabetes Hypertension History Items: - - Patient denies any market maternal or paternal family history specifically with no history of heart disease, diabetes or cancer. Patient does have a maternal grandfather with diabetes and hypertension. Paternal Family History: Family History (Last Reviewed 01/12/20 @ 03:[address] Luis Antonio Adams MD) Grandfather Diabetes Hypertension History Items: - - Patient denies any market maternal or paternal family history specifically with no history of heart disease, diabetes or cancer. Patient does have a maternal grandfather with diabetes and hypertension. Review of Systems Unable to obtain accurate/complete ROS d/t: See HPI Patient Problems: Active and Suspected Problems (Last Reviewed 01/12/20 @ 03:[address] Luis Antonio Adams MD) Septic shock (Acute) Objective: X-ray was personally reviewed and shows a left lower lobe infiltrate. Lines are in appropriate position. - Physical Exam Vitals/I&O's: Vital Signs Temp Pulse Resp BP Pulse Ox 37.3 C H 109 H 18 93/66 100 01/12/20 04:45 01/12/20 06:00 01/12/20 06:00 01/12/20 06:00 01/12/20 06:00 Oxygen Delivery Method Mechanical Ventilator Weight: 58.5 kg Body Mass Index (BMI) 22.8 Intake and Output for Last 24 Hours 01/10/20 01/11/20 01/12/20 23:59 23:59 23:59 Intake Total 233.40 / 233.40 Output Total 275 / 275 Balance -41.60 / -41.60 General: Alert, - - Not following commands. Good vent synchrony. HEENT: Atraumatic, PERRLA, EOMI, Normocephalic, - - No scleral icterus or injection noted Oral: Moist Mucosa, No Gingival or Mucosal Lesions/ Ulcerations Neck: Supple, No JVD, No Nodes, Trachea Midline Lungs: No wheeze, No rales, Diminished - Left base, Rhonchi - Left base, - - Symmetric expansion Cardiovascular: Normal S1, Normal S2, No murmurs, No rub noted, No Gallop, Tachycardic Abdomen: Bowel Sounds Present, Soft, Non Tender, Non-Distended Extremities: No clubbing, No cyanosis, No edema, Capillary Refill Less than 3 Seconds Skin: No rashes, No breakdown Musculoskeletal: No Tenderness to Palpation of Joints or Extremities Lymphatic: No Cervical, Supraclavicular, or Inguinal Adenopathy Neurological: - - Little spontaneous movement of the extremities. Sensation appears to be intact. Psych/Mental Status: Flat Affect Microbiology Past 72 Hours 01/12/20 03:22 Urine Catheter - Jacobo Streptococcus pneumoniae Antigen (M - Final 01/12/20 03:22 Urine Catheter - Jacobo Legionella Antigen - Final Laboratory Results 01/12/20 02:55: Lactic Acid 0.7 01/12/20 02:55: WBC 24.0 H, RBC 2.97 L, Hgb 9.7 L, Hct 30.6 L, MCV 103.0 H, MCH 32.7 H, MCHC 31.7 L, RDW Std Deviation 50.1 H, RDW Coeff of Narendra 13.2, Plt Count 142 L, MPV 10.8, Immature Gran % (Auto) 0.700, Neut % (Auto) 75.1 H, Lymph % (Auto) 8.3 L, [place] % (Auto) 15.7 H, Eos % (Auto) 0.0, Baso % (Auto) 0.2, Absolute Neuts (auto) 18.0 H, Absolute Lymphs (auto) 1.99, Nucleated RBC % 0, Differential Comment SCANNED, Diff Path Review October foll 01/12/20 02:55: Sodium 141, Potassium 3.5, Chloride 111 H, Carbon Dioxide 24.0, Anion Gap 6, BUN 55 H, Creatinine 0.80, Estim Creat Clear Calc 87.38, Est GFR (MDRD) Af Amer 111, Est GFR (MDRD) Non-Af 92, BUN/Creatinine Ratio 69.2 H, Glucose 103, Calcium 8.3 L 01/12/20 02:55: COVID-19 ([facility]) Negative 01/12/20 03:22: MRSA (PCR) Negative Current Medications Acetaminophen (Tylenol Liquid) 325 mg GT Q8H PRN PRN PRN Reason: Pain Score 1-10/10 Albuterol Sulfate (Ventolin Aerosols) 2.5 mg INHALATION Q2H PRN PRN PRN Reason: sob/wheezing Calcium/Vitamin D (Os-Santi 500mg + D) 1 tablet GT DAILY [facility] Chlorhexidine Gluconate () 15 ml PO BID [facility] Clonazepam (Klonopin) 0.5 mg GT UD PRN PRN Reason: seizures >3 min Clonazepam (Klonopin) 1 mg GT QHS [facility] Clonazepam (Klonopin) 0.5 mg GT BID@0600,1400 [facility] Last Admin: 01/12/20 06:01 Dose: 0.5 mg Documented by: Dextrose (D50w Syringe) 0 gm IV X1 PRN; Protocol PRN Reason: Hypoglycemia Enoxaparin Sodium (Lovenox) 40 mg SC DAILY [facility] Famotidine (Pepcid) 20 mg GT BID [facility] Glucagon () 1 mg IM .X1 PRN PRN Reason: Hypoglycemia Sodium Chloride () 250 mls @ 15 mls/hr IV .[id number] PRN PRN Reason: Saline Flush Norepinephrine Bitartrate 8 mg (/ Sodium Chloride) 250 mls @ 9.375 mls/hr CONT INF .[id number] [facility]; Protocol Last Titration: 01/12/20 06:00 Dose: 0 mcg/min, 0 mls/hr Documented by: Fentanyl Citrate 1,000 mcg/ (Sodium Chloride) 100 mls @ 2.5 mls/hr CONT INF .Q40H [facility]; Protocol Last Titration: 01/12/20 06:00 Dose: 25 mcg/hr, 2.5 mls/hr Documented by: Vancomycin IV Pharmacy to Dose (1 ea/ Sodium Chloride) 500 mls @ 250 mls/hr IV PRN PRN; Protocol PRN Reason: Rx to Dose Piperacillin Sod/Tazobactam (Sod 3.375 gm/ Sodium Chloride) 50 mls @ 12.5 mls/hr IV Q8 [facility] Last Admin: 01/12/20 04:44 Dose: 12.5 mls/hr Documented by: Sodium Chloride () 1,000 mls @ 75 mls/hr IV .[id number] [facility] Last Admin: 01/12/20 04:40 Dose: 75 mls/hr Documented by: Vancomycin HCl (Vancomycin) 1,000 mg in 200 mls @ 200 mls/hr IV Q12H [facility] Lacosamide (Vimpat Solution) 200 mg GT BID [facility] Levetiracetam (Keppra Oral Solution) 1,000 mg GT DAILY [facility] Levetiracetam (Keppra Oral Solution) 1,500 mg GT QHS [facility] Magnesium Oxide (Mag-Ox 400) 400 mg GT DAILY [facility] Multivitamins/Minerals (Multivitamin With Minerals (Bkc)) 1 tablet GT DAILYCM [facility] Ondansetron HCl (Zofran) 4 mg IV Q8H PRN PRN PRN Reason: NAUSEA/VOMITING Polyethylene Glycol (Miralax) 17 gm GT DAILY PRN PRN Reason: constipation Sodium Chloride () 10 - 40 ml IV UD PRN PRN Reason: SALINE FLUSH Last Admin: 01/12/20 06:08 Dose: 40 ml Documented by: Valproic Acid (Depakene) 750 mg GT Q8 [facility] Last Admin: 01/12/20 06:01 Dose: 750 mg Documented by: Zonisamide (Zonegran) 300 mg PO BID [facility] Clinical Impression(s) from Imaging Studies Chest X-Ray 01/12/20 06:20 IMPRESSION: Endotracheal tube is in proper position. The lungs are clear and expanded. Electronically Signed: Hank Marion MD at 7:34 EDT , Service support , Assessment/Plan Active and Suspected Problems (Last Reviewed 01/12/20 @ 03:[address] Luis Antonio Adams MD) Septic shock (Acute) RECOMMENDATIONS: 1. Fluid boluses as needed for hypotension 2. Continue empiric antibiotics pending ramos culture 3. Spontaneous breathing and awakening trials per protocol 4. Attempt to obtain old baseline information 5. Remove femoral line if no pressors required in the next 24 hours IMPRESSIONS: 1. Septic shock secondary to left lower lobe pneumonia Repeat chest x-ray shows a left lower lobe infiltrate, not right as reported by the outside facility. Patient was hypotensive requiring fluid bolus es and Levophed. This has been discontinued. Patient appears to be dry on labs, so would challenge with further fluids if necessary. Oxygenation is doing well at this time. Ramos cultures have been ordered. COVID test was negative by bronchial wash. Agree with Vanco and Zosyn given patient lives at a correction. GI prophylaxis with Pepcid. 2. Acute hypoxic respiratory failure secondary to left lower lobe pneumonia Repeat chest x-ray shows no infiltrate at the right base. Unclear if patient had an aspiration event, but this would be unlikely in the left lower lobe. Cultures have been sent. Patient is on broad-spectrum antibiotics. Spontaneous breathing and awakening trials per protocol. Endotracheal tube is in appropriate position per recent x-ray. 3. Acute kidney injury Patient's reported baseline is 0.8. Will attempt hydration. Clinical suspicion for prerenal etiology. Blood pressures are acceptable at this time. No indication for renal replacement therapy at this time. Would avoid nephrotoxic medications. 4. MRDD/scoliosis/seizure disorder/poor history Complicates care, management, recovery and prognosis. Continue home medications. TIME: 40 minutes critical care time spent addressing patient's septic shock, respiratory failure, acute kidney injury, review of all data and collaboration with care team (7 AM to 8 AM) [phone] Critical care first hour
--- NOTE | 2020-01-12 09:46 | PCM.NTREPORT ---
Nutrition Therapy Report - History Nutrition Services has been consulted to:: Manage enteral nutrition Current diet / nutrition support order:: NPO - Anthropometric Measurements Height:: 5 ft 3 in Weight:: 58.5 kg Body Mass Index (BMI):: 22.8 - Relevant Labs Relevant Labs:: WBC 24.0 K/mm3 (4.4-11.0) H 01/12/20 02:55 RBC 2.97 M/mm3 (4.2-5.4) L 01/12/20 02:55 Hgb 9.7 g/dL (12.0-15.0) L 01/12/20 02:55 Hct 30.6 % (37-47) L 01/12/20 02:55 MCV 103.0 fL (81-99) H 01/12/20 02:55 MCH 32.7 pg (27.0-32.0) H 01/12/20 02:55 MCHC 31.7 g/dL (32-36) L 01/12/20 02:55 RDW Std Deviation 50.1 fl (35.1-43.9) H 01/12/20 02:55 Plt Count 142 K/mm3 (150-450) L 01/12/20 02:55 Neut % (Auto) 75.1 % (47-70) H 01/12/20 02:55 Lymph % (Auto) 8.3 % (19-41) L 01/12/20 02:55 [place] % (Auto) 15.7 % (0-10) H 01/12/20 02:55 Absolute Neuts (auto) 18.0 X10^3/uL (2.0-7.7) H 01/12/20 02:55 Chloride 111 mmol/L (98-107) H 01/12/20 02:55 BUN 55 mg/dL (7-18) H 01/12/20 02:55 BUN/Creatinine Ratio 69.2 RATIO (10-20) H 01/12/20 02:55 Calcium 8.3 mg/dL (8.5-10.1) L 01/12/20 02:55 - Assessment Food / Nutrition-Related History:: Not able to talk to pt at this time. Per rounds, pt with PEG, but currently clamped - unknown if issues w/ dysphaga or d/t MR. Pt lives in ECF. Pt currently on vent d/t resp distress - failed SAT screen this am. Per EMR - UBW: 53.524 kg / 118 lb. [ End ] - Nutrition Diagnosis Problem / Etiology / Signs & Symptoms (PES):: Pt with inadequate nutrition r/t on ventilator AEB NPO status. [ End ] Evidence of Malnutrition Exists:: No - Nutrition Intervention Nutrition Prescription:: [id number] mian / 55-65 gm pro / day - Food / Nutrient Delivery Interventions Summary of nutrition intervention:: Rec Vital AF 1.2 at goal rate 60 cc/hr with 100 cc H2O flush every 4 hours to provide ~ 1728 mian / 108 gm pro / 1767 cc free water / day. Would start tf at 20 cc/hr and increase by 6-8 hrs as pt tolerates until goal rate of 60 cc/hr achieved. [ End ] Nutrition support ordered as / adjusted to:: Vital AF 1.2 at goal rate 60 cc/hr with 100 cc H2O flush every 4 hours. Start tf at 20 cc/hr and increase by 6-8 hrs as pt tolerates until goal rate of 60 cc/hr achieved. Nutrition education provided?: No - MNT Monitoring Further MNT monitoring and evaluation required?: Yes MNT Follow-up in:: 1-2 days - if questions, please call RD/LD at [phone]
[2020-01-12] MEDS: Famotidine 20 MG Tablet GT ×2 (10:29→22:38)
[2020-01-12] MEDS: Calcium Carb/Vitamin D 1 TABLET Tablet GT (10:29)
[2020-01-12] MEDS: Enoxaparin 40 MG/0.4 ML Syringe SC (10:29)
[2020-01-12] MEDS: Zonisamide 50 MG Capsule 300 MG PO ×2 (10:30→22:36)
[2020-01-12] MEDS: Magnesium Oxide 400 MG Tablet GT (10:30)
[2020-01-12] MEDS: Multivitamins,Ther W-Minerals Tablet 1 TABLET GT (10:30)
[2020-01-12] MEDS: levETIRAcetam Oral Solution 500 MG/5 ML 1000 MG GT (10:30)
[2020-01-12] MEDS: Chlorhexidine 15 ML PO ×2 (10:31→22:34)
[2020-01-12] MEDS: Lacosamide Solution 100 MG/10 ML UDC 200 MG GT ×2 (10:39→22:40)
[2020-01-12] MEDS: Vital AF 1.2 Cal Liquid 1,000 ML 60 ML GT (10:46)
[2020-01-12] MEDS: Acetaminophen 650 MG/20 ML UDC GT (13:17)
--- NOTE | 2020-01-12 14:05 | EKG12_ITS ---
Test Reason : RHYTHM CHANGE Blood Pressure : / mmHG Vent. Rate : 099 BPM Atrial Rate : 099 BPM P-R Int : 180 ms QRS Dur : 080 ms QT Int : 386 ms P-R-T Axes : 009 093 070 degrees QTc Int : 495 ms Normal sinus rhythm Nonspecific ST abnormality Prolonged QT Abnormal ECG Confirmed by MASHA ALANIZ, YAYA ([id number]), map editor LINDA YANES ([id number]) on 01/15/2020 1:05:39 PM Referred By: CHET Confirmed By:YAYA FLANAGAN MD
--- NOTE | 2020-01-12 16:14 | NURSING ---
report given to nathalia RN at 1430 nathalia RN assuming care of patient at [phone] this RN assumed care of patient
[2020-01-12] MEDS: Vancomycin IV 1,000 MG/200 ML BAG 200 MG IV (16:15)
[2020-01-12] MEDS: clonazePAM 1 MG Tablet GT (22:35)
[2020-01-12] MEDS: levETIRAcetam Oral Solution 500 MG/5 ML 1500 MG GT (22:38)
[2020-01-13] VITALS (56 sets, daily range): BP systolic 81–116; BP diastolic 46–74; PULSE 84–115; RESP 14–22; TEMP 36.9–38.5; O2SAT 94–100
[2020-01-13] MEDS: Vancomycin IV 1,000 MG/200 ML BAG 200 MG IV ×2 (03:37→15:59)
[2020-01-13 03:45] LABS: Absolute Lymphocyte Count 1.62 X10^3/uL (0.83-4.51); Basophil# 0.03 X10^3/uL; Basophil% 0.2 % (0-1); Hematocrit 26.9 % (37-47); Hemoglobin 8.5 g/dL (12.0-15.0); Lymphocyte # 1.62 X10^3/ul (4.0); Lymphocyte % 10.9 % (19-41); Mean Corp Hgb Conc 31.6 g/dL (32-36); Mean Corpuscular Hgb 32.3 pg (27.0-32.0); Mean Corpuscular Volume 102.3 fL (81-99); Mean Platelet Vol. 10.6 fl (6.2-12.0); Monocyte# 2.07 X10^3/uL; NRBC Flagged by Analyzer 0 % (0-5); Neutrophil # 11.02 X10^3/uL (2.7-7.7); Neutrophil % 74.5 % (47-70); POSITIVE DIFFERENTIAL YES; Platelet Count 121 K/mm3 (150-450); RBC Distribution Width CV 13.2 % (11.6-14.6); RBC Distribution Width SD 49.2 fl (35.1-43.9); Red Blood Count 2.63 M/mm3 (4.2-5.4); White Blood Count 14.8 K/mm3 (4.4-11.0)
[2020-01-13 03:49] LABS: Differential Indicated SCAN CRITERIA MET
[2020-01-13 04:02] LABS: ALB/GLOB Ratio 0.4 RATIO (0.9-2.4); AST(SGOT) 24 U/L (15-37); Alanine Aminotransfer ALT/SGPT 15 U/L (13-56); Albumin, Serum 1.6 g/dL (3.2-5.0); Alkaline Phosphatase 53 U/L (45-117); Anion Gap 5 (5-15); BUN 40 mg/dL (7-18); BUN/Creat Ratio 67.8 RATIO (10-20); Calcium,Total 8.6 mg/dL (8.5-10.1); Chloride 115 mmol/L (98-107); Creatinine, Serum 0.59 mg/dL (0.55-1.02); EST Glomerular Filtration Rate 130 mL/min (>60); Est Glom Filt Rate - Afr Amer 157 mL/min (>60); Estimated Creatinine Clearance 118.48 ml/min; Globulin 4.1 g/dL (2.2-4.2); Glucose 93 mg/dL (74-106); Protein, Total 5.7 g/dL (6.4-8.2); Sodium Level 144 mmol/L (136-145)
[2020-01-13 04:37] LABS: Differential Comment SCANNED
[2020-01-13] MEDS: clonazePAM 0.5 MG Tablet GT ×2 (05:23→14:09)
[2020-01-13] MEDS: Valproic Acid 250 MG/5 ML UDC 750 MG GT ×3 (05:23→22:13)
[2020-01-13] MEDS: Acetaminophen 650 MG/20 ML UDC GT (05:24)
--- NOTE | 2020-01-13 05:50 | CPS ---
PT IS MRDD, UNABLE TO FOLLOW COMMANDS FOR NIF
--- NOTE | 2020-01-13 06:23 | PCM.PN.INT ---
Subjective: The patient was seen and examined at the bedside this morning. Events from the last 24 hours have been reviewed. The patient is currently febrile with a T-max of 101.3 ?F over the last 12 hours. The patient is currently maintaining appropriate oxygen saturations on spontaneous mode of mechanical ventilation with an FiO2 requirement of 35%. However, nursing staff and respiratory therapy do report a significant amount of secretions. The patient is currently documented to be overall net +2.7 L for the hospital admission. Potassium is low this morning at 3.0. Blood pressures have been a bit tenuous this morning as well. Objective: The patient's most recent lab work, culture data and imaging studies have all been personally reviewed. Strep and urine Legionella antigens were negative. Sputum culture is pending. Coronavirus PCR was negative on January 11. General: - - Intubated, sedated and mechanically ventilated. HEENT: Atraumatic, Normocephalic Oral: No Gingival or Mucosal Lesions/ Ulcerations, - - Endotracheal and OG tubes in place Neck: Supple, No Nodes, Trachea Midline Lungs: Diminished Cardiovascular: Normal S1, Normal S2, Tachycardic Abdomen: Bowel Sounds Present, Soft, Non Tender Extremities: No clubbing, No cyanosis Skin: No breakdown Musculoskeletal: No Tenderness to Palpation of Joints or Extremities Lymphatic: No Cervical, Supraclavicular, or Inguinal Adenopathy Neurological: - - No focal neurological deficits. Will open eyes and track to verbal stimulation. Vital Signs Temp Pulse Resp BP Pulse Ox 101.3 F H 102 H 17 87/57 L 100 01/13/20 05:00 01/13/20 06:00 01/13/20 06:00 01/13/20 06:00 01/13/20 06:00 Oxygen Delivery Method Mechanical Ventilator Weight: 131 lb 2.801 oz Body Mass Index (BMI) 22.8 Intake and Output for Last 24 Hours 01/11/20 01/12/20 01/13/20 23:59 23:59 23:59 Intake Total 2173.40 / 3092.65 1700.25 / 1700.25 Output Total 1225 / 1300 375 / 375 Balance 948.40 / 1792.65 1325.25 / 1325.25 Labs (Last 48 Hours) 01/12/20 01/12/20 01/12/20 02:55 02:55 02:55 WBC 24.0 H RBC 2.97 L Hgb 9.7 L Hct 30.6 L MCV 103.0 H MCH 32.7 H MCHC 31.7 L RDW Std Deviation 50.1 H RDW Coeff of Narendra 13.2 Plt Count 142 L MPV 10.8 Immature Gran % (Auto) 0.700 Neut % (Auto) 75.1 H Lymph % (Auto) 8.3 L [place] % (Auto) 15.7 H Eos % (Auto) 0.0 Baso % (Auto) 0.2 Absolute Neuts (auto) 18.0 H Absolute Lymphs (auto) 1.99 Nucleated RBC % 0 Differential Comment SCANNED Diff Path Review May foll Sodium 141 Potassium 3.5 Chloride 111 H Carbon Dioxide 24.0 Anion Gap 6 BUN 55 H Creatinine 0.80 Estim Creat Clear Calc 87.38 Est GFR (MDRD) Af Amer 111 Est GFR (MDRD) Non-Af 92 BUN/Creatinine Ratio 69.2 H Glucose 103 Lactic Acid 0.7 Calcium 8.3 L Total Bilirubin AST ALT Alkaline Phosphatase Total Protein Albumin Globulin Albumin/Globulin Ratio COVID-19 ([facility]) MRSA (PCR) 01/12/20 01/12/20 01/13/20 02:55 03:22 03:40 WBC 14.8 H RBC 2.63 L Hgb 8.5 L Hct 26.9 L MCV 102.3 H MCH 32.3 H MCHC 31.6 L RDW Std Deviation 49.2 H RDW Coeff of Narendra 13.2 Plt Count 121 L MPV 10.6 Immature Gran % (Auto) 0.400 Neut % (Auto) 74.5 H Lymph % (Auto) 10.9 L [place] % (Auto) 14.0 H Eos % (Auto) 0.0 Baso % (Auto) 0.2 Absolute Neuts (auto) 11.0 H Absolute Lymphs (auto) 1.62 Nucleated RBC % 0 Differential Comment SCANNED Diff Path Review May foll Sodium Potassium Chloride Carbon Dioxide Anion Gap BUN Creatinine Estim Creat Clear Calc Est GFR (MDRD) Af Amer Est GFR (MDRD) Non-Af BUN/Creatinine Ratio Glucose Lactic Acid Calcium Total Bilirubin AST ALT Alkaline Phosphatase Total Protein Albumin Globulin Albumin/Globulin Ratio COVID-19 ([facility]) Negative MRSA (PCR) Negative 01/13/20 03:40 WBC RBC Hgb Hct MCV MCH MCHC RDW Std Deviation RDW Coeff of Narendra Plt Count MPV Immature Gran % (Auto) Neut % (Auto) Lymph % (Auto) [place] % (Auto) Eos % (Auto) Baso % (Auto) Absolute Neuts (auto) Absolute Lymphs (auto) Nucleated RBC % Differential Comment Diff Path Review Sodium 144 Potassium 3.0 L Chloride 115 H Carbon Dioxide 24.0 Anion Gap 5 BUN 40 H Creatinine 0.59 Estim Creat Clear Calc 118.48 Est GFR (MDRD) Af Amer 157 Est GFR (MDRD) Non-Af 130 BUN/Creatinine Ratio 67.8 H Glucose 93 Lactic Acid Calcium 8.6 Total Bilirubin 0.30 AST 24 ALT 15 Alkaline Phosphatase 53 Total Protein 5.7 L Albumin 1.6 L Globulin 4.1 Albumin/Globulin Ratio 0.4 L COVID-19 ([facility]) MRSA (PCR) Microbiology 01/12/20 04:00 Sputum, Induced/Lukens Gram Stain - Final 01/12/20 03:22 Urine Catheter - Jacobo Streptococcus pneumoniae Antigen (M - Final 01/12/20 03:22 Urine Catheter - Jacobo Legionella Antigen - Final Clinical Impression(s) from Imaging Studies Chest X-Ray 01/12/20 06:20 IMPRESSION: Endotracheal tube is in proper position. The lungs are clear and expanded. Electronically Signed: Hank Marion MD at 7:34 EDT , Service support , Medical Necessity - Tobacco Use Smoking Status: Never smoker Assessment/Plan All Active Problems (Last Reviewed 01/12/20 @ 03:[address] Luis Antonio Adams MD) Septic shock (Acute) Severe dehydration (Acute) RECOMMENDATIONS: 1. Continue patient on invasive mechanical ventilatory support yet today. 2. Transition patient to assist control of mechanical ventilation overnight. 3. Continue empiric antimicrobials. 4. Okay to start tube feeds. 5. Wean supplemental oxygen to maintain saturations at or above 90%. 6. Continue appropriate ICU prophylaxis. IMPRESSIONS: 1. Septic shock secondary to left lower lobe pneumonia Chest x-ray on presentation revealed a possible left lower lobe infiltrate. However, sputum cultures are not currently growing anything. Blood and urine cultures will be sent today. The patient will be continued on empiric antimicrobials for now. Levophed can be utilized if needed to maintain hemodynamic stability. Coronavirus testing by bronchial washing was negative. Given the continued issues with secretions, recommend continuing the patient on invasive mechanical ventilatory support yet today, with plans to repeat spontaneous awakening and breathing trial tomorrow. 2. Acute hypoxic respiratory failure secondary to left lower lobe pneumonia Continue current supportive measures as noted above with invasive mechanical ventilatory support. Wean FiO2 to maintain oxygen saturations at or above 90%. Plan for repeat spontaneous breathing trial tomorrow morning. 3. Hypokalemia Electrolyte repletion as indicated. Recheck levels in the morning. 4. MRDD/scoliosis/seizure disorder/poor history Complicates care, management, recovery and prognosis. Continue home medications. TIME: 37 minutes of critical care time, independent of procedures, was spent addressing the patient's septic shock, questionable left lower lobe pneumonia, acute hypoxemic respiratory failure, hypokalemia, review of all data and collaboration with the care team. ([id number]) [phone] Critical care first hour
[2020-01-13] MEDS: 0.9% Normal Saline 1,000 ML 75 ML IV ×2 (07:15→12:52)
[2020-01-13] MEDS: Chlorhexidine 15 ML PO ×2 (09:29→22:12)
[2020-01-13] MEDS: 0.9% Saline Lock 10 ML Syringe IV ×3 (09:29→16:04)
[2020-01-13] MEDS: Zonisamide 50 MG Capsule 300 MG PO ×2 (09:29→22:19)
[2020-01-13] MEDS: Calcium Carb/Vitamin D 1 TABLET Tablet GT (09:29)
[2020-01-13] MEDS: Famotidine 20 MG Tablet GT ×2 (09:30→22:15)
[2020-01-13] MEDS: Magnesium Oxide 400 MG Tablet GT (09:30)
[2020-01-13] MEDS: Enoxaparin 40 MG/0.4 ML Syringe SC (09:30)
[2020-01-13] MEDS: Multivitamins,Ther W-Minerals Tablet 1 TABLET GT (09:30)
[2020-01-13] MEDS: levETIRAcetam Oral Solution 500 MG/5 ML 1000 MG GT (09:31)
[2020-01-13] MEDS: Lacosamide Solution 100 MG/10 ML UDC 200 MG GT ×2 (09:34→22:19)
[2020-01-13 12:58] LABS: Pathologist Review Reviewed
--- NOTE | 2020-01-13 15:35 | CASEMGMT ---
RICKY faxed updates to Pratima Albarado. RICKY will also clarify with patient's family that the plan is for patient to return to [facility] at discharge. Christina LUO MSW
[2020-01-13] MEDS: Vital AF 1.2 Cal Liquid 1,000 ML 60 ML GT (16:10)
[2020-01-13 16:29] LABS: Vancomycin, Trough Level 22.7 ug/mL (5.0-15.0)
--- NOTE | 2020-01-13 17:07 | PCM.RX.CS ---
Consult Pharmacy has been consulted to manage selected antiobiotic: Vancomycin Type of Consult: Follow-up Prior Doses of Antibiotics Received/Current Regimen: Medications Vancomycin HCl (Vancomycin) 1,000 mg in 200 mls @ 200 mls/hr IV Q12H ERWIN Last Admin: 01/13/20 16:59 Dose: Infused Documented by: Labs: Sodium 144 mmol/L (136-145) 01/13/20 03:40 Potassium 3.0 mmol/L (3.5-5.1) L 01/13/20 03:40 Chloride 115 mmol/L (98-107) H 01/13/20 03:40 Carbon Dioxide 24.0 mmol/L (21.0-32.0) 01/13/20 03:40 Anion Gap 5 (5-15) 01/13/20 03:40 BUN 40 mg/dL (7-18) H 01/13/20 03:40 Creatinine 0.59 mg/dL (0.55-1.02) 01/13/20 03:40 Est GFR (MDRD) Af Amer 157 mL/min (>60) 01/13/20 03:40 Est GFR (MDRD) Non-Af 130 mL/min (>60) 01/13/20 03:40 BUN/Creatinine Ratio 67.8 RATIO (10-20) H 01/13/20 03:40 Glucose 93 mg/dL (74-106) 01/13/20 03:40 Vancomycin Trough 22.7 ug/mL (5.0-15.0) H 01/13/20 14:25 Microbiology: Microbiology 01/12/20 04:00 Sputum, Induced/Lukens Gram Stain - Final 01/12/20 04:00 Sputum, Induced/Lukens Respiratory Culture - Preliminary Appears to be normal respiratory stefan. Further studies to follow. 01/12/20 03:22 Urine Catheter - Jacobo Streptococcus pneumoniae Antigen (M - Final 01/12/20 03:22 Urine Catheter - Jacobo Legionella Antigen - Final Weight used for dosin kg Goal Trough: 15-20 mcg/mL Pharmacy Plan for Drug Dosing: Trough above goal. Decrease to 750mg IV q12h and recheck after 4 doses. Pharmacy Service will continue to monitor and adjust dosing as required. Follow-Up Labs: Trough Vancomycin - 01/14 @ 1930
--- NOTE | 2020-01-13 17:58 | PCM.PROGNOTE ---
Patient Problems: Active and Suspected Problems (Last Reviewed 01/12/20 @ 03:[address] Luis Antonio Adams MD) Septic shock (Acute) Subjective: Examined today, she remains sedated and on the ventilator. Chest x-ray performed yesterday was read out as normal, it appears on inspection of the images that the patient may have a left lower lobe infiltrate. Patient's blood culture is pending at this time. - Physical Exam Vitals/I&O's: Vital Signs Temp Pulse Resp BP Pulse Ox 99.5 F H 99 16 95/61 100 01/13/20 16:00 01/13/20 17:01 01/13/20 17:01 01/13/20 17:00 01/13/20 17:01 Oxygen Delivery Method Mechanical Ventilator Weight: 59.5 kg Body Mass Index (BMI) 22.8 Intake and Output for Last 24 Hours 01/11/20 01/12/20 01/13/20 23:59 23:59 23:59 Intake Total 2173.40 / 3092.65 4761.04 / 4761.04 Output Total 1225 / 1300 935 / 935 Balance 948.40 / 1792.65 3826.04 / 3826.04 General: - - Patient is sedated and on the ventilator HEENT: Atraumatic, Normocephalic Oral: Moist Mucosa Neck: No JVD, Trachea Midline, Thyroid Normal Size and Texture Lungs: No rhonchi, No wheeze, No rales, Diminished - Diminished breath sounds over the patient's left lower lung field Cardiovascular: Regular rate, Regular Rhythm, Normal S1, Normal S2, PMI Normal, No rub noted Abdomen: Bowel Sounds Present, Soft, Non Tender, Non-Distended Extremities: No clubbing, No cyanosis, No edema Neurological: - - Patient is sedated and on the ventilator at this time Psych/Mental Status: - - Patient is sedated and on the ventilator at this time Microbiology Past 72 Hours 01/12/20 04:00 Sputum, Induced/Lukens Gram Stain - Final 01/12/20 04:00 Sputum, Induced/Lukens Respiratory Culture - Preliminary Appears to be normal respiratory stefan. Further studies to follow. 01/12/20 03:22 Urine Catheter - Jacobo Streptococcus pneumoniae Antigen (M - Final 01/12/20 03:22 Urine Catheter - Jacobo Legionella Antigen - Final Laboratory Results 01/12/20 02:55: Diff Path Review Reviewed 01/13/20 03:40: WBC 14.8 H, RBC 2.63 L, Hgb 8.5 L, Hct 26.9 L, MCV 102.3 H, MCH 32.3 H, MCHC 31.6 L, RDW Std Deviation 49.2 H, RDW Coeff of Narendra 13.2, Plt Count 121 L, MPV 10.6, Immature Gran % (Auto) 0.400, Neut % (Auto) 74.5 H, Lymph % (Auto) 10.9 L, [place] % (Auto) 14.0 H, Eos % (Auto) 0.0, Baso % (Auto) 0.2, Absolute Neuts (auto) 11.0 H, Absolute Lymphs (auto) 1.62, Nucleated RBC % 0, Differential Comment SCANNED, Diff Path Review May foll 01/13/20 03:40: Sodium 144, Potassium 3.0 L, Chloride 115 H, Carbon Dioxide 24.0, Anion Gap 5, BUN 40 H, Creatinine 0.59, Estim Creat Clear Calc 118.48, Est GFR (MDRD) Af Amer 157, Est GFR (MDRD) Non-Af 130, BUN/Creatinine Ratio 67.8 H, Glucose 93, Calcium 8.6, Total Bilirubin 0.30, AST 24, ALT 15, Alkaline Phosphatase 53, Total Protein 5.7 L, Albumin 1.6 L, Globulin 4.1, Albumin/Globulin Ratio 0.4 L 01/13/20 14:05: Vancomycin Trough Cancelled 01/13/20 14:25: Vancomycin Trough 22.7 H Current Medications Acetaminophen (Tylenol Liquid) 650 mg GT Q6H PRN PRN PRN Reason: PAIN 1-10/FEVER Last Admin: 01/13/20 05:24 Dose: 650 mg Documented by: Albuterol Sulfate (Ventolin Aerosols) 2.5 mg INHALATION Q2H PRN PRN PRN Reason: sob/wheezing Calcium/Vitamin D (Os-Santi 500mg + D) 1 tablet GT DAILY [facility] Last Admin: 01/13/20 09:29 Dose: 1 tablet Documented by: Chlorhexidine Gluconate () 15 ml PO BID [facility] Last Admin: 01/13/20 09:29 Dose: 15 ml Documented by: Clonazepam (Klonopin) 0.5 mg GT UD PRN PRN Reason: seizures >3 min Clonazepam (Klonopin) 1 mg GT QHS [facility] Last Admin: 01/12/20 22:35 Dose: 1 mg Documented by: Clonazepam (Klonopin) 0.5 mg GT BID@0600,1400 [facility] Last Admin: 01/13/20 14:09 Dose: 0.5 mg Documented by: Dextrose (D50w Syringe) 0 gm IV X1 PRN; Protocol PRN Reason: Hypoglycemia Enoxaparin Sodium (Lovenox) 40 mg SC DAILY [facility] Last Admin: 01/13/20 09:30 Dose: 40 mg Documented by: Famotidine (Pepcid) 20 mg GT BID [facility] Last Admin: 01/13/20 09:30 Dose: 20 mg Documented by: Glucagon () 1 mg IM .X1 PRN PRN Reason: Hypoglycemia Sodium Chloride () 250 mls @ 15 mls/hr IV .[id number] PRN PRN Reason: Saline Flush Norepinephrine Bitartrate 8 mg (/ Sodium Chloride) 250 mls @ 9.375 mls/hr CONT INF .[id number] [facility]; Protocol Last Titration: 01/13/20 17:00 Dose: 0 mcg/min, 0 mls/hr Documented by: Fentanyl Citrate 1,000 mcg/ (Sodium Chloride) 100 mls @ 2.5 mls/hr CONT INF .Q40H [facility]; Protocol Last Titration: 01/13/20 17:00 Dose: 0 mcg/hr, 0 mls/hr Documented by: Vancomycin IV Pharmacy to Dose (1 ea/ Sodium Chloride) 500 mls @ 250 mls/hr IV PRN PRN; Protocol PRN Reason: Rx to Dose Piperacillin Sod/Tazobactam (Sod 3.375 gm/ Sodium Chloride) 50 mls @ 12.5 mls/hr IV Q8 [facility] Last Infusion: 01/13/20 17:00 Dose: Infused Documented by: Sodium Chloride () 1,000 mls @ 75 mls/hr IV .[id number] [facility] Last Infusion: 01/13/20 15:59 Dose: 0 mls/hr Documented by: Enteral Nutritional Formula (Vital Af 1.2 Santi Liquid) 1,000 mls @ 60 mls/hr GT .[id number] [facility] Last Admin: 01/13/20 16:10 Dose: 60 mls/hr Documented by: Vancomycin HCl 750 mg/ Sodium (Chloride) 265 mls @ 250 mls/hr IV Q12H [facility] Lacosamide (Vimpat Solution) 200 mg GT BID [facility] Levetiracetam (Keppra Oral Solution) 1,000 mg GT DAILY [facility] Last Admin: 01/13/20 09:31 Dose: 1,000 mg Documented by: Levetiracetam (Keppra Oral Solution) 1,500 mg GT QHS [facility] Last Admin: 01/12/20 22:38 Dose: 1,500 mg Documented by: Magnesium Oxide (Mag-Ox 400) 400 mg GT DAILY [facility] Last Admin: 01/13/20 09:30 Dose: 400 mg Documented by: Multivitamins/Minerals ([facility] With Min[facility] (B[facility])) [facility] Last Admin: 01/13/20 09:30 Dose: 1 tablet Documented by: Ondansetron HCl (Zofran) 4 mg IV Q8H PRN PRN PRN Reason: NAUSEA/VOMITING Polyethylene Glycol (Miralax) 17 gm GT DAILY PRN PRN Reason: constipation Sodium Chloride () 10 - 40 ml IV UD PRN PRN Reason: SALINE FLUSH Last Admin: 01/13/20 16:04 Dose: 10 ml Documented by: Valproic Acid (Depakene) 750 mg GT Q8 [facility] Last Admin: 01/13/20 14:09 Dose: 750 mg Documented by: Zonisamide (Zonegran) 300 mg PO BID [facility] Last Admin: 01/13/20 09:29 Dose: 300 mg Documented by: Medical Necessity - Tobacco Use Smoking Status: Never smoker Assessment/Plan All Active Problems (Last Reviewed 01/12/20 @ 03:[address] Luis Antonio Adams MD) Septic shock (Acute) Severe dehydration (Acute) #1 septic shock secondary to left lower lobe pneumonia-continue antibiotics at this time, I discussed the case with pulmonary medicine today #2 acute hypoxic respiratory failure secondary to left lower lobe pneumonia and septic shock-pulmonary medicine is managing ventilator at this time #3 left lower lobe community-acquired pneumonia-organism unknown #4 MRDD #5 seizure disorder #6 hypokalemia-potassium supplementation was given, labs will be rechecked tomorrow Inpatient E&M: 08133 Subs Hosp L2
[2020-01-13] MEDS: clonazePAM 1 MG Tablet GT (22:15)
[2020-01-13] MEDS: levETIRAcetam Oral Solution 500 MG/5 ML 1500 MG GT (22:37)
[2020-01-14] VITALS (37 sets, daily range): BP systolic 92–116; BP diastolic 53–76; PULSE 91–114; RESP 14–32; TEMP 36.9–38.3; O2SAT 90–100; BMI 24.7
[2020-01-14 04:22] LABS: Absolute Neutrophil Count 9.7 X10^3/uL (2.0-7.7); Basophil# 0.04 X10^3/uL; Basophil% 0.3 % (0-1); Hematocrit 26.2 % (37-47); Hemoglobin 8.4 g/dL (12.0-15.0); Lymphocyte % 13.7 % (19-41); Mean Corp Hgb Conc 32.1 g/dL (32-36); Mean Corpuscular Hgb 32.9 pg (27.0-32.0); Mean Corpuscular Volume 102.7 fL (81-99); Mean Platelet Vol. 11.2 fl (6.2-12.0); Monocyte# 1.61 X10^3/uL; Monocyte% 12.2 % (0-10); NRBC Flagged by Analyzer 0 % (0-5); Neutrophil # 9.66 X10^3/uL (2.7-7.7); Neutrophil % 73.3 % (47-70); POSITIVE DIFFERENTIAL YES; Platelet Count 157 K/mm3 (150-450); RBC Distribution Width CV 13.2 % (11.6-14.6); RBC Distribution Width SD 49.7 fl (35.1-43.9); Red Blood Count 2.55 M/mm3 (4.2-5.4); White Blood Count 13.2 K/mm3 (4.4-11.0)
[2020-01-14 04:31] LABS: Differential Indicated SCAN CRITERIA MET
[2020-01-14 04:46] LABS: ALB/GLOB Ratio 0.3 RATIO (0.9-2.4); AST(SGOT) 31 U/L (15-37); Alanine Aminotransfer ALT/SGPT 22 U/L (13-56); Albumin, Serum 1.5 g/dL (3.2-5.0); Alkaline Phosphatase 64 U/L (45-117); Anion Gap 4 (5-15); BUN 34 mg/dL (7-18); BUN/Creat Ratio 60.9 RATIO (10-20); Calcium,Total 8.6 mg/dL (8.5-10.1); Chloride 119 mmol/L (98-107); Creatinine, Serum 0.56 mg/dL (0.55-1.02); Differential Comment SCANNED; EST Glomerular Filtration Rate 138 mL/min (>60); Est Glom Filt Rate - Afr Amer 167 mL/min (>60); Estimated Creatinine Clearance 124.83 ml/min; Globulin 4.4 g/dL (2.2-4.2); Glucose 109 mg/dL (74-106); Potassium 4.1 mmol/L (3.5-5.1); Protein, Total 5.9 g/dL (6.4-8.2); Sodium Level 145 mmol/L (136-145)
[2020-01-14] MEDS: 0.9% Normal Saline 1,000 ML 75 ML IV (04:46)
--- NOTE | 2020-01-14 05:59 | PCM.PN.INT ---
Subjective: The patient was seen and examined at the bedside this morning. Events from the last 24 hours have been reviewed. The patient is currently afebrile, hemodynamically stable and maintaining appropriate oxygen saturations with an FiO2 requirement of 30%. The patient continues to have copious amounts of secretions from her endotracheal tube. Nursing staff does report that the patient is less responsive this morning, despite being off of all form of sedation. Nursing staff did reach out to the patient's family who indicated that she is not supposed to be on scheduled Klonopin. This medication was apparently only being used as needed for seizure activity. However, on admission to the hospital, it was ordered as a scheduled medication. Therefore, instructions were given to discontinue the Klonopin completely. Objective: The patient's most recent lab work, culture data and imaging studies have all been personally reviewed. Infectious work-up has been unrevealing to date. General: - - Remains intubated and mechanically ventilated. HEENT: Atraumatic, Normocephalic Oral: No Gingival or Mucosal Lesions/ Ulcerations, - - Endotracheal and OG tubes in place Neck: Supple, No Nodes, Trachea Midline Lungs: No rhonchi, No wheeze, No rales, Diminished, - - Significant oral secretions noted by nursing staff. Cardiovascular: Normal S1, Normal S2, Tachycardic Abdomen: Bowel Sounds Present, Soft, Non Tender, - - +PEG Extremities: No clubbing, No cyanosis Skin: No breakdown Musculoskeletal: No Tenderness to Palpation of Joints or Extremities Lymphatic: No Cervical, Supraclavicular, or Inguinal Adenopathy Neurological: - - The patient will open her eyes to verbal stimulation. She was able to attempt to squeeze my hand. Vital Signs Temp Pulse Resp BP Pulse Ox 100 F H 106 H 23 H 106/64 100 01/14/20 03:00 01/14/20 05:15 01/14/20 05:03 01/14/20 05:15 01/14/20 05:03 Oxygen Delivery Method Mechanical Ventilator Weight: 131 lb 2.801 oz Body Mass Index (BMI) 22.8 Intake and Output for Last 24 Hours 01/12/20 01/13/20 01/14/20 23:59 23:59 23:59 Intake Total 2173.40 / 3092.65 4916.28 / 4923.78 808.75 / 808.75 Output Total 1225 / 1300 1295 / 1495 500 / 500 Balance 948.40 / 1792.65 3621.28 / 3428.78 308.75 / 308.75 Labs (Last 48 Hours) 01/12/20 01/13/20 01/13/20 02:55 03:40 03:40 WBC 14.8 H RBC 2.63 L Hgb 8.5 L Hct 26.9 L MCV 102.3 H MCH 32.3 H MCHC 31.6 L RDW Std Deviation 49.2 H RDW Coeff of Narendra 13.2 Plt Count 121 L MPV 10.6 Immature Gran % (Auto) 0.400 Neut % (Auto) 74.5 H Lymph % (Auto) 10.9 L [place] % (Auto) 14.0 H Eos % (Auto) 0.0 Baso % (Auto) 0.2 Absolute Neuts (auto) 11.0 H Absolute Lymphs (auto) 1.62 Nucleated RBC % 0 Differential Comment SCANNED Diff Path Review Reviewed October foll Sodium 144 Potassium 3.0 L Chloride 115 H Carbon Dioxide 24.0 Anion Gap 5 BUN 40 H Creatinine 0.59 Estim Creat Clear Calc 118.48 Est GFR (MDRD) Af Amer 157 Est GFR (MDRD) Non-Af 130 BUN/Creatinine Ratio 67.8 H Glucose 93 Calcium 8.6 Total Bilirubin 0.30 AST 24 ALT 15 Alkaline Phosphatase 53 Total Protein 5.7 L Albumin 1.6 L Globulin 4.1 Albumin/Globulin Ratio 0.4 L Vancomycin Trough 01/13/20 01/13/20 01/14/20 14:05 14:25 04:15 WBC 13.2 H RBC 2.55 L Hgb 8.4 L Hct 26.2 L MCV 102.7 H MCH 32.9 H MCHC 32.1 RDW Std Deviation 49.7 H RDW Coeff of Narendra 13.2 Plt Count 157 MPV 11.2 Immature Gran % (Auto) 0.500 Neut % (Auto) 73.3 H Lymph % (Auto) 13.7 L [place] % (Auto) 12.2 H Eos % (Auto) 0.0 Baso % (Auto) 0.3 Absolute Neuts (auto) 9.7 H Absolute Lymphs (auto) 1.80 Nucleated RBC % 0 Differential Comment SCANNED Diff Path Review May foll Sodium Potassium Chloride Carbon Dioxide Anion Gap BUN Creatinine Estim Creat Clear Calc Est GFR (MDRD) Af Amer Est GFR (MDRD) Non-Af BUN/Creatinine Ratio Glucose Calcium Total Bilirubin AST ALT Alkaline Phosphatase Total Protein Albumin Globulin Albumin/Globulin Ratio Vancomycin Trough Cancelled 22.7 H 01/14/20 04:15 WBC RBC Hgb Hct MCV MCH MCHC RDW Std Deviation RDW Coeff of Narendra Plt Count MPV Immature Gran % (Auto) Neut % (Auto) Lymph % (Auto) [place] % (Auto) Eos % (Auto) Baso % (Auto) Absolute Neuts (auto) Absolute Lymphs (auto) Nucleated RBC % Differential Comment Diff Path Review Sodium 145 Potassium 4.1 Chloride 119 H Carbon Dioxide 22.0 Anion Gap 4 L BUN 34 H Creatinine 0.56 Estim Creat Clear Calc 124.83 Est GFR (MDRD) Af Amer 167 Est GFR (MDRD) Non-Af 138 BUN/Creatinine Ratio 60.9 H Glucose 109 H Calcium 8.6 Total Bilirubin 0.30 AST 31 ALT 22 Alkaline Phosphatase 64 Total Protein 5.9 L Albumin 1.5 L Globulin 4.4 H Albumin/Globulin Ratio 0.3 L Vancomycin Trough Microbiology 01/12/20 04:00 Sputum, Induced/Lukens Gram Stain - Final 01/12/20 04:00 Sputum, Induced/Lukens Respiratory Culture - Preliminary Appears to be normal respiratory stefan. Further studies to follow. 01/12/20 03:22 Urine Catheter - Jacobo Streptococcus pneumoniae Antigen (M - Final 01/12/20 03:22 Urine Catheter - Jacobo Legionella Antigen - Final Clinical Impression(s) from Imaging Studies Chest X-Ray 01/12/20 06:20 IMPRESSION: Endotracheal tube is in proper position. The lungs are clear and expanded. Electronically Signed: Hank Marion MD at 7:34 EDT , Service support , Medical Necessity - Tobacco Use Smoking Status: Never smoker Assessment/Plan All Active Problems (Last Reviewed 01/12/20 @ 03:[address] Luis Antonio Adams MD) Septic shock (Acute) Severe dehydration (Acute) RECOMMENDATIONS: 1. Discontinue Klonopin. 2. Obtain EEG. 3. Clarify home use of Klonopin with patient's family. 4. Continue invasive mechanical ventilatory support. The patient be continued on spontaneous mode of mechanical ventilation with plans to transition back to assist control for overnight support. 5. Continue appropriate ICU prophylaxis. 6. Continue baseline antiepileptics. 7. Continue Zosyn with plans to complete 7-day treatment course. Vancomycin can be discontinued from my perspective. IMPRESSIONS: 1. Septic shock secondary to left lower lobe pneumonia Chest x-ray on presentation revealed a possible left lower lobe infiltrate. However, sputum cultures are not currently growing anything. Blood and urine cultures are still pending. Plan at this time to discontinue vancomycin and continue Zosyn for a total of 7 days treatment duration. The patient has been hemodynamically stable without the need for further vasopressor support. Coronavirus testing by bronchial washing was negative. The patient does continue to have significant oral secretions, which is apparently baseline for her. The patient scheduled Klonopin will be discontinued today and she will be continued on invasive mechanical ventilatory support. If her mentation improves, I do suspect that she can likely be extubated tomorrow. 2. Acute hypoxic respiratory failure secondary to left lower lobe pneumonia Continue current supportive measures as noted above with invasive mechanical ventilatory support. Wean FiO2 to maintain oxygen saturations at or above 90%. 3. MRDD/scoliosis/seizure disorder/poor history Complicates care, management, recovery and prognosis. Continue home medications. TIME: 39 minutes of critical care time, independent of procedures, was spent addressing the patient's septic shock, questionable left lower lobe pneumonia, acute hypoxemic respiratory failure, encephalopathy, review of all data and collaboration with the care team. ([id number]) [phone]: [id number] Critical care first hour
[2020-01-14] MEDS: Valproic Acid 250 MG/5 ML UDC 750 MG GT ×3 (06:57→21:05)
--- NOTE | 2020-01-14 07:58 | TELEMED_ITS ---
[facility] Tele[facility] has confirmed receipt of a request for visit. This document confirms receipt of the order initiating the consult. To find the results of the consultation, please view the patient's reports for the scanned Telemed Consult.
[2020-01-14] MEDS: Multivitamins,Ther W-Minerals Tablet 1 TABLET GT (08:30)
[2020-01-14] MEDS: Acetaminophen 650 MG/20 ML UDC GT (08:30)
[2020-01-14] MEDS: Polyethylene Glycol 3350 17 GM PACKET GT ×2 (08:31→21:05)
[2020-01-14] MEDS: Zonisamide 50 MG Capsule 300 MG PO ×2 (09:58→21:05)
[2020-01-14] MEDS: 0.9% Saline Lock 10 ML Syringe IV (09:58)
[2020-01-14] MEDS: Calcium Carb/Vitamin D 1 TABLET Tablet GT (09:59)
[2020-01-14] MEDS: levETIRAcetam Oral Solution 500 MG/5 ML 1000 MG GT (09:59)
[2020-01-14] MEDS: Famotidine 20 MG Tablet GT ×2 (10:00→21:06)
[2020-01-14] MEDS: Enoxaparin 40 MG/0.4 ML Syringe SC (10:00)
[2020-01-14] MEDS: Magnesium Oxide 400 MG Tablet GT (10:00)
[2020-01-14] MEDS: Chlorhexidine 15 ML PO ×2 (10:00→21:07)
[2020-01-14] MEDS: Lacosamide Solution 100 MG/10 ML UDC 200 MG GT ×2 (10:04→21:06)
[2020-01-14] MEDS: Vital AF 1.2 Cal Liquid 1,000 ML 60 ML GT (10:05)
--- NOTE | 2020-01-14 10:18 | CASEMGMT ---
RICKY called patient's parents and left a voice mail requesting a return call regarding d/c plan. Christina LUO MSW
--- NOTE | 2020-01-14 11:20 | CASEMGMT ---
RICKY received a return phone call from patient's dad. He said he isn't sure about returning to [facility]. He feels she was discharged from [place] too early and that she was too much care for [facility]. He said they told him to ask about patient going to an [facility]ACH. RICKY told him that may be a possibility. However, then he asked about there locations and RICKY told him [place] and [place] are the closest ones. He then changed his mind and would rather she not go that far. He said he will have to wait and see how she is when it is a little closer to discharge. RICKY told him RICKY will continue to follow and help with planning. Plan: d/c back to [facility] vs home vs another [place] [facility] Christina LUO MSW
--- NOTE | 2020-01-14 11:50 | NT.THERAPY_ITS ---
Nutrition Therapy Report - History Nutrition Services has been consulted to:: Manage enteral nutrition Current diet / nutrition support order:: NPO; Vital AF 1.2 via PEG at goal rate of 60mL/hour w/ 100mL H2O flush every 4 hours - Anthropometric Measurements Height:: 5 ft 3 in Weight:: 63.5 kg Body Mass Index (BMI):: 24.7 - Relevant Labs Relevant Labs:: WBC 13.2 K/mm3 (4.4-11.0) H 01/14/20 04:15 RBC 2.55 M/mm3 (4.2-5.4) L 01/14/20 04:15 Hgb 8.4 g/dL (12.0-15.0) L 01/14/20 04:15 Hct 26.2 % (37-47) L 01/14/20 04:15 MCV 102.7 fL (81-99) H 01/14/20 04:15 MCH 32.9 pg (27.0-32.0) H 01/14/20 04:15 MCHC 31.6 g/dL (32-36) L 01/13/20 03:40 RDW Std Deviation 49.7 fl (35.1-43.9) H 01/14/20 04:15 Plt Count 121 K/mm3 (150-450) L 01/13/20 03:40 Neut % (Auto) 73.3 % (47-70) H 01/14/20 04:15 Lymph % (Auto) 13.7 % (19-41) L 01/14/20 04:15 [place] % (Auto) 12.2 % (0-10) H 01/14/20 04:15 Absolute Neuts (auto) 9.7 X10^3/uL (2.0-7.7) H 01/14/20 04:15 Potassium 3.0 mmol/L (3.5-5.1) L 01/13/20 03:40 Chloride 119 mmol/L (98-107) H 01/14/20 04:15 Anion Gap 4 (5-15) L 01/14/20 04:15 BUN 34 mg/dL (7-18) H 01/14/20 04:15 BUN/Creatinine Ratio 60.9 RATIO (10-20) H 01/14/20 04:15 Glucose 109 mg/dL (74-106) H 01/14/20 04:15 Calcium 8.3 mg/dL (8.5-10.1) L 01/12/20 02:55 Total Protein 5.9 g/dL (6.4-8.2) L 01/14/20 04:15 Albumin 1.5 g/dL (3.2-5.0) L 01/14/20 04:15 Globulin 4.4 g/dL (2.2-4.2) H 01/14/20 04:15 Albumin/Globulin Ratio 0.3 RATIO (0.9-2.4) L 01/14/20 04:15 - Assessment Food / Nutrition-Related History:: Discussed in ICU rounds. Pt remains intubated. Tolerating enteral nutrition support via PEG at goal rate of 60mL/hour. Nursing staff reports abd distention this AM, miralax given. Wt increase of 4 kg since last review. Has generalized 2+ pitting edema. Anticipate wt loss as fluid status improves. - Nutrition Diagnosis Problem / Etiology / Signs & Symptoms (PES):: Inadequate oral intake related to respiratory failure requiring mechanical intubation as evidenced by insufficient oral intake to meet estimated protein/calories needs. Evidence of Malnutrition Exists:: No - Nutrition Intervention Nutrition Prescription:: [id number] calories/day; 60-95 g protein/day - Food / Nutrient Delivery Interventions Summary of nutrition intervention:: Of note, pt usually on Jevity at [facility] which is higher in fiber. Will continue Vital AF 1.2 d/t respiratory status w/ goal of resuming home tube feeds once extubated. Nutrition support ordered as / adjusted to:: Continue Vital AF 1.2 via PEG at goal rate 60mL/hr with 100mL H2O flush every 4 hours to provide 1728 calories / 108 g protein / 1767mL free water per day. Nutrition education provided?: No - MNT Monitoring Further MNT monitoring and evaluation required?: Yes MNT Follow-up in:: 1-2 days
[2020-01-14 12:12] LABS: Pathologist Review Reviewed
[2020-01-14 12:20] LABS: Pathologist Review Reviewed
--- NOTE | 2020-01-14 17:30 | PCM.PROGNOTE ---
Patient Problems: Active and Suspected Problems (Last Reviewed 01/12/20 @ 03:[address] Luis Antonio Adams MD) Septic shock (Acute) Subjective: Patient was seen and examined today, she remains on the ventilator, she was taken off her Klonopin due to the fact that she only takes it when she has seizures according to her mother. I talked with pulmonary medicine about this and they feel that it could be causing the patient to have difficulty weaning from the vent. Patient's blood cultures still pending, urine culture grew out small amounts of yeast that was not Em albicans. Objective: General: - - Patient is sedated and on the ventilator HEENT: Atraumatic, Normocephalic Oral: Moist Mucosa Neck: No JVD, Trachea Midline, Thyroid Normal Size and Texture Lungs: No rhonchi, No wheeze, No rales, Diminished - Diminished breath sounds over the patient's left lower lung field Cardiovascular: Regular rate, Regular Rhythm, Normal S1, Normal S2, PMI Normal, No rub noted Abdomen: Bowel Sounds Present, Soft, Non Tender, Non-Distended Extremities: No clubbing, No cyanosis, No edema Neurological: - - Patient is sedated and on the ventilator at this time Psych/Mental Status: - - Patient is sedated and on the ventilator at this time - Physical Exam Vitals/I&O's: Vital Signs Temp Pulse Resp BP Pulse Ox 98.4 F 111 H 26 H 97/65 97 01/14/20 16:00 01/14/20 16:00 01/14/20 16:00 01/14/20 16:00 01/14/20 16:00 Oxygen Delivery Method Mechanical Ventilator Weight: 63.5 kg Body Mass Index (BMI) 24.7 Intake and Output for Last 24 Hours 01/12/20 01/13/20 01/14/20 23:59 23:59 23:59 Intake Total 2173.40 / 3092.65 4916.28 / 4923.78 2743.25 / 2743.25 Output Total 1225 / 1300 1295 / 1495 1700 / 1700 Balance 948.40 / 1792.65 3621.28 / 3428.78 1043.25 / 1043.25 Microbiology Past 72 Hours 01/13/20 10:20 Urine Catheter - Jacobo Urine Culture - Preliminary Yeast, not Em albicans 01/12/20 04:00 Sputum, Induced/Lukens Gram Stain - Final 01/12/20 04:00 Sputum, Induced/Lukens Respiratory Culture - Preliminary Culture exhibits no growth. 01/12/20 03:22 Urine Catheter - Jacobo Streptococcus pneumoniae Antigen (M - Final 01/12/20 03:22 Urine Catheter - Jacobo Legionella Antigen - Final Laboratory Results 01/13/20 03:40: Diff Path Review Reviewed 01/14/20 04:15: WBC 13.2 H, RBC 2.55 L, Hgb 8.4 L, Hct 26.2 L, MCV 102.7 H, MCH 32.9 H, MCHC 32.1, RDW Std Deviation 49.7 H, RDW Coeff of Narendra 13.2, Plt Count 157, MPV 11.2, Immature Gran % (Auto) 0.500, Neut % (Auto) 73.3 H, Lymph % (Auto) 13.7 L, [place] % (Auto) 12.2 H, Eos % (Auto) 0.0, Baso % (Auto) 0.3, Absolute Neuts (auto) 9.7 H, Absolute Lymphs (auto) 1.80, Nucleated RBC % 0, Differential Comment SCANNED, Diff Path Review Reviewed 01/14/20 04:15: Sodium 145, Potassium 4.1, Chloride 119 H, Carbon Dioxide 22.0, Anion Gap 4 L, BUN 34 H, Creatinine 0.56, Estim Creat Clear Calc 124.83, Est GFR (MDRD) Af Amer 167, Est GFR (MDRD) Non-Af 138, BUN/Creatinine Ratio 60.9 H, Glucose 109 H, Calcium 8.6, Total Bilirubin 0.30, AST 31, ALT 22, Alkaline Phosphatase 64, Total Protein 5.9 L, Albumin 1.5 L, Globulin 4.4 H, Albumin/Globulin Ratio 0.3 L Current Medications Acetaminophen (Tylenol Liquid) 650 mg GT Q6H PRN PRN PRN Reason: PAIN 1-10/FEVER Last Admin: 01/14/20 08:30 Dose: 650 mg Documented by: Albuterol Sulfate (Ventolin Aerosols) 2.5 mg INHALATION Q2H PRN PRN PRN Reason: sob/wheezing Calcium/Vitamin D (Os-Santi 500mg + D) 1 tablet GT DAILY ERWIN Last Admin: 01/14/20 09:59 Dose: 1 tablet Documented by: Chlorhexidine Gluconate () 15 ml PO BID [facility] Last Admin: 01/14/20 10:00 Dose: 15 ml Documented by: Dextrose (D50w Syringe) 0 gm IV X1 PRN; Protocol PRN Reason: Hypoglycemia Enoxaparin Sodium (Lovenox) 40 mg SC DAILY [facility] Last Admin: 01/14/20 10:00 Dose: 40 mg Documented by: Famotidine (Pepcid) 20 mg GT BID [facility] Last Admin: 01/14/20 10:00 Dose: 20 mg Documented by: Glucagon () 1 mg IM .X1 PRN PRN Reason: Hypoglycemia Sodium Chloride () 250 mls @ 15 mls/hr IV .[id number] PRN PRN Reason: Saline Flush Piperacillin Sod/Tazobactam (Sod 3.375 gm/ Sodium Chloride) 50 mls @ 12.5 mls/hr IV Q8 [facility] Stop: 01/18/20 22:01 Last Admin: 01/14/20 13:55 Dose: 12.5 mls/hr Documented by: Enteral Nutritional Formula (Vital Af 1.2 Santi Liquid) 1,000 mls @ 60 mls/hr GT .[id number] [facility] Last Admin: 01/14/20 10:05 Dose: 60 mls/hr Documented by: Lacosamide (Vimpat Solution) 200 mg GT BID [facility] Last Admin: 01/14/20 10:04 Dose: 200 mg Documented by: Levetiracetam (Keppra Oral Solution) 1,000 mg GT DAILY [facility] Last Admin: 01/14/20 09:59 Dose: 1,000 mg Documented by: Levetiracetam (Keppra Oral Solution) 1,500 mg GT QHS [facility] Lorazepam (Ativan) 1 mg IV Q2H PRN PRN PRN Reason: SEIZURES Magnesium Oxide (Mag-Ox 400) 400 mg GT DAILY [facility] Last Admin: 01/14/20 10:00 Dose: 400 mg Documented by: Multivitamins/Minerals (Multivitamin With Minerals (Bkc)) [facility] Last Admin: 01/14/20 08:30 Dose: 1 tablet Documented by: Ondansetron HCl (Zofran) 4 mg IV Q8H PRN PRN PRN Reason: NAUSEA/VOMITING Polyethylene Glycol (Miralax) 17 gm GT BID [facility] Senna/Docusate Sodium (Senokot-S, Marilu-Colace) 2 tablet GT BID [facility] Sodium Chloride () 10 - 40 ml IV UD PRN PRN Reason: SALINE FLUSH Last Admin: 01/14/20 09:58 Dose: 40 ml Documented by: Valproic Acid (Depakene) 750 mg GT Q8 [facility] Last Admin: 01/14/20 13:55 Dose: 750 mg Documented by: Zonisamide (Zonegran) 300 mg PO BID [facility] Last Admin: 01/14/20 09:58 Dose: 300 mg Documented by: Medical Necessity - Tobacco Use Smoking Status: Never smoker Assessment/Plan All Active Problems (Last Reviewed 01/12/20 @ 03:[address] Luis Antonio Adams MD) Septic shock (Acute) Severe dehydration (Acute) #1 septic shock secondary to left lower lobe pneumonia-continue antibiotics at this time, I discussed the case with pulmonary medicine today #2 acute hypoxic respiratory failure secondary to left lower lobe pneumonia and septic shock-pulmonary medicine is managing ventilator at this time #3 left lower lobe community-acquired pneumonia-organism unknown #4 MRDD #5 seizure disorder-patient was taken off Klonopin due to concerns of sedation with this medication #6 anemia-etiology unclear, CBC will be rechecked tomorrow #7 candiduria-I do not think this is significant Inpatient E&M: 66976 Subs Hosp L2
[2020-01-14] MEDS: levETIRAcetam Oral Solution 500 MG/5 ML 1500 MG GT (21:05)
[2020-01-14] MEDS: Senna/Docusate Sodium 1 Tablet 2 TABLET GT (21:06)
[2020-01-15] VITALS (21 sets, daily range): BP systolic 92–123; BP diastolic 61–83; PULSE 88–106; RESP 16–23; TEMP 36.8–37.8; O2SAT 96–100
[2020-01-15] MEDS: 0.9% Saline Lock 10 ML Syringe IV ×3 (03:59→13:32)
[2020-01-15] MEDS: Vital AF 1.2 Cal Liquid 1,000 ML 60 ML GT (05:29)
[2020-01-15] MEDS: Valproic Acid 250 MG/5 ML UDC 750 MG GT ×2 (05:29→13:31)
--- NOTE | 2020-01-15 06:14 | PCM.PN.INT ---
Subjective: The patient was seen and examined at the bedside this morning. Events from the last 24 hours have been reviewed. The patient is currently afebrile, hemodynamically stable and maintaining appropriate oxygen saturations on spontaneous mode of mechanical ventilation with an FiO2 requirement of 25%. Secretion production has diminished. However, the patient seems less responsive this morning. Again, she has never demonstrated any tonic-clonic seizure activity. Her Klonopin was discontinued completely yesterday. 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 The findings were indicative of a decreased seizure threshold with high risk of developing seizures. The patient was subsequently evaluated by neurology this morning. Liver function profile was within normal limits. Ammonia level was within normal limits. Valproic acid level was noted to be 88. Objective: The patient's most recent lab work, culture data and imaging studies have all been personally reviewed. Infectious work-up has been unrevealing to date. General: Lethargic, - - Would not open eyes to verbal stimulation or track. HEENT: Atraumatic, Normocephalic, - - Disconjugate gaze Oral: No Gingival or Mucosal Lesions/ Ulcerations, - - Endotracheal and OG tubes remain in place Neck: Supple, No Nodes, Trachea Midline Lungs: No rhonchi, No wheeze, No rales, Diminished Cardiovascular: Regular rate, Regular Rhythm Abdomen: Bowel Sounds Present, Soft, Non Tender, - - Stable PEG tube Extremities: No clubbing, No cyanosis, No edema Skin: No breakdown Musculoskeletal: No Tenderness to Palpation of Joints or Extremities Neurological: - - The patient will only open eyes to painful stimulation. She would not follow any commands. Minimal motor response was noted to nailbed compression and extremities Vital Signs Temp Pulse Resp BP Pulse Ox 99.4 F H 95 17 103/69 100 01/15/20 04:00 01/15/20 05:04 01/15/20 05:04 01/15/20 05:00 01/15/20 05:04 Oxygen Delivery Method Mechanical Ventilator Weight: 138 lb 7.205 oz Body Mass Index (BMI) 24.7 Intake and Output for Last 24 Hours 01/13/20 01/14/20 01/15/20 23:59 23:59 23:59 Intake Total 4916.28 / 4923.78 3389.25 / 3389.25 391 / 391 Output Total 1295 / 1495 2500 / 2500 700 / 700 Balance 3621.28 / 3428.78 889.25 / 889.25 -309 / -309 Labs (Last 48 Hours) 01/12/20 01/13/20 01/13/20 02:55 03:40 14:05 WBC RBC Hgb Hct MCV MCH MCHC RDW Std Deviation RDW Coeff of Narendra Plt Count MPV Immature Gran % (Auto) Neut % (Auto) Lymph % (Auto) [place] % (Auto) Eos % (Auto) Baso % (Auto) Absolute Neuts (auto) Absolute Lymphs (auto) Nucleated RBC % Differential Comment Diff Path Review Reviewed Reviewed Sodium Potassium Chloride Carbon Dioxide Anion Gap BUN Creatinine Estim Creat Clear Calc Est GFR (MDRD) Af Amer Est GFR (MDRD) Non-Af BUN/Creatinine Ratio Glucose Calcium Total Bilirubin AST ALT Alkaline Phosphatase Total Protein Albumin Globulin Albumin/Globulin Ratio Vancomycin Trough Cancelled 01/13/20 01/14/20 01/14/20 14:25 04:15 04:15 WBC 13.2 H RBC 2.55 L Hgb 8.4 L Hct 26.2 L MCV 102.7 H MCH 32.9 H MCHC 32.1 RDW Std Deviation 49.7 H RDW Coeff of Narendra 13.2 Plt Count 157 MPV 11.2 Immature Gran % (Auto) 0.500 Neut % (Auto) 73.3 H Lymph % (Auto) 13.7 L [place] % (Auto) 12.2 H Eos % (Auto) 0.0 Baso % (Auto) 0.3 Absolute Neuts (auto) 9.7 H Absolute Lymphs (auto) 1.80 Nucleated RBC % 0 Differential Comment SCANNED Diff Path Review Reviewed Sodium 145 Potassium 4.1 Chloride 119 H Carbon Dioxide 22.0 Anion Gap 4 L BUN 34 H Creatinine 0.56 Estim Creat Clear Calc 124.83 Est GFR (MDRD) Af Amer 167 Est GFR (MDRD) Non-Af 138 BUN/Creatinine Ratio 60.9 H Glucose 109 H Calcium 8.6 Total Bilirubin 0.30 AST 31 ALT 22 Alkaline Phosphatase 64 Total Protein 5.9 L Albumin 1.5 L Globulin 4.4 H Albumin/Globulin Ratio 0.3 L Vancomycin Trough 22.7 H Microbiology 01/13/20 10:20 Urine Catheter - Jacobo Urine Culture - Preliminary Yeast, not Em albicans 01/12/20 04:00 Sputum, Induced/Lukens Gram Stain - Final 01/12/20 04:00 Sputum, Induced/Lukens Respiratory Culture - Preliminary Culture exhibits no growth. Clinical Impression(s) from Imaging Studies Chest X-Ray 01/12/20 06:20 IMPRESSION: Endotracheal tube is in proper position. The lungs are clear and expanded. Electronically Signed: Hank Marion MD at 7:34 EDT , Service support , Medical Necessity - Tobacco Use Smoking Status: Never smoker Assessment/Plan All Active Problems (Last Reviewed 01/12/20 @ 03:[address] Luis Antonio Adams MD) Septic shock (Acute) Severe dehydration (Acute) RECOMMENDATIONS: 1. Continue current antiepileptic regimen. Liver function profile and valproic acid level were within normal limits. 2. Discontinue Zosyn given implications in the development of seizures. Start Levaquin in its place. 3. Continue patient on assist control mode of mechanical ventilation for now. 4. Continue to withhold all sedating medications. 5. Await improvement in encephalopathy prior to considering extubation. 6. Obtain CT head. 7. Consider transfer to neuro ICU setting for further care. 8. Continue appropriate ICU prophylaxis. IMPRESSIONS: 1. Septic shock secondary to left lower lobe pneumonia Chest x-ray on presentation revealed a possible left lower lobe infiltrate. However, sputum cultures are not currently growing anything. Blood and urine cultures are still pending. The patient was initially being treated with Zosyn, which was later changed to Levaquin over concerns for possible seizure implications. The patient has been hemodynamically stable without the need for further vasopressor support. Coronavirus testing by bronchial washing was negative. The patient does continue to have significant oral secretions, which is apparently baseline for her. 2. Acute hypoxic respiratory failure secondary to left lower lobe pneumonia Continue current supportive measures as noted above with invasive mechanical ventilatory support. Wean FiO2 to maintain oxygen saturations at or above 90%. 3. Encephalopathy The patient does have an unspecified seizure disorder and is currently on a number of antiepileptic medications as an outpatient. All sedating medications have been on hold now for several days and the patient remains encephalopathic. EEG obtained last evening revealed no active seizure activity, but did report a decreased seizure threshold with high risk for developing seizures. Given the patient's current mental state, she would best be served in a neuro ICU setting. In the meantime, we will continue her current antiepileptic medication regimen. CT head is currently pending. 4. MRDD/scoliosis/seizure disorder/poor history Complicates care, management, recovery and prognosis. Continue home medications. TIME: 43 minutes of critical care time, independent of procedures, was spent addressing the patient's septic shock, left lower lobe pneumonia, acute hypoxemic respiratory failure, encephalopathy, review of all data and collaboration with the care team. [id number]) [phone]: [id number] Critical care first hour
[2020-01-15 07:39] LABS: Absolute Lymphocyte Count 1.91 X10^3/uL (0.83-4.51); Absolute Neutrophil Count 5.7 X10^3/uL (2.0-7.7); Basophil# 0.03 X10^3/uL; Basophil% 0.3 % (0-1); Eosinophil# 0.24 X10^3/uL; Eosinophils% 2.6 % (0-5); Hematocrit 25.2 % (37-47); Hemoglobin 7.9 g/dL (12.0-15.0); Lymphocyte # 1.91 X10^3/ul (4.0); Mean Corp Hgb Conc 31.3 g/dL (32-36); Mean Corpuscular Hgb 32.5 pg (27.0-32.0); Mean Corpuscular Volume 103.7 fL (81-99); Mean Platelet Vol. 12.3 fl (6.2-12.0); Monocyte# 1.16 X10^3/uL; Monocyte% 12.7 % (0-10); NRBC Flagged by Analyzer 0 % (0-5); Neutrophil # 5.74 X10^3/uL (2.7-7.7); Neutrophil % 63.1 % (47-70); Platelet Count 134 K/mm3 (150-450); RBC Distribution Width CV 13.4 % (11.6-14.6); RBC Distribution Width SD 51.3 fl (35.1-43.9); Red Blood Count 2.43 M/mm3 (4.2-5.4); White Blood Count 9.1 K/mm3 (4.4-11.0)
[2020-01-15 07:49] LABS: Anion Gap 5 (5-15); BUN 37 mg/dL (7-18); BUN/Creat Ratio 74.6 RATIO (10-20); Calcium,Total 9.2 mg/dL (8.5-10.1); Chloride 119 mmol/L (98-107); EST Glomerular Filtration Rate 158 mL/min (>60); Est Glom Filt Rate - Afr Amer 191 mL/min (>60); Estimated Creatinine Clearance 139.81 ml/min; Glucose 92 mg/dL (74-106); Sodium Level 147 mmol/L (136-145)
[2020-01-15 08:36] LABS: AST(SGOT) 35 U/L (15-37); Alanine Aminotransfer ALT/SGPT 27 U/L (13-56); Albumin, Serum 1.5 g/dL (3.2-5.0); Alkaline Phosphatase 63 U/L (45-117); Bilirubin, Direct 0.08 mg/dL (0.00-0.30); Globulin 4.1 g/dL (2.2-4.2); Protein, Total 5.6 g/dL (6.4-8.2)
[2020-01-15 08:51] LABS: Valproic Acid (Depakene) Level 88 ug/mL (50-100)
--- NOTE | 2020-01-15 10:08 | CT_ITS ---
STUDY: CT BRAIN WITH AND WITHOUT CONTRAST REASON FOR EXAM: Female, 29 years old. UNCONTROLLED SEIZURES, ENCEPHALOPATHY RADIATION DOSAGE (If Supplied By Facility): CTDIvol = ( 60.81 ) mGy, DLP = ( 2225.38 ) mGycm TECHNIQUE: Transaxial CT imaging of the brain was performed pre and post contrast administration. The examination was performed with intravenous administration of . Individualized dose optimization techniques were used for this CT. COMPARISON: Comparison is made with prior study dated 12/26/2019 and 03/26/2019. FINDINGS: Normal soft tissue structures. Normal calvarium. Normal size ventricles and extra-axial spaces for the patient''s age. Normal white matter tracts of the cerebral hemispheres. There are small punctate calcifications of the bilateral basal ganglia. The differential diagnostic considerations includes: Fahrs disease, or endocrine disorders (hyperparathyroidism, hypoparathyroidism, pseudohypoparathyroidism). The incidental discovery of basal ganglia calcifications in a patient less than 50 years of age merits investigation. Normal brainstem. Normal cerebellum. There is no intracranial hemorrhage. There are no findings of an acute ischemic infarction. Normal visualized paranasal sinuses. CT/Brain/Head W/WO Contrast IMPRESSION: Stable examination. Electronically Signed: Vitor Gaines, at 11:52 EDT , Service support ,
[2020-01-15] MEDS: Chlorhexidine 15 ML PO (11:30)
[2020-01-15] MEDS: Multivitamins,Ther W-Minerals Tablet 1 TABLET GT (11:35)
[2020-01-15] MEDS: levETIRAcetam Oral Solution 500 MG/5 ML 1000 MG GT (11:36)
[2020-01-15] MEDS: Enoxaparin 40 MG/0.4 ML Syringe SC (11:37)
[2020-01-15] MEDS: levoFLOXacin IV 750 MG/150 ML BAG 100 MG IV (11:37)
[2020-01-15] MEDS: Magnesium Oxide 400 MG Tablet GT (11:38)
[2020-01-15] MEDS: Calcium Carb/Vitamin D 1 TABLET Tablet GT (11:38)
[2020-01-15] MEDS: Famotidine 20 MG Tablet GT (11:39)
[2020-01-15] MEDS: Lacosamide Solution 100 MG/10 ML UDC 200 MG GT (11:40)
[2020-01-15] MEDS: Zonisamide 50 MG Capsule 300 MG PO (11:54)
--- NOTE | 2020-01-16 09:41 | CASEMGMT ---
RICKY notified Alecia at [facility] that patient was transferred to [facility]. Christina LUO MSW
--- NOTE | 2020-01-17 09:13 | PCM.DC.SUM ---
Discharge Date and Diagnosis Date of Admission: 01/12/20 Date of Discharge: 01/15/20 - Primary Discharge Diagnosis Acute Problems: #1 septic shock secondary to left lower lobe pneumonia #2 acute hypoxic respiratory failure secondary to left lower lobe pneumonia and septic shock #3 community-acquired left lower lobe pneumonia-organism unknown #4 MRDD #5 seizure disorder #6 anemia-etiology unclear #7 candiduria - Secondary Discharge Diagnosis Chronic Problems: Chronic Problems (Last Reviewed 01/12/20 @ 03:[address] Luis Antonio Adams MD) Dental abscess (Chronic) History of seizure disorder (Chronic) Mental retardation, idiopathic moderate (Chronic) Chronic kidney disease (Chronic) Scoliosis (Chronic) Seizures (Chronic) Hospital Course and Treatment Operations: None Procedures: Electroencephalogram Summary of Care Provided: The patient is a 29 year old F was admitted directly to ICU from a [facility] after being intubated in the emergency room due to respiratory distress and decreased mental status. Patient was seen by critical care in the ICU, she required vasopressors to support her blood pressure, chest x-ray was obtained which was read out as normal but this examiner felt that the patient had a left lower lobe pneumonia. She was treated with IV antibiotics and ultimately was not able to be weaned from the vent. Tele-neurology saw the patient in consultation, EEG was performed which showed activity indicating a focal epilepsy and this indicated decreased seizure threshold with high risk of developing seizures. If patient's mental status did not improve it was recommended that she be transferred to a facility for 24-hour EEG monitoring. On 01/15/2020, patient was seen and examined: On examination she appeared unresponsive to verbal stimuli ,she does not appear to be in any distress. Vital signs as documented. Skin warm and dry and without overt rashes. Neck without JVD, thyroid appears normal, trachea is midline, neck is supple. Lungs clear, normal air movement was noted. Heart exam notable for regular rhythm, normal sounds and absence of murmurs, rubs or gallops. Abdomen unremarkable and without evidence of organomegaly, masses, or abdominal aortic enlargement, bowel sounds are present in all 4 quadrants, no abdominal tenderness was noted. Extremities nonedematous, no cyanosis was noted, no clubbing was noted. Neuro: Patient was unresponsive to verbal stimuli she was minimally responsive to painful stimuli.. Psych: Patient is unresponsive to verbal stimuli, she is somewhat responsive to painful stimuli. Arrangements were made for the patient be transferred out to a tertiary care center-[facility] in [facility]. She was stable at the time of discharge her prognosis was guarded due to concerns of ongoing seizures. - Physical Exam Vitals/I&O's: Vital Signs Temp Pulse Resp BP Pulse Ox 98.2 F 104 H 19 H 123/75 H 99 01/15/20 12:00 01/15/20 14:00 01/15/20 14:00 01/15/20 14:00 01/15/20 14:00 Oxygen Delivery Method Mechanical Ventilator Weight: 62.8 kg Body Mass Index (BMI) 24.7 Intake and Output for Last 24 Hours 01/15/20 01/16/20 01/17/20 23:59 23:59 23:59 Intake Total 1162 / 1162 Output Total 1800 / 1800 Balance -638 / -638 Microbiology Past 72 Hours 01/12/20 04:00 Sputum, Induced/Lukens Gram Stain - Final 01/12/20 04:00 Sputum, Induced/Lukens Respiratory Culture - Preliminary Gram variable chavo 01/13/20 10:55 Blood Culture (Wb) - Right Wrist Blood Culture - Preliminary No growth in 48 hours. 01/13/20 10:20 Blood Culture (Wb) - Central Line Blood Culture - Preliminary No growth in 48 hours. 01/13/20 10:20 Urine Catheter - Jacobo Urine Culture - Final Yeast, not Em albicans Home Medications: Medications to take at Discharge Multivitamin with Iron [Daily Dario with Iron] 1 tab GT DAILY 03/26/19 clonazepam 0.5 mg disintegrating tablet 0.5 mg GT UD PRN 05/29/19 Wheelchair #1 ea 07/30/19 Skilled home nursing #1 ea 11/28/19 Acetaminophen Liquid [Tylenol Liquid] 325 mg GT Q8H PRN PRN 01/12/20 Calcium 500+D Tablet Chew 1 tab GT DAILY 01/12/20 Ciprofloxacin [Cipro] 1 tab GT BID 01/12/20 Clobazam 10 mg GT BID 01/12/20 Clobazam 20 mg GT QHS 01/12/20 Divalproex Sodium [Depakote ER] 750 mg GT Q8H 01/12/20 Lacosamide Solution [Vimpat Solution] 200 mg GT BID 01/12/20 Lactose-Reduced Food/Fiber [Isosource 1.5 Santi Tube Feed Lq] 60 ml GT BID 01/12/20 Levetiracetam [Keppra] 10 ml GT DAILY 01/12/20 Levetiracetam [Keppra] 15 ml GT QHS 01/12/20 Magnesium Oxide 400 mg GT DAILY 01/12/20 Multivitamin 1 ea GT DAILY 01/12/20 Polyethylene Glycol 3350 [Miralax] 17 gm GT DAILY PRN 01/12/20 Zonisamide 300 mg PO BID 01/12/20 Primary Care Physician: Zacarias Paz DO [Primary Care Provider] - Disposition: Acute care Hospital Minutes spent on discharge:: 33 Patient Condition:: Stable Medical Necessity - Tobacco Use Smoking Status: Never smoker Meaningful Use Info Meaningful Use Diagnoses (Choose all that apply): None applicable Inpatient E&M: 00474 Disch Hosp
== END 2020-01-15 15:00 | disposition short-term general hospital (02) | DRG 720 ==
PROVIDERS: Internal Medicine; Internal Medicine Critical Care Medicine; Admitting Provider Hospitalist; PCP Family Medicine; Visit Provider Internal Medicine
DX: A41.9 Sepsis, unspecified organism (principal); J18.9 Pneumonia, unspecified organism; R65.21 Severe sepsis with septic shock; J96.01 Acute respiratory failure with hypoxia; G40.119 Localization-related (focal) (partial) symptomatic epilepsy and epileptic syndromes with simple partial seizures, intractable, without status epilepticus; B37.49 Other urogenital candidiasis; K04.7 Periapical abscess without sinus; F71 Moderate intellectual disabilities; M41.125 Adolescent idiopathic scoliosis, thoracolumbar region; E87.6 Hypokalemia; E86.0 Dehydration; G93.40 Encephalopathy, unspecified; N18.2 Chronic kidney disease, stage 2 (mild); D63.1 Anemia in chronic kidney disease; N17.9 Acute kidney failure, unspecified; Z79.899 Other long term (current) drug therapy
CPT/HCPCS: 31720; 70470; 71045; 80048; 80053; 80076; 80164; 80202; 82140; 83605; 85025; 87040; 87070; 87077; 87086; 87088; 87205; 87449; 87635; 87641; 93005; 94002; 94003; 94660; 94799; 95819; 97110; 97161; 97162; 97166; 97802; 97803; J7030; J7040; J7050; Q9967; A4216; J3010; U0003

== ENCOUNTER → 2020-06-04 | Outpatient (CLI) | payer MEDICAID, SELFPAY ==
[2020-01-14 11:57] VITALS: BMI 24.7
[2020-06-04 15:09] LABS: Valproic Acid (Depakene) Level 90 ug/mL (50-100)
[2020-06-04 15:12] LABS: ALB/GLOB Ratio 0.7 RATIO (0.9-2.4); AST(SGOT) 9 U/L (15-37); Alanine Aminotransfer ALT/SGPT 12 U/L (13-56); Albumin, Serum 2.6 g/dL (3.2-5.0); Alkaline Phosphatase 72 U/L (45-117); Anion Gap 7 (5-15); BUN 38 mg/dL (7-18); BUN/Creat Ratio 49.8 RATIO (10-20); Calcium,Total 9.3 mg/dL (8.5-10.1); Chloride 105 mmol/L (98-107); Creatinine, Serum 0.76 mg/dL (0.55-1.02); EST Glomerular Filtration Rate 96 mL/min (>60); Est Glom Filt Rate - Afr Amer 116 mL/min (>60); Globulin 3.5 g/dL (2.2-4.2); Glucose 89 mg/dL (74-106); Potassium 4.4 mmol/L (3.5-5.1); Protein, Total 6.1 g/dL (6.4-8.2); Sodium Level 138 mmol/L (136-145)
[2020-06-08 20:50] LABS: KEPPRA (LEVETIRACETAM) 74.9 ug/mL (10.0-40.0)
== END | disposition home or self-care (01) ==
PROVIDERS: PCP Family Medicine
DX: G40.219 Localization-related (focal) (partial) symptomatic epilepsy and epileptic syndromes with complex partial seizures, intractable, without status epilepticus (principal)
CPT/HCPCS: 80053; 80164; 80177; 82140

== ENCOUNTER → 2020-10-08 | Outpatient (CLI) | payer MEDICAID, SELFPAY ==
[2020-01-14 11:57] VITALS: BMI 24.7
[2020-10-08 09:50] LABS: Absolute Neutrophil Count 2.2 X10^3/uL (2.0-7.7); Basophil# 0.04 X10^3/uL; Basophil% 0.8 % (0-1); Eosinophil# 0.06 X10^3/uL; Eosinophils% 1.1 % (0-5); Hematocrit 34.3 % (37-47); Mean Corp Hgb Conc 32.1 g/dL (32-36); Mean Corpuscular Hgb 31.7 pg (27.0-32.0); Mean Corpuscular Volume 98.8 fL (81-99); Mean Platelet Vol. 12.4 fl (6.2-12.0); Monocyte# 0.98 X10^3/uL; Monocyte% 18.6 % (0-10); NRBC Flagged by Analyzer 0 % (0-5); Neutrophil # 2.17 X10^3/uL (2.7-7.7); Neutrophil % 41.3 % (47-70); Platelet Count 158 K/mm3 (150-450); RBC Distribution Width CV 12.8 % (11.6-14.6); RBC Distribution Width SD 46.5 fl (35.1-43.9); Red Blood Count 3.47 M/mm3 (4.2-5.4); White Blood Count 5.3 K/mm3 (4.4-11.0)
[2020-10-08 09:52] LABS: Valproic Acid (Depakene) Level 83 ug/mL (50-100)
[2020-10-08 09:53] LABS: ALB/GLOB Ratio 0.6 RATIO (0.9-2.4); AST(SGOT) 15 U/L (15-37); Alanine Aminotransfer ALT/SGPT 13 U/L (13-56); Albumin, Serum 2.6 g/dL (3.2-5.0); Alkaline Phosphatase 82 U/L (45-117); Anion Gap 4 (5-15); BUN 33 mg/dL (7-18); BUN/Creat Ratio 41.2 RATIO (10-20); Calcium,Total 8.7 mg/dL (8.5-10.1); Chloride 107 mmol/L (98-107); EST Glomerular Filtration Rate 91 mL/min (>60); Est Glom Filt Rate - Afr Amer 110 mL/min (>60); Glucose 92 mg/dL (74-106); Potassium 4.4 mmol/L (3.5-5.1); Protein, Total 6.6 g/dL (6.4-8.2); Sodium Level 136 mmol/L (136-145)
[2020-10-08 09:56] LABS: Protein, Urine (Random) 12.2 mg/dL (<11.9); Protein:Creat Ratio 310 mg/g CRE (0-200)
[2020-10-08 11:25] LABS: PTHIN 34.5 pg/mL (18.4-80.1)
[2020-10-08 11:30] LABS: Vitamin D,25 Hydroxy 52.4 ng/mL
[2020-10-12 12:05] LABS: KEPPRA (LEVETIRACETAM) 42.2 ug/mL (10.0-40.0)
== END | disposition home or self-care (01) ==
PROVIDERS: PCP Family Medicine; Referring Provider Internal Medicine Nephrology; Visit Provider Internal Medicine Nephrology
DX: G40.219 Localization-related (focal) (partial) symptomatic epilepsy and epileptic syndromes with complex partial seizures, intractable, without status epilepticus (principal); N18.1 Chronic kidney disease, stage 1; D63.1 Anemia in chronic kidney disease; N25.81 Secondary hyperparathyroidism of renal origin
CPT/HCPCS: 80053; 80164; 80177; 82140; 82306; 82570; 83970; 84156; 85025

== ENCOUNTER 2021-07-01 15:33 | Outpatient (CLI) | payer MEDICAID, SELFPAY ==
[2021-07-01 15:35] LABS: Bacteria 0 SEEN /hpf (None Seen); Mucous, Urine 0 SEEN /hpf (<or=2+); Red Blood Cells-Urine 0 SEEN /hpf (0-5); White Blood Cells 0 SEEN /hpf (0-5)
[2021-07-01 17:10] LABS: Color, Urine Yellow (Yellow); Glucose, Dipstick Normal (Normal); Ketone-Dipstick Negative (Negative); Leukocyte Esterase-Dipstick Negative /ul (Negative); Nitrite-Dipstick Negative (Negative); Occult Blood-Urine Negative /ul (Negative); Protein-Dipstick Negative (Negative); Specific Gravity, Urine 1.005 (1.002-1.030); Urine Bilirubin Dipstick Negative (Negative); Urine Clarity Clear (Clear); Urine Urobilinogen Normal (Normal)
[2021-07-01 18:02] LABS: Squamous Epithelial Cells - UA 0-5 SEEN /hpf (5-10)
== END 2021-07-01 23:59 | disposition short-term general hospital (02) ==
LOC: LABSPEC 15:34
PROVIDERS: PCP Family Medicine; Referring Provider Family Medicine; Visit Provider Family Medicine
DX: R30.0 Dysuria (principal)
CPT/HCPCS: 81001; 87086; 87088; 87186

== ENCOUNTER → 2022-04-19 | Outpatient (CLI) | payer MEDICAID, SELFPAY ==
[2022-04-19 15:26] LABS: Absolute Lymphocyte Count 3.04 X10^3/uL (0.83-4.51); Absolute Neutrophil Count 3.1 X10^3/uL (2.0-7.7); Basophil# 0.03 X10^3/uL; Basophil% 0.4 % (0-1); Eosinophil# 0.14 X10^3/uL; Eosinophils% 1.9 % (0-5); Hemoglobin 12.4 g/dL (12.0-15.0); Lymphocyte # 3.04 X10^3/ul (0.83-4.51); Lymphocyte % 41.4 % (19-41); Mean Corp Hgb Conc 32.6 g/dL (32-36); Mean Corpuscular Volume 98.2 fL (81-99); Mean Platelet Vol. 11.1 fl (6.2-12.0); Monocyte# 1.02 X10^3/uL; Monocyte% 13.9 % (0-10); NRBC Flagged by Analyzer 0 % (0-5); Neutrophil # 3.09 X10^3/uL (2.7-7.7); Neutrophil % 42.1 % (47-70); Platelet Count 202 K/mm3 (150-450); RBC Distribution Width SD 46.5 fl (35.1-43.9); Red Blood Count 3.87 M/mm3 (4.2-5.4); White Blood Count 7.3 K/mm3 (4.4-11.0)
[2022-04-19 16:35] LABS: ALB/GLOB Ratio 0.5 RATIO (0.9-2.4); AST(SGOT) 13 U/L (15-37); Alanine Aminotransfer ALT/SGPT 13 U/L (13-56); Albumin, Serum 2.6 g/dL (3.2-5.0); Alkaline Phosphatase 80 U/L (45-117); Anion Gap 5 (5-15); BUN 26 mg/dL (7-18); BUN/Creat Ratio 29.5 RATIO (10-20); Calcium,Total 8.9 mg/dL (8.5-10.1); Chloride 102 mmol/L (98-107); Creatinine, Serum 0.88 mg/dL (0.55-1.02); EST Glomerular Filtration Rate 80 mL/min (>60); Est Glom Filt Rate - Afr Amer 97 mL/min (>60); Globulin 4.8 g/dL (2.2-4.2); Glucose 80 mg/dL (74-106); Potassium 4.7 mmol/L (3.5-5.1); Protein, Total 7.4 g/dL (6.4-8.2); Sodium Level 133 mmol/L (136-145)
== END | disposition home or self-care (01) ==
LOC: BIMLAB 14:23
PROVIDERS: PCP Family Medicine; Visit Provider Family Medicine
DX: Q04.0 Congenital malformations of corpus callosum (principal); G80.9 Cerebral palsy, unspecified
CPT/HCPCS: 36415; 80053; 85025